=== PATIENT | female | born 1955 | race Caucasian/White ===

== ENCOUNTER 2018-01-29 10:00 | Outpatient (RCR) | payer OTHER, BC, SELFPAY ==
--- NOTE | 2018-01-14 09:55 | HP.PTEVAL_ITS ---
Patient's Visit Information ALICJA EISENBERG is a 62 year old F referred to Physical Therapy by MD BERE Krishnan with a diagnosis of gait abnormality, L sided weakness. Date of Evaluation: 01/14/18 Physical Therapist: Lincoln Dorado PT, - Visit Plan Frequency: 2-3x /Week Duration: 6 Weeks Plan: B UE and LE strengthening, balance and proprio ex's, core strengthening, gait training, nustep, and HEP - Subjective Subjective: Pt reports she was seeing her Dr because she was having seizures. Pt reports she had an MRI in July of 2017 which revealed she has had some TIA 's in the past. Pt reports she has had L sided weakness in the past, but notes it is getting worse. Pt reports she has fallen about 3 times in the past year, with her last one occuring 2 weeks ago. Pt reports she has been ambulating with a std cane for an AD. Pt reports she also has noticed decreased energy as a result. 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 No pain at this time, but Pt notes she has a Hx of LBP which she has had injections into for the past 2 years. Pt reports her major goal is to increase her balance and L sided strength. - Objective Neuro: B UE and LE sensation is WNL to light touch other than R LE L3. R pat tendon reflex= 1/3, L= 3/3. MMT: B UE and LE's are gossly 4-/5 to 4/5 throughout. Gait: Pt is able to ambulate greater than 1000 feet with std cane without being limited by fatigue. No episodes of LOB. Balance: Pt is able to DLS with EO/EC for 30 seconds, but is very unsteady constantly reaching out to grab on to objects. 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 Rehabilitation Potential: Good - Anticipated Interventions Patient/Client Instruction: Educate patient on: Condition, Plan of Care For the Purpose of:: To improve self management Therapeutic Exercise to Include: Strength training, Endurance training, Balance training, Gait and locomotor training, Dynamic Lumbar Stabilization For the Purpose of:: To improve muscle performance and motor function, To improve ability to perform ADL's, To increase tolerance to activity/condition/ position, To improve ability of physical actions for home/community/work/leisure , To improve gait and locomotor functions Thank you for the opportunity to evaluate your patient. For Medicare and Medicare HMO plans, please review the plan of care and approve it. It will need to be FAXED BACK to us at [phone] for Medicare purposes. Please let me know if there are questions or concerns regarding this plan of care. Physician Signature: Date:
--- NOTE | 2018-03-17 15:00 | HP.PTDCNRP_ITS ---
HP - Discharge Summary (1) - Patient Information ALICJA EISENBERG was seen in my office for initial evaluation on 01/14/18. The following Plan of Care was established for this patient: Initial Frequency: 2-3x /Week Initial Duration: 6 Weeks - Anticipated Interventions Patient/Client Instruction: Educate patient on: Condition, Plan of Care For the Purpose of:: To improve self management Therapeutic Exercise to Include: Strength training, Endurance training, Balance training, Gait and locomotor training, Dynamic Lumbar Stabilization For the Purpose of:: To improve muscle performance and motor function, To improve ability to perform ADL's, To increase tolerance to activity/condition/ position, To improve ability of physical actions for home/community/work/leisure , To improve gait and locomotor functions This patient was last seen in our office . Pertinent comments regarding their Physical therapy will appear below: Pt was treated for 6 PT visits through the date of 01/31/18. Pt then phoned the clinic the following date to report she was too sore from exercising and wanted to cancel all remaining appointments. At this point I will be discontinuing this patient from physical therapy. I would be happy to see this patient again in the future if found appropriate by the physician. Thank you! Lincoln Dorado, PT,
== END 2018-01-29 19:00 | disposition home or self-care (01) ==
LOC: PT 10:00
PROVIDERS: Family Provider Family Medicine; PCP Family Medicine; Visit Provider Psychiatry & Neurology Neurology
DX: R26.9 Unspecified abnormalities of gait and mobility (principal); R53.1 Weakness
CPT/HCPCS: 97110; 97162

== ENCOUNTER → 2018-04-21 14:18 | Outpatient (CLI) | payer OTHER, BC, SELFPAY ==
[2018-04-21 16:01] LABS: Absolute Lymphocyte Count 1.78 X10^3/ul (0.83-4.51); Absolute Neutrophil Count 2.7 X10^3/uL (2.0-7.7); Basophil# 0.09 X10^3/uL; Basophil% 1.7 % (0-1); Eosinophil# 0.16 X10^3/uL; Hematocrit 39.8 % (37-47); Hemoglobin 12.8 g/dl (12.0-15.0); Lymphocyte # 1.78 X10^3/ul (4.0); Lymphocyte % 33.7 % (19-41); Mean Corp Hgb Conc 32.2 g/gl (32-36); Mean Corpuscular Hgb 29.2 pg (27.0-32.0); Mean Corpuscular Volume 90.7 fL (81-99); Mean Platelet Vol. 9.4 fl (6.2-12.0); Monocyte% 9.5 % (0-10); Neutrophil # 2.74 X10^3/uL (2.7-7.7); Neutrophil % 51.9 % (47-70); Platelet Count 356 K/mm3 (150-450); RBC Distribution Width CV 13.6 % (11.6-14.6); RBC Distribution Width SD 44.8 fl (35.1-43.9); Red Blood Count 4.39 M/mm3 (4.2-5.4); White Blood Count 5.3 K/mm3 (4.4-11.0)
[2018-04-21 16:04] LABS: POSITIVE COUNT NO; POSITIVE DIFFERENTIAL NO; POSITIVE MORPHOLOGY NO
[2018-04-21 16:10] LABS: Anion Gap 7 (5-15); BUN 18 mg/dL (7-18); BUN/Creat Ratio 14.6 RATIO (10-20); Calcium,Total 8.9 mg/dL (8.5-10.1); Chloride 106 mmol/L (98-107); Creatinine, Serum 1.23 mg/dL (0.55-1.02); EST Glomerular Filtration Rate 47 mL/min (>60); Est Glom Filt Rate - Afr Amer 57 mL/min (>60); Glucose 101 mg/dL (74-106); Sodium Level 143 mmol/L (136-145)
== END ==
PROVIDERS: Visit Provider Family Medicine
DX: Z01.818 Encounter for other preprocedural examination (principal); G56.01 Carpal tunnel syndrome, right upper limb
CPT/HCPCS: 36415; 80048; 85025

== ENCOUNTER 2018-05-20 01:48 | Inpatient (IN) | payer OTHER, BC, SELFPAY ==
[2018-05-20] VITALS (13 sets, daily range): BP systolic 122–184; BP diastolic 58–98; PULSE 69–87; RESP 13–27; TEMP 36.4–36.9; O2SAT 90–100; BMI 41.0; BMI 39.8
--- NOTE | 2018-05-20 02:03 | CT_ITS ---
STUDY: CT ABDOMEN AND PELVIS WITHOUT CONTRAST REASON FOR EXAM: Female, 62 years old. Abdominal pain with recent history of cholecystitis RADIATION DOSAGE (If Supplied By Facility): CTDIvol = ( 20.62 ) mGy, DLP = ( 1076.89 ) mGycm TECHNIQUE: Transaxial images were obtained from the dome of the diaphragm to the symphysis pubis without oral contrast, and without intravenous contrast. Sagittal and coronal images were reconstructed. Individualized dose optimization techniques were used for this CT. COMPARISON: None. FINDINGS: Minimal bibasilar dependent atelectasis. The visualized portions of the heart are within normal limits. There is a hypoattenuated collection which courses through the medial aspect of the right hepatic lobe and which appears contiguous with the fundus of the gallbladder. Gallbladder demonstrates marked wall thickening and pericholecystic fat stranding. No biliary duct dilatation. Normal spleen. Normal pancreas. Normal bilateral adrenal glands. Normal right kidney. Normal left kidney. Normal bilateral ureters. Normal visualized stomach. Normal small intestine. Normal colon. The appendix is visualized and appears normal. Normal abdominal aorta. Normal inferior vena cava. Normal retroperitoneum. Normal urinary bladder. Uterus and bilateral adnexa are unremarkable. Bilateral fallopian clips are in place. Normal abdominal wall. Normal osseous structures. CT/Abdomen/Pelvis without Cont IMPRESSION: Findings concerning for acute cholecystitis with an associated hypoattenuated collection coursing through the medial aspect of the right hepatic lobe which appears contiguous with the fundus of the gallbladder, potentially representing an intra-hepatic abscess. Electronically Signed: González Worley MD at 3:12 EDT Tel , Service support ,
[2018-05-20 02:33] LABS: Absolute Lymphocyte Count 1.66 X10^3/ul (0.83-4.51); Absolute Neutrophil Count 3.1 X10^3/uL (2.0-7.7); Basophil# 0.06 X10^3/uL; Eosinophil# 0.18 X10^3/uL; Hematocrit 33.9 % (37-47); Lymphocyte # 1.66 X10^3/ul (4.0); Lymphocyte % 27.7 % (19-41); Mean Corp Hgb Conc 32.4 g/gl (32-36); Mean Corpuscular Hgb 28.1 pg (27.0-32.0); Mean Corpuscular Volume 86.7 fL (81-99); Mean Platelet Vol. 8.6 fl (6.2-12.0); Monocyte# 0.88 X10^3/uL; Monocyte% 14.7 % (0-10); Neutrophil % 51.8 % (47-70); POSITIVE COUNT NO; POSITIVE DIFFERENTIAL NO; POSITIVE MORPHOLOGY NO; Platelet Count 393 K/mm3 (150-450); RBC Distribution Width CV 14.3 % (11.6-14.6); RBC Distribution Width SD 45.3 fl (35.1-43.9); Red Blood Count 3.91 M/mm3 (4.2-5.4)
[2018-05-20 02:50] LABS: Lactic Acid 1.2 mmol/L (0.4-2.0)
--- NOTE | 2018-05-20 02:50 | ED.RN ---
DR CORTÉS NOTIFIED OF K+ RESULTS
[2018-05-20 02:52] LABS: AST(SGOT) 31 U/L (15-37); Alanine Aminotransfer ALT/SGPT 24 U/L (13-56); Albumin, Serum 2.9 g/dL (3.2-5.0); Alkaline Phosphatase 143 U/L (45-117); Anion Gap 8 (5-15); BUN 5 mg/dL (7-18); BUN/Creat Ratio 6.9 RATIO (10-20); Bilirubin, Direct 0.14 mg/dL (0.00-0.30); Calcium,Total 8.8 mg/dL (8.5-10.1); Chloride 99 mmol/L (98-107); Creatinine, Serum 0.72 mg/dL (0.55-1.02); EST Glomerular Filtration Rate 87 mL/min (>60); Est Glom Filt Rate - Afr Amer 105 mL/min (>60); Globulin 3.8 g/dL (2.2-4.2); Glucose 84 mg/dL (74-106); Potassium 2.5 mmol/L (3.5-5.1); Protein, Total 6.7 g/dL (6.4-8.2); Sodium Level 139 mmol/L (136-145)
--- NOTE | 2018-05-20 03:30 | ED.VISSUMM ---
- ER Visit Summary Date of Service: 05/20/18 Chief Complaint: [] Right-sided mid back pain History of Present Illness: The patient is a 62 F [] with right-sided mid back pain since today at 930. She was recently admitted [facility] diagnosed with acute cholecystitis placed on Zosyn as an inpatient. Spent several days in the hospital. Her white blood cell count trended down. She had a CT study that diagnosed this. She was told there is no gallstones. She was discharged on Augmentin orally. Her pain got significantly better. The plan was to do an outpatient lap surgery to remove her gallbladder but she wants to have this done as an outpatient here at [place]. No fevers or chills. No nausea or vomiting Physical Examination: [] Vital signs reviewed General: Well-nourished well-developed Head: Normocephalic atraumatic Eyes: Pupils equal round and reactive to light extraocular movements intact ENT: TMs clear no hemotympanum no trauma Neck: Nontender full range of motion Cardiovascular: Regular rate rhythm no murmurs normal S1-S2 Respiratory: No distress clear to auscultation bilaterally chest nontender Abdomen: Soft nontender nondistended normal bowel sounds no masses Back: Nontender no CVA tenderness Extremities: Nontender active range of motion ?4 extremities no trauma Skin: Normal color no trauma Neuro alert oriented cranial nerves II through XII intact normal strength sensation reflexes Test Results: [] Emergency Department Course and Treatment: [] Patient stated this is similar back pain that she had when she had her cholecystitis. CBC is normal except hemoglobin 1.0. Chemistries normal except potassium 2.5. Liver function tests normal except alk phos 143. Lipase is negative. CT abdomen pelvis shows hypoattenuated collection through the medial right liver lobe that appears contiguous with the gallbladder fundus. There is concern for acute cholecystitis and liver abscess. Patient will be switched to Cipro and Flagyl and given potassium chloride supplementation for her hypokalemia. She will be admitted for further evaluation and treatment of the above Treatment Plan: [] Disposition: [] Impression: [] Acute cholecystitis recurrent Liver abscess Hypokalemia This note was generated with [employer] dictation software. It may contain incorrect words, spelling, and punctuation that were not noted in review of the chart prior to signing ED Disposition - Plan for ED Patient: Chief Complaint: Back Referrals: Stevie Rooney MD [Primary Care Provider] -
[2018-05-20] MEDS: Ciprofloxacin 400 MG/200 ML BAG 200 MG IV ×2 (03:54→21:09)
--- NOTE | 2018-05-20 04:20 | HP.PCM_ITS ---
Problem List (1) Cholecystitis Status: Acute (2) Liver abscess Status: Acute (3) Arthritis Status: Chronic (4) seasonal allergies Status: Chronic (5) Mitochondrial disease Status: Chronic History of Present Illness Date of Admission: 05/20/18 Chief Complaint: abdominal pain The patient is a 62 year old female patient who was discharged last week after a four day stay at [facility] for cholecystitis presents to our ER with right sided mid back pain that began at 9:30 pm this evening. She has been on Augmentin since her discharge yet her CT scan reveals worsening cholecystitis with a 4cm abscess forming with the right lobe of the liver. She prefers to have surgery done in [place]. She will be admitted for treatment of acute cholecystitis and her hypokalemia will need to be replaced prior to a surgery. ] Past Medical History Past Medical History (Chronic Problems): Chronic Problems Arthritis (Chronic) seasonal allergies (Chronic) Seizure (Chronic) CC (collagenous colitis) (Chronic) Mitochondrial disease (Chronic) Allergies Sulfa (Sulfonamide Antibiotics) Adverse Reaction (Verified 01/15/17 21:39) Other Z-GUMARO Adverse Reaction (Uncoded 01/15/17 21:39) Other Home Medications: Ambulatory Orders Medication Instructions Recorded ALPRAZolam [Xanax] 2 mg PO QHS 01/15/17 Albuterol IH (ProAir) [Proair Hfa] 1 - 2 puff INHALATION Q6H PRN PRN 01/15/17 Cholecalciferol (Vitamin D3) 1,000 unit PO QHS 01/15/17 [Vitamin D3] Cyanocobalamin (Vitamin B-12) 1,000 mcg PO DAILY 01/15/17 [Vitamin B-12] Duloxetine Hcl [Cymbalta] 30 mg PO BID 01/15/17 Fluticasone 0.05% [Flonase Nasal 1 spray NASAL DAILY PRN 01/15/17 [place]] Gabapentin [Neurontin] 300 mg PO BIDCM 01/15/17 Lamotrigine [Lamictal] 300 mg PO BID 01/15/17 Lansoprazole 30 mg PO DAILY 01/15/17 Levocarnitine Tartrate 330 mg PO TID 01/15/17 [l-Carnitine] Ubidecarenone [Co Q-10] 200 mg PO TID 01/15/17 busPIRone [Buspar] 15 mg PO TID 01/15/17 Acetaminophen [Tylenol Tablet] 650 mg PO Q6H PRN PRN #0 tablet 01/16/17 Aspirin [Aspir-Low] 81 mg PO DAILY 05/20/18 Pramipexole Di-HCl [Mirapex ER] 3 mg PO QHS 05/20/18 Propranolol HCl [Inderal] 10 mg PO TID 05/20/18 Surgical History: - - tubal Smoking Status: Never smoker - *Family History Maternal History Items: - - lung disease and kidney disease Paternal History Items: - - father with mi 15 years ago, had bypass surgery Review of Systems Constitutional: Denies: Chills, Fever, Weight Change HEENT: Denies: Head Aches, Sinus Congestion, Sinus Drainage Cardiovascular: Denies: Chest Pain, Palpitations Respiratory: Denies: Cough, Shortness of breath at rest, Sputum production Gastrointestinal: Reports: Abdominal Pain, Diarrhea, Nausea. Denies: Vomiting Genitourinary: Denies: Dysuria Musculoskeletal: Reports: - - right back pain. Denies: Joint Pain, Joint Tenderness Skin: Denies: Rash, Wounds Neurological: Denies: Numbness, Tingling, Focal weakness Psychiatric: Denies: Anxiety, Depression, Homicidal Ideations, Suicidal Ideations Hematologic/ Lymphatic: Denies: Easy Bruising, Easy Bleeding VTE Information - Inpt Only VTE Present on Admission: No VTE Mechan Device Prophylaxis: None VTE Pharm Prophylaxis ordered?: Yes Patient Problems: Active and Suspected Problems Cholecystitis (Acute) Liver abscess (Acute) - Physical Exam General: Alert, Oriented x3, Cooperative HEENT: Atraumatic, Normocephalic Neck: Supple Lungs: Clear to auscultation, Normal air movement Cardiovascular: Regular rate, No murmurs Abdomen: Bowel Sounds Present, Tender - ruq Extremities: No edema, Capillary Refill Less than 3 Seconds Skin: No breakdown Musculoskeletal: No Tenderness to Palpation of Joints or Extremities Neurological: Neuro grossly intact Psych/Mental Status: Normal Affect, Appropriate Vital Signs Temp Pulse Resp BP Pulse Ox 97.6 F L 76 18 149/80 H 97 05/20/18 01:48 05/20/18 03:46 05/20/18 03:46 05/20/18 03:46 05/20/18 03:46 Oxygen Delivery Method Room Air Weight: 216 lb 14.958 oz Body Mass Index (BMI) 41.0 Laboratory Tests Past 24 Hrs 05/20/18 05/20/18 05/20/18 02:18 02:18 02:18 WBC 6.0 RBC 3.91 L Hgb 11.0 L Hct 33.9 L MCV 86.7 MCH 28.1 MCHC 32.4 RDW 14.3 RDW Differential 45.3 H Plt Count 393 MPV 8.6 Immature Gran % (Auto) 1.800 H Neut % (Auto) 51.8 Lymph % (Auto) 27.7 [place] % (Auto) 14.7 H Eos % (Auto) 3.0 Baso % (Auto) 1.0 Absolute Neuts (auto) 3.1 Absolute Lymphs (auto) 1.66 Total Counted Not Reportable Sodium 139 Potassium 2.5 L* Chloride 99 Carbon Dioxide 32.0 Anion Gap 8 BUN 5 L Creatinine 0.72 Estim Creat Clear Calc 62.70 Est GFR (MDRD) Af Amer 105 Est GFR (MDRD) Non-Af 87 BUN/Creatinine Ratio 6.9 L Glucose 84 Lactic Acid 1.2 Calcium 8.8 Total Bilirubin 0.40 Direct Bilirubin 0.14 AST 31 ALT 24 Alkaline Phosphatase 143 H Total Protein 6.7 Albumin 2.9 L Globulin 3.8 Assessment/Plan All Active Problems Cholecystitis (Acute) Liver abscess (Acute) Chest pain (Acute) Plan admit to general medical floor - NPO - Consult surgery Dr Gayle - IV ciprofloxacin and flagyl - D51/2NS with 20meq Kcl at 100 cc /hour - cbc, cmp in am - LMWH for DVT prophylaxis - morphine ad zofran prn Code Visit Inpatient E&M: 24777 Init Hosp L3
[2018-05-20] MEDS: Ondansetron 4 MG/2 ML Vial IV ×4 (04:31→21:23)
--- NOTE | 2018-05-20 08:17 | NURSING ---
Pt refuses to have the seizure pads in place, pillows placed. Pt is aware of [facility], but she states she can get in and out of bed easier if she doesn;t use them. Spouse in room at bedside.
[2018-05-20 08:26] LABS: Basophil# 0.12 X10^3/uL; Basophil% 2.2 % (0-1); Eosinophil# 0.21 X10^3/uL; Eosinophils% 3.8 % (0-5); Hematocrit 34.3 % (37-47); Hemoglobin 11.2 g/dl (12.0-15.0); Lymphocyte % 23.7 % (19-41); Mean Corp Hgb Conc 32.7 g/gl (32-36); Mean Corpuscular Hgb 28.6 pg (27.0-32.0); Mean Corpuscular Volume 87.5 fL (81-99); Mean Platelet Vol. 8.7 fl (6.2-12.0); Monocyte# 0.73 X10^3/uL; Monocyte% 13.3 % (0-10); Neutrophil # 2.97 X10^3/uL (2.7-7.7); Neutrophil % 54.1 % (47-70); Platelet Count 453 K/mm3 (150-450); RBC Distribution Width CV 14.2 % (11.6-14.6); RBC Distribution Width SD 44.5 fl (35.1-43.9); Red Blood Count 3.92 M/mm3 (4.2-5.4); White Blood Count 5.5 K/mm3 (4.4-11.0)
[2018-05-20 08:27] LABS: POSITIVE COUNT YES; POSITIVE DIFFERENTIAL NO; POSITIVE MORPHOLOGY YES
[2018-05-20 08:36] LABS: Lipase 109 U/L (73-393)
[2018-05-20 08:40] LABS: ALB/GLOB Ratio 0.8 RATIO (0.9-2.4); AST(SGOT) 29 U/L (15-37); Alanine Aminotransfer ALT/SGPT 24 U/L (13-56); Albumin, Serum 2.9 g/dL (3.2-5.0); Alkaline Phosphatase 142 U/L (45-117); Anion Gap 7 (5-15); BUN 4 mg/dL (7-18); BUN/Creat Ratio 5.9 RATIO (10-20); Calcium,Total 8.4 mg/dL (8.5-10.1); Chloride 103 mmol/L (98-107); Creatinine, Serum 0.67 mg/dL (0.55-1.02); EST Glomerular Filtration Rate 95 mL/min (>60); Est Glom Filt Rate - Afr Amer 115 mL/min (>60); Estimated Creatinine Clearance 67.38 ml/min; Globulin 3.8 g/dL (2.2-4.2); Glucose 85 mg/dL (74-106); Potassium 2.8 mmol/L (3.5-5.1); Protein, Total 6.7 g/dL (6.4-8.2); Sodium Level 140 mmol/L (136-145)
--- NOTE | 2018-05-20 08:50 | PCM.CONS.GEN ---
Problem List (1) Cholecystitis Status: Acute Reason for Consult Date of Consultation: 05/20/18 Reason for Consultation: Cholecystitis and liver abscess History of Present Illness: The patient is a 62 year old F who began to have epigastric pain 9 days ago. She says the pain started in her epigastric region and then moved to her shoulder blades and right upper quadrant. She presented to [facility] last Saturday and was admitted and kept on antibiotics for 4 days and discharged on antibiotics. She said that last night her pain started again and radiated to the back and she presented to our emergency room. She did have nausea today but no vomiting. She is denying fevers or chills. She said they did not remove her gallbladder at [facility] due to the amount of inflammation. Past Medical History Past Medical History (Chronic Problems): Chronic Problems Arthritis (Chronic) seasonal allergies (Chronic) Seizure (Chronic) CC (collagenous colitis) (Chronic) Mitochondrial disease (Chronic) Allergies Sulfa (Sulfonamide Antibiotics) Adverse Reaction (Verified 01/15/17 21:39) Other Z-GUMARO Adverse Reaction (Uncoded 01/15/17 21:39) Other Home Medications: Ambulatory Orders Medication Instructions Recorded ALPRAZolam [Xanax] 2 mg PO QHS 01/15/17 Albuterol IH (ProAir) [Proair Hfa] 1 - 2 puff INHALATION Q6H PRN PRN 01/15/17 Cholecalciferol (Vitamin D3) 1,000 unit PO DINNER 01/15/17 [Vitamin D3] Cyanocobalamin (Vitamin B-12) 1,000 mcg PO DAILY 01/15/17 [Vitamin B-12] Duloxetine Hcl [Cymbalta] 30 mg PO BID 01/15/17 Fluticasone 0.05% [Flonase Nasal 1 spray NASAL DAILY PRN 01/15/17 [place]] Gabapentin [Neurontin] 300 mg PO BIDCM 01/15/17 Lamotrigine [Lamictal] 300 mg PO BID 01/15/17 Lansoprazole 30 mg PO DAILY 01/15/17 Levocarnitine Tartrate 330 mg PO TID 01/15/17 [l-Carnitine] Ubidecarenone [Co Q-10] 200 mg PO TID 01/15/17 busPIRone [Buspar] 15 mg PO TID 01/15/17 Acetaminophen [Tylenol Tablet] 650 mg PO Q6H PRN PRN #0 tablet 01/16/17 Aspirin [Aspir-Low] 81 mg PO DAILY 05/20/18 Pramipexole Di-HCl [Mirapex ER] 3 mg PO QHS 05/20/18 Propranolol HCl [Inderal] 10 mg PO TID 05/20/18 Surgical History: - - tubal Smoking Status: Never smoker - *Family History Maternal History Items: - - lung disease and kidney disease Paternal History Items: - - father with mi 15 years ago, had bypass surgery Review of Systems Constitutional: Denies: Anorexia, Fever HEENT: Denies: Difficulty Swallowing Cardiovascular: Denies: Chest Pain Respiratory: Denies: Cough, Shortness of Breath Gastrointestinal: Reports: Abdominal Pain, Nausea. Denies: Diarrhea, Vomiting Genitourinary: Denies: Dysuria Musculoskeletal: Denies: Joint Tenderness Skin: Denies: Jaundice Neurological: Denies: Balance problems Psychiatric: Reports: Anxiety Hematologic/ Lymphatic: Denies: Anemia Patient Problems: Active and Suspected Problems Cholecystitis (Acute) Liver abscess (Acute) - Physical Exam General: Alert, Oriented x3, Cooperative, No apparent distress HEENT: Atraumatic, PERRLA, EOMI, Normocephalic Oral: Moist Mucosa Neck: Supple, No JVD Lungs: Normal air movement Cardiovascular: Regular rate, Regular Rhythm Abdomen: Soft, Non-Distended, Tender - Mild tenderness to palpation of the right upper quadrant. No guarding or rebound. Musculoskeletal: No Tenderness to Palpation of Joints or Extremities Neurological: Cranial nerves II-XII grossly intact Psych/Mental Status: Normal Affect Vital Signs Temp Pulse Resp BP Pulse Ox 97.8 F 69 16 150/80 H 99 05/20/18 05:23 05/20/18 05:23 05/20/18 05:23 05/20/18 05:23 05/20/18 05:23 Oxygen Delivery Method Room Air Weight: 210 lb 12.191 oz Body Mass Index (BMI) 39.8 Laboratory Tests Past 24 Hrs 05/20/18 05/20/18 05/20/18 07:45 07:45 07:55 WBC 5.5 RBC 3.92 L Hgb 11.2 L Hct 34.3 L MCV 87.5 MCH 28.6 MCHC 32.7 RDW 14.2 RDW Differential 44.5 H Plt Count 453 H MPV 8.7 Immature Gran % (Auto) 2.900 H Neut % (Auto) 54.1 Lymph % (Auto) 23.7 [place] % (Auto) 13.3 H Eos % (Auto) 3.8 Baso % (Auto) 2.2 H Absolute Neuts (auto) 3.0 Absolute Lymphs (auto) 1.30 Total Counted Not Reportable Diff Path Review May foll Sodium 140 Potassium 2.8 L Chloride 103 Carbon Dioxide 30.0 Anion Gap 7 BUN 4 L Creatinine 0.67 Estim Creat Clear Calc 67.38 Est GFR (MDRD) Af Amer 115 Est GFR (MDRD) Non-Af 95 BUN/Creatinine Ratio 5.9 L Glucose 85 Calcium 8.4 L Total Bilirubin 0.40 AST 29 ALT 24 Alkaline Phosphatase 142 H Total Protein 6.7 Albumin 2.9 L Globulin 3.8 Albumin/Globulin Ratio 0.8 L Lipase 109 Clinical Impression(s) from Imaging Studies Abdomen/Pelvis CT 05/20/18 02:03 IMPRESSION: Findings concerning for acute cholecystitis with an associated hypoattenuated collection coursing through the medial aspect of the right hepatic lobe which appears contiguous with the fundus of the gallbladder, potentially representing an intra-hepatic abscess. Electronically Signed: González Worley MD at 3:12 EDT Tel , Service support , Assessment/Plan All Active Problems Cholecystitis (Acute) Liver abscess (Acute) Chest pain (Acute) 62-year-old female with acute cholecystitis and possible liver abscess 1. The patient is now 9 days out from her initial presentation of the illness. There is a lot of inflammation on the patient's CAT scan. At this time I do not recommend surgery due to the amount of inflammation. I recommend percutaneous drainage of the gallbladder and possibly this fluid collection. We would need a CT scan with IV contrast to ensure that it is an abscess first. 2. The patient may then follow-up with myself or Dr. Farr for surgical treatment planned in 6-8 weeks once inflammation has resolved. 3. I will discuss the case with radiology and have them perform a CT scan with IV contrast to ensure that this is an abscess and then perform percutaneous drainage of both the abscess and the gallbladder. She may then be started on a diet and continued on antibiotics and likely discharged home tomorrow if there is no systemic inflammatory response. She would follow-up with myself or Dr. Farr for surgery. 4. I discussed this with the patient in detail. I discussed the risks of surgery at this time and the high likelihood of having to convert to an open surgery or perform partial cholecystectomy due to the amount of inflammation and the abscess nearby. The patient understands the reason for the percutaneous drainage and does consent for drain placement. Cornel Gayle MD Pager: [facility] [address] [place] [address], [address] [place] [address] Office:
--- NOTE | 2018-05-20 08:54 | CON.PCM_ITS ---
Problem List (1) Cholecystitis Status: Acute Reason for Consult Date of Consultation: 05/20/18 Reason for Consultation: Cholecystitis and liver abscess History of Present Illness: The patient is a 62 year old F who began to have epigastric pain 9 days ago. She says the pain started in her epigastric region and then moved to her shoulder blades and right upper quadrant. She presented to [facility] last Saturday and was admitted and kept on antibiotics for 4 days and discharged on antibiotics. She said that last night her pain started again and radiated to the back and she presented to our emergency room. She did have nausea today but no vomiting. She is denying fevers or chills. She said they did not remove her gallbladder at [facility] due to the amount of inflammation. Past Medical History Past Medical History (Chronic Problems): Chronic Problems Arthritis (Chronic) seasonal allergies (Chronic) Seizure (Chronic) CC (collagenous colitis) (Chronic) Mitochondrial disease (Chronic) Allergies Sulfa (Sulfonamide Antibiotics) Adverse Reaction (Verified 01/15/17 21:39) Other Z-GUMARO Adverse Reaction (Uncoded 01/15/17 21:39) Other Home Medications: Ambulatory Orders Medication Instructions Recorded ALPRAZolam [Xanax] 2 mg PO QHS 01/15/17 Albuterol IH (ProAir) [Proair Hfa] 1 - 2 puff INHALATION Q6H PRN PRN 01/15/17 Cholecalciferol (Vitamin D3) 1,000 unit PO DINNER 01/15/17 [Vitamin D3] Cyanocobalamin (Vitamin B-12) 1,000 mcg PO DAILY 01/15/17 [Vitamin B-12] Duloxetine Hcl [Cymbalta] 30 mg PO BID 01/15/17 Fluticasone 0.05% [Flonase Nasal 1 spray NASAL DAILY PRN 01/15/17 [place]] Gabapentin [Neurontin] 300 mg PO BIDCM 01/15/17 Lamotrigine [Lamictal] 300 mg PO BID 01/15/17 Lansoprazole 30 mg PO DAILY 01/15/17 Levocarnitine Tartrate 330 mg PO TID 01/15/17 [l-Carnitine] Ubidecarenone [Co Q-10] 200 mg PO TID 01/15/17 busPIRone [Buspar] 15 mg PO TID 01/15/17 Acetaminophen [Tylenol Tablet] 650 mg PO Q6H PRN PRN #0 tablet 01/16/17 Aspirin [Aspir-Low] 81 mg PO DAILY 05/20/18 Pramipexole Di-HCl [Mirapex ER] 3 mg PO QHS 05/20/18 Propranolol HCl [Inderal] 10 mg PO TID 05/20/18 Surgical History: - - tubal Smoking Status: Never smoker - *Family History Maternal History Items: - - lung disease and kidney disease Paternal History Items: - - father with mi 15 years ago, had bypass surgery Review of Systems Constitutional: Denies: Anorexia, Fever HEENT: Denies: Difficulty Swallowing Cardiovascular: Denies: Chest Pain Respiratory: Denies: Cough, Shortness of Breath Gastrointestinal: Reports: Abdominal Pain, Nausea. Denies: Diarrhea, Vomiting Genitourinary: Denies: Dysuria Musculoskeletal: Denies: Joint Tenderness Skin: Denies: Jaundice Neurological: Denies: Balance problems Psychiatric: Reports: Anxiety Hematologic/ Lymphatic: Denies: Anemia Patient Problems: Active and Suspected Problems Cholecystitis (Acute) Liver abscess (Acute) - Physical Exam General: Alert, Oriented x3, Cooperative, No apparent distress HEENT: Atraumatic, PERRLA, EOMI, Normocephalic Oral: Moist Mucosa Neck: Supple, No JVD Lungs: Normal air movement Cardiovascular: Regular rate, Regular Rhythm Abdomen: Soft, Non-Distended, Tender - Mild tenderness to palpation of the right upper quadrant. No guarding or rebound. Musculoskeletal: No Tenderness to Palpation of Joints or Extremities Neurological: Cranial nerves II-XII grossly intact Psych/Mental Status: Normal Affect Vital Signs Temp Pulse Resp BP Pulse Ox 97.8 F 69 16 150/80 H 99 05/20/18 05:23 05/20/18 05:23 05/20/18 05:23 05/20/18 05:23 05/20/18 05:23 Oxygen Delivery Method Room Air Weight: 210 lb 12.191 oz Body Mass Index (BMI) 39.8 Laboratory Tests Past 24 Hrs 05/20/18 05/20/18 05/20/18 07:45 07:45 07:55 WBC 5.5 RBC 3.92 L Hgb 11.2 L Hct 34.3 L MCV 87.5 MCH 28.6 MCHC 32.7 RDW 14.2 RDW Differential 44.5 H Plt Count 453 H MPV 8.7 Immature Gran % (Auto) 2.900 H Neut % (Auto) 54.1 Lymph % (Auto) 23.7 [place] % (Auto) 13.3 H Eos % (Auto) 3.8 Baso % (Auto) 2.2 H Absolute Neuts (auto) 3.0 Absolute Lymphs (auto) 1.30 Total Counted Not Reportable Diff Path Review May foll Sodium 140 Potassium 2.8 L Chloride 103 Carbon Dioxide 30.0 Anion Gap 7 BUN 4 L Creatinine 0.67 Estim Creat Clear Calc 67.38 Est GFR (MDRD) Af Amer 115 Est GFR (MDRD) Non-Af 95 BUN/Creatinine Ratio 5.9 L Glucose 85 Calcium 8.4 L Total Bilirubin 0.40 AST 29 ALT 24 Alkaline Phosphatase 142 H Total Protein 6.7 Albumin 2.9 L Globulin 3.8 Albumin/Globulin Ratio 0.8 L Lipase 109 Clinical Impression(s) from Imaging Studies Abdomen/Pelvis CT 05/20/18 02:03 IMPRESSION: Findings concerning for acute cholecystitis with an associated hypoattenuated collection coursing through the medial aspect of the right hepatic lobe which appears contiguous with the fundus of the gallbladder, potentially representing an intra-hepatic abscess. Electronically Signed: González Worley MD at 3:12 EDT Tel , Service support , Assessment/Plan All Active Problems Cholecystitis (Acute) Liver abscess (Acute) Chest pain (Acute) 62-year-old female with acute cholecystitis and possible liver abscess 1. The patient is now 9 days out from her initial presentation of the illness. There is a lot of inflammation on the patient's CAT scan. At this time I do not recommend surgery due to the amount of inflammation. I recommend percutaneous drainage of the gallbladder and possibly this fluid collection. We would need a CT scan with IV contrast to ensure that it is an abscess first. 2. The patient may then follow-up with myself or Dr. Farr for surgical treatment planned in 6-8 weeks once inflammation has resolved. 3. I will discuss the case with radiology and have them perform a CT scan with IV contrast to ensure that this is an abscess and then perform percutaneous drainage of both the abscess and the gallbladder. She may then be started on a diet and continued on antibiotics and likely discharged home tomorrow if there is no systemic inflammatory response. She would follow-up with myself or Dr. Farr for surgery. 4. I discussed this with the patient in detail. I discussed the risks of surgery at this time and the high likelihood of having to convert to an open surgery or perform partial cholecystectomy due to the amount of inflammation and the abscess nearby. The patient understands the reason for the percutaneous drainage and does consent for drain placement. Cornel Gayle MD Pager: [facility] [address] [place] [address], [address] [place] [address] Office:
--- NOTE | 2018-05-20 09:21 | CT_ITS ---
PROCEDURE: CT-GUIDED CHOLECYSTOSTOMY TUBE PLACEMENT INDICATION: Female, 62 years old. Acute cholecystitis CT GUIDANCE Individualized dose optimization techniques were used during this procedure CONSENT: The risks, benefits and alternatives to the procedure were explained to the patient, and the patient agreed to the procedure and signed the consent. SEDATION: Intermittent the intravenous and demonstration of Versed and fentanyl by nursing staff under continuous cardiopulmonary monitoring. Sedation less than approximately 20 minutes STERILE BARRIER TECHNIQUE: The following sterile barrier precautions were used during the procedure: hand hygiene; use of 2% chlorhexidine aseptic; use of a cap, mask, sterile gown, sterile gloves, sterile full body drape, and a large sterile sheet. PROCEDURE/TECHNIQUE: The risks, benefits, and alternatives to the procedure were explained to patient, and the patient agreed to the procedure and signed a consent form for the procedure. A timeout was performed to confirm the patient's identity, the type of procedure, to be performed and the site of entry. Patient was positioned decubitus position on the CT scan table. Under CT guidance using sterile technique and after infiltration of the skin and subcutaneous soft tissues with 40 mL of lidocaine 1% 20-gauge needle was introduced in the gallbladder then 0.018 guidewire was advanced and the needle the needle was removed and a 4 Australian sheath was advanced over the guidewire then the existing guidewire is removed and a new 0.035 J-tip guidewire was advanced in the 4 Australian dilator then the 4 Australian guide is removed and the tract is serially dilated up to 8 Australian. An 8 Australian catheter is advanced over the guidewire and is coiled within the gallbladder. The drainage catheter is secured to the skin using an adhesive device and is attached to a bag for continuous drainage. There was no immediate complication. FINDINGS: Gallbladder was successfully drained with an [address]/Abscess/Fistula/Sinus Tract IMPRESSION: Successful cholecystostomy tube placement under CT guidance. Electronically Signed: Jasmin Cowart MD at 12:35 EDT Tel , Service support ,
[2018-05-20 10:52] LABS: International Normalized Ratio 1.1; Prothrombin Time (Protime)PT. 13.7 SECONDS (11.7-14.9)
[2018-05-20 10:53] LABS: Partial Thromboplast Time 34.9 Seconds (24.1-36.2)
--- NOTE | 2018-05-20 10:57 | NURSING ---
CT notified that pt did not want to come because she wanted to get something for her nerves, and has hx of seizures, they said she would get something down there.pt informed.
[2018-05-20] MEDS: 0.9% NaCl Peripheral Flush Adult/Peds IV ×3 (12:22→18:10)
[2018-05-20] MEDS: Morphine 2 MG/ML Syringe IV ×4 (12:22→21:19)
[2018-05-20 12:43] LABS: Magnesium 2.1 mg/dL (1.6-2.6)
--- NOTE | 2018-05-20 13:40 | CASEMGMT ---
RN KRYSTINA Face to Face with patient for initial transition planning/care coordination assessment. RN CM introduced self and role at [facility]. Patient sitting in chair, alert and oriented. Patient willing to participate in assessment and is able to answer all questions appropriately. Care providers, pharmacy, and demographics verified. See link attached. Patient wishes to discharge home, denies need for home health at this time. Patient states she has no further needs or concerns at this time. CM to follow for discharge planning needs that may arise. Disposition Plan: Patient to discharge home with family support and follow-up plans in place.
[2018-05-20] MEDS: lamoTRIgine 150 MG Tablet 300 MG PO ×2 (15:06→21:30)
--- NOTE | 2018-05-20 16:50 | PCM.PN.HOSP ---
Patient Problems: Active and Suspected Problems Cholecystitis (Acute) Liver abscess (Acute) Subjective: Patient was seen and examined. Complains of anxiety. Kept n.p.o. by general surgeon. Went down for CT-guided placement of cholecystostomy tube. Patient denies fever or chills. No seizures seen since admission. Complains of multiple bowel movements today, watery, nonbloody. Vitals/I&O's: Vital Signs Temp Pulse Resp BP Pulse Ox 98.4 F 83 16 154/83 H 96 05/20/18 12:15 05/20/18 15:04 05/20/18 12:15 05/20/18 15:04 05/20/18 12:15 Oxygen Flow Rate (L/min) [6] 2 Oxygen Flow Rate (L/min) 2 Oxygen Delivery Method [6] Nasal Cannula Oxygen Delivery Method [5] Room Air Oxygen Delivery Method [4] Room Air Oxygen Delivery Method [3] Room Air Oxygen Delivery Method [2] Room Air Oxygen Delivery Method [1 ( Room Air Initial Baseline)] Oxygen Delivery Method Room Air Weight: 95.6 kg Body Mass Index (BMI) 39.8 Intake and Output for Last 24 Hours 05/18/18 05/19/18 05/20/18 23:59 23:59 23:59 Intake Total 800 / 800 Output Total 70 / 70 Balance 730 / 730 General: Alert, Oriented x3, Cooperative, No apparent distress HEENT: Atraumatic, PERRLA, EOMI, Normocephalic Oral: Moist Mucosa Neck: Supple, No JVD, Negative Carotid Bruits Lungs: Clear to auscultation, Normal air movement Cardiovascular: Regular rate, Regular Rhythm, Normal S1, Normal S2, No murmurs Abdomen: Bowel Sounds Present, Soft, Non Tender, Tender - over the right upper quadrant, YVETTE drain in situ Extremities: No edema, Capillary Refill Less than 3 Seconds Skin: No rashes Musculoskeletal: No Tenderness to Palpation of Joints or Extremities Lymphatic: No Cervical, Supraclavicular, or Inguinal Adenopathy Neurological: Cranial nerves II-XII grossly intact, Neuro grossly intact Psych/Mental Status: Normal Affect, Appropriate Microbiology Past 72 Hours 05/20/18 12:47 Fluid - Gallbladder Gram Stain - Final Laboratory Results 05/20/18 07:45: WBC 5.5, RBC 3.92 L, Hgb 11.2 L, Hct 34.3 L, MCV 87.5, MCH 28.6, MCHC 32.7, RDW 14.2, RDW Differential 44.5 H, Plt Count 453 H, MPV 8.7, Immature Gran % (Auto) 2.900 H, Neut % (Auto) 54.1, Lymph % (Auto) 23.7, [place] % (Auto) 13.3 H, Eos % (Auto) 3.8, Baso % (Auto) 2.2 H, Absolute Neuts (auto) 3.0, Absolute Lymphs (auto) 1.30, Total Counted Not Reportable, Diff Path Review February05/20/18 07:45: Sodium 140, Potassium 2.8 L, Chloride 103, Carbon Dioxide 30.0, Anion Gap 7, BUN 4 L, Creatinine 0.67, Estim Creat Clear Calc 67.38, Est GFR (MDRD) Af Amer 115, Est GFR (MDRD) Non-Af 95, BUN/Creatinine Ratio 5.9 L, Glucose 85, Calcium 8.4 L, Total Bilirubin 0.40, AST 29, ALT 24, Alkaline Phosphatase 142 H, Total Protein 6.7, Albumin 2.9 L, Globulin 3.8, Albumin/Globulin Ratio 0.8 L 05/20/18 07:45: Magnesium 2.1 05/20/18 07:55: Lipase 109 05/20/18 10:12: PT 13.7, INR 1.1, APTT 34.9 Current Medications Enoxaparin Sodium (Lovenox) 40 mg SC DAILY@1000 [facility] Last Admin: 05/20/18 10:39 Dose: Not Given Ciprofloxacin (Cipro) 400 mg in 200 mls @ 200 mls/hr IV Q12 [facility] Last Admin: 05/20/18 07:59 Dose: Not Given Potassium Chloride/Dextrose/Sod Cl (Kcl 20meq In D5.45ns 1000ml) 1,000 mls @ 100 mls/hr IV .Q10H [facility] Last Admin: 05/20/18 12:17 Dose: 100 mls/hr Metronidazole (Flagyl) 500 mg in 100 mls @ 100 mls/hr IV Q8 [facility] Last Admin: 05/20/18 13:49 Dose: 100 mls/hr Pantoprazole Sodium 40 mg/ (Sodium Chloride) 110 mls @ 330 mls/hr IV Q24 [facility] Last Admin: 05/20/18 15:06 Dose: 330 mls/hr Lamotrigine (Lamictal) 300 mg PO BID [facility] Last Admin: 05/20/18 15:06 Dose: 300 mg Levocarnitine (Carnitor) 330 mg PO TIDCM [facility] Lorazepam (Ativan) 1 mg IV Q6H PRN PRN PRN Reason: ANXIETY Magnesium Hydroxide (Milk Of Magnesia) 30 ml PO DAILY PRN PRN PRN Reason: Constipation Morphine Sulfate () 2 mg IV Q2H PRN PRN PRN Reason: SEVERE PAIN (6-10/10) Last Admin: 05/20/18 15:07 Dose: 2 mg Ondansetron HCl (Zofran) 4 mg IV Q6H PRN PRN PRN Reason: NAUSEA Last Admin: 05/20/18 14:00 Dose: 4 mg Pramipexole Dihydrochloride (Mirapex) 1 mg PO TID [facility] Sodium Chloride () 5 - 30 ml IV UD PRN PRN Reason: SALINE FLUSH Last Admin: 05/20/18 15:07 Dose: 10 ml Medical Necessity - Tobacco Use Smoking Status: Never smoker Assessment/Plan All Active Problems Cholecystitis (Acute) Liver abscess (Acute) Chest pain (Acute) 62-year-old female with past medical history of seizure disorder, mitochondrial disease, recently had right carpal tunnel surgery, comes in with complaints of right upper quadrant pain associated with fever. Patient was admitted to telemetry floor with acute cholecystitis with possible intrahepatic abscess. 1. Acute diarrhea, unclear etiology, will send stool samples for enteric panel, C. difficile Patient had a recent hospital stay for right carpal tunnel surgery 2. Acute cholecystitis with possible intrahepatic abscess seen on CT of the abdomen, general surgery consulted, appreciate recommendations, Ct guidedstatus post cholecystostomy tube by interventional radiology, will trend LFTs 3. Hypokalemia, severe, likely secondary to acute diarrhea, will replace, recheck in a.m. 4. Seizure Disorder, continue on Lamictal 5. Mitochondrial disease 6. Anxiety disorder, home medications on hold because of n.p.o. status, will put on as needed Ativan 7. DVT PPx- Lovenox SC Code Visit Inpatient E&M: 15391 Subs Hosp L2
--- NOTE | 2018-05-20 16:56 | PN_ITS ---
Patient Problems: Active and Suspected Problems Cholecystitis (Acute) Liver abscess (Acute) Subjective: Patient was seen and examined. Complains of anxiety. Kept n.p.o. by general surgeon. Went down for CT-guided placement of cholecystostomy tube. Patient denies fever or chills. No seizures seen since admission. Complains of multiple bowel movements today, watery, nonbloody. Vitals/I&O's: Vital Signs Temp Pulse Resp BP Pulse Ox 98.4 F 83 16 154/83 H 96 05/20/18 12:15 05/20/18 15:04 05/20/18 12:15 05/20/18 15:04 05/20/18 12:15 Oxygen Flow Rate (L/min) [6] 2 Oxygen Flow Rate (L/min) 2 Oxygen Delivery Method [6] Nasal Cannula Oxygen Delivery Method [5] Room Air Oxygen Delivery Method [4] Room Air Oxygen Delivery Method [3] Room Air Oxygen Delivery Method [2] Room Air Oxygen Delivery Method [1 ( Room Air Initial Baseline)] Oxygen Delivery Method Room Air Weight: 95.6 kg Body Mass Index (BMI) 39.8 Intake and Output for Last 24 Hours 05/18/18 05/19/18 05/20/18 23:59 23:59 23:59 Intake Total 800 / 800 Output Total 70 / 70 Balance 730 / 730 General: Alert, Oriented x3, Cooperative, No apparent distress HEENT: Atraumatic, PERRLA, EOMI, Normocephalic Oral: Moist Mucosa Neck: Supple, No JVD, Negative Carotid Bruits Lungs: Clear to auscultation, Normal air movement Cardiovascular: Regular rate, Regular Rhythm, Normal S1, Normal S2, No murmurs Abdomen: Bowel Sounds Present, Soft, Non Tender, Tender - over the right upper quadrant, YVETTE drain in situ Extremities: No edema, Capillary Refill Less than 3 Seconds Skin: No rashes Musculoskeletal: No Tenderness to Palpation of Joints or Extremities Lymphatic: No Cervical, Supraclavicular, or Inguinal Adenopathy Neurological: Cranial nerves II-XII grossly intact, Neuro grossly intact Psych/Mental Status: Normal Affect, Appropriate Microbiology Past 72 Hours 05/20/18 12:47 Fluid - Gallbladder Gram Stain - Final Laboratory Results 05/20/18 07:45: WBC 5.5, RBC 3.92 L, Hgb 11.2 L, Hct 34.3 L, MCV 87.5, MCH 28.6 , MCHC 32.7, RDW 14.2, RDW Differential 44.5 H, Plt Count 453 H, MPV 8.7, Immature Gran % (Auto) 2.900 H, Neut % (Auto) 54.1, Lymph % (Auto) 23.7, [place] % (Auto) 13.3 H, Eos % (Auto) 3.8, Baso % (Auto) 2.2 H, Absolute Neuts (auto) 3.0 , Absolute Lymphs (auto) 1.30, Total Counted Not Reportable, Diff Path Review February05/20/18 07:45: Sodium 140, Potassium 2.8 L, Chloride 103, Carbon Dioxide 30.0, Anion Gap 7, BUN 4 L, Creatinine 0.67, Estim Creat Clear Calc 67.38, Est GFR ( MDRD) Af Amer 115, Est GFR (MDRD) Non-Af 95, BUN/Creatinine Ratio 5.9 L, Glucose 85, Calcium 8.4 L, Total Bilirubin 0.40, AST 29, ALT 24, Alkaline Phosphatase 142 H, Total Protein 6.7, Albumin 2.9 L, Globulin 3.8, Albumin/ Globulin Ratio 0.8 L 05/20/18 07:45: Magnesium 2.1 05/20/18 07:55: Lipase 109 05/20/18 10:12: PT 13.7, INR 1.1, APTT 34.9 Current Medications Enoxaparin Sodium (Lovenox) 40 mg SC DAILY@1000 [facility] Last Admin: 05/20/18 10:39 Dose: Not Given Ciprofloxacin (Cipro) 400 mg in 200 mls @ 200 mls/hr IV Q12 [facility] Last Admin: 05/20/18 07:59 Dose: Not Given Potassium Chloride/Dextrose/Sod Cl (Kcl 20meq In D5.45ns 1000ml) 1,000 mls @ 100 mls/hr IV .Q10H [facility] Last Admin: 05/20/18 12:17 Dose: 100 mls/hr Metronidazole (Flagyl) 500 mg in 100 mls @ 100 mls/hr IV Q8 [facility] Last Admin: 05/20/18 13:49 Dose: 100 mls/hr Pantoprazole Sodium 40 mg/ (Sodium Chloride) 110 mls @ 330 mls/hr IV Q24 [facility] Last Admin: 05/20/18 15:06 Dose: 330 mls/hr Lamotrigine (Lamictal) 300 mg PO BID [facility] Last Admin: 05/20/18 15:06 Dose: 300 mg Levocarnitine (Carnitor) 330 mg PO TIDCM [facility] Lorazepam (Ativan) 1 mg IV Q6H PRN PRN PRN Reason: ANXIETY Magnesium Hydroxide (Milk Of Magnesia) 30 ml PO DAILY PRN PRN PRN Reason: Constipation Morphine Sulfate () 2 mg IV Q2H PRN PRN PRN Reason: SEVERE PAIN (6-10/10) Last Admin: 05/20/18 15:07 Dose: 2 mg Ondansetron HCl (Zofran) 4 mg IV Q6H PRN PRN PRN Reason: NAUSEA Last Admin: 05/20/18 14:00 Dose: 4 mg Pramipexole Dihydrochloride (Mirapex) 1 mg PO TID [facility] Sodium Chloride () 5 - 30 ml IV UD PRN PRN Reason: SALINE FLUSH Last Admin: 05/20/18 15:07 Dose: 10 ml Medical Necessity - Tobacco Use Smoking Status: Never smoker Assessment/Plan All Active Problems Cholecystitis (Acute) Liver abscess (Acute) Chest pain (Acute) 62-year-old female with past medical history of seizure disorder, mitochondrial disease, recently had right carpal tunnel surgery, comes in with complaints of right upper quadrant pain associated with fever. Patient was admitted to telemetry floor with acute cholecystitis with possible intrahepatic abscess. 1. Acute diarrhea, unclear etiology, will send stool samples for enteric panel , C. difficile Patient had a recent hospital stay for right carpal tunnel surgery 2. Acute cholecystitis with possible intrahepatic abscess seen on CT of the abdomen, general surgery consulted, appreciate recommendations, Ct guidedstatus post cholecystostomy tube by interventional radiology, will trend LFTs 3. Hypokalemia, severe, likely secondary to acute diarrhea, will replace, recheck in a.m. 4. Seizure Disorder, continue on Lamictal 5. Mitochondrial disease 6. Anxiety disorder, home medications on hold because of n.p.o. status, will put on as needed Ativan 7. DVT PPx- Lovenox SC Code Visit Inpatient E&M: 84206 Subs Hosp L2
[2018-05-20 18:44] LABS: Anion Gap 11 (5-15); BUN 3 mg/dL (7-18); Calcium,Total 8.2 mg/dL (8.5-10.1); Chloride 105 mmol/L (98-107); EST Glomerular Filtration Rate 108 mL/min (>60); Est Glom Filt Rate - Afr Amer 131 mL/min (>60); Estimated Creatinine Clearance 75.24 ml/min; Glucose 85 mg/dL (74-106); Sodium Level 139 mmol/L (136-145)
[2018-05-20] MEDS: LORazepam 2 MG/ML Syringe 1 MG IV (21:12)
[2018-05-20] MEDS: Pramipexole Di-HCl 1 MG Tablet PO (21:30)
[2018-05-21] MEDS: Morphine 2 MG/ML Syringe IV ×2 (00:51→11:29)
[2018-05-21] MEDS: Ibuprofen 600 MG Tablet PO (00:52)
[2018-05-21 03:00] VITALS: BP 145/78; PULSE 85; RESP 16; TEMP 36.6; O2SAT 98
[2018-05-21] MEDS: LORazepam 2 MG/ML Syringe 1 MG IV ×2 (06:19→12:31)
[2018-05-21] MEDS: Pramipexole Di-HCl 1 MG Tablet PO ×2 (06:25→15:01)
[2018-05-21 06:36] LABS: Hematocrit 34.2 % (37-47); Hemoglobin 11.2 g/dl (12.0-15.0); Mean Corp Hgb Conc 32.7 g/gl (32-36); Mean Corpuscular Hgb 28.6 pg (27.0-32.0); Mean Corpuscular Volume 87.2 fL (81-99); Mean Platelet Vol. 8.6 fl (6.2-12.0); Platelet Count 440 K/mm3 (150-450); RBC Distribution Width CV 14.6 % (11.6-14.6); RBC Distribution Width SD 45.1 fl (35.1-43.9); Red Blood Count 3.92 M/mm3 (4.2-5.4); White Blood Count 5.7 K/mm3 (4.4-11.0)
[2018-05-21 06:40] LABS: ALB/GLOB Ratio 0.7 RATIO (0.9-2.4); AST(SGOT) 27 U/L (15-37); Alanine Aminotransfer ALT/SGPT 23 U/L (13-56); Albumin, Serum 2.6 g/dL (3.2-5.0); Alkaline Phosphatase 121 U/L (45-117); Anion Gap 12 (5-15); BUN 2 mg/dL (7-18); BUN/Creat Ratio 3.3 RATIO (10-20); Calcium,Total 8.3 mg/dL (8.5-10.1); Chloride 104 mmol/L (98-107); EST Glomerular Filtration Rate 108 mL/min (>60); Est Glom Filt Rate - Afr Amer 130 mL/min (>60); Estimated Creatinine Clearance 75.24 ml/min; Globulin 3.5 g/dL (2.2-4.2); Glucose 93 mg/dL (74-106); Potassium 2.8 mmol/L (3.5-5.1); Protein, Total 6.1 g/dL (6.4-8.2); Sodium Level 143 mmol/L (136-145)
[2018-05-21 06:49] LABS: Differential Indicated MANUAL DIFF; POSITIVE COUNT YES; POSITIVE DIFFERENTIAL NO; POSITIVE MORPHOLOGY YES
[2018-05-21 07:06] LABS: Eosinophil 4 % (0-5); Lymphocyte 22 % (19-41); Monocyte 9 % (0-10); Myelocyte 1 (0-0); Neutrophil-Segmented 64 % (47-70); Platelet Estimate ADEQUATE (ADEQ); Red Cell Morphology NORM C+C NORMAL (NORM C&C); Total Cells Counted 100 (MANUAL DIFF)
[2018-05-21 07:07] LABS: Absolute Lymphocyte Count 1.25 X10^3/ul (0.83-4.51); Absolute Neutrophil Count 3.7 X10^3/uL (2.0-7.7); Lymphocyte # 1.25 X10^3/ul (4.0); Neutrophil # 3.65 X10^3/uL (2.7-7.7)
[2018-05-21 07:08] LABS: Atypical Lymphocyte RARE %
--- NOTE | 2018-05-21 07:42 | PCM.PN.SRG ---
Patient Problems: Active and Suspected Problems Cholecystitis (Acute) Liver abscess (Acute) Subjective: Patient is doing well this morning. She still has some right upper quadrant pain. No nausea or vomiting. - Physical Exam General: Alert, Oriented x3, Cooperative, No apparent distress Neck: No JVD Abdomen: - - Abdomen is soft and mildly tender in the right upper quadrant. Perc drain is bilious. Vital Signs Temp Pulse Resp BP Pulse Ox 97.9 F 85 16 145/78 H 98 05/21/18 03:00 05/21/18 03:00 05/21/18 03:00 05/21/18 03:00 05/21/18 03:00 Oxygen Flow Rate (L/min) [6] 2 Oxygen Flow Rate (L/min) 2 Oxygen Delivery Method [6] Nasal Cannula Oxygen Delivery Method [5] Room Air Oxygen Delivery Method [4] Room Air Oxygen Delivery Method [3] Room Air Oxygen Delivery Method [2] Room Air Oxygen Delivery Method [1 ( Room Air Initial Baseline)] Oxygen Delivery Method Room Air Weight: 210 lb 12.191 oz Body Mass Index (BMI) 39.8 Intake and Output for Last 24 Hours 05/19/18 05/20/18 05/21/18 23:59 23:59 23:59 Intake Total 1342 / 1342 1426 / 1426 Output Total 590 / 590 800 / 800 Balance 752 / 752 626 / 626 Microbiology Past 72 Hours 05/20/18 12:47 Gram Stain - Final Fluid - Gallbladder Laboratory Tests Past 24 Hrs 05/20/18 05/20/18 05/20/18 07:45 07:45 07:45 WBC 5.5 RBC 3.92 L Hgb 11.2 L Hct 34.3 L MCV 87.5 MCH 28.6 MCHC 32.7 RDW 14.2 RDW Differential 44.5 H Plt Count 453 H MPV 8.7 Immature Gran % (Auto) 2.900 H Neut % (Auto) 54.1 Lymph % (Auto) 23.7 Travis % (Auto) 13.3 H Eos % (Auto) 3.8 Baso % (Auto) 2.2 H Absolute Neuts (auto) 3.0 Absolute Lymphs (auto) 1.30 Total Counted Not Reportable Neutrophils % (Manual) Lymphocytes % (Manual) Monocytes % (Manual) Eosinophils % (Manual) Myelocytes % Diff Path Review May foll Atypical Lymphocytes Platelet Estimate RBC Morphology PT INR APTT Sodium 140 Potassium 2.8 L Chloride 103 Carbon Dioxide 30.0 Anion Gap 7 BUN 4 L Creatinine 0.67 Estim Creat Clear Calc 67.38 Est GFR (MDRD) Af Amer 115 Est GFR (MDRD) Non-Af 95 BUN/Creatinine Ratio 5.9 L Glucose 85 Calcium 8.4 L Magnesium 2.1 Total Bilirubin 0.40 AST 29 ALT 24 Alkaline Phosphatase 142 H Total Protein 6.7 Albumin 2.9 L Globulin 3.8 Albumin/Globulin Ratio 0.8 L Lipase 05/20/18 05/20/18 05/20/18 07:55 10:12 17:25 WBC RBC Hgb Hct MCV MCH MCHC RDW RDW Differential Plt Count MPV Immature Gran % (Auto) Neut % (Auto) Lymph % (Auto) Travis % (Auto) Eos % (Auto) Baso % (Auto) Absolute Neuts (auto) Absolute Lymphs (auto) Total Counted Neutrophils % (Manual) Lymphocytes % (Manual) Monocytes % (Manual) Eosinophils % (Manual) Myelocytes % Diff Path Review Atypical Lymphocytes Platelet Estimate RBC Morphology PT 13.7 INR 1.1 APTT 34.9 Sodium 139 Potassium 3.0 L Chloride 105 Carbon Dioxide 23.0 Anion Gap 11 BUN 3 L Creatinine 0.60 Estim Creat Clear Calc 75.24 Est GFR (MDRD) Af Amer 131 Est GFR (MDRD) Non-Af 108 BUN/Creatinine Ratio 5.0 L Glucose 85 Calcium 8.2 L Magnesium Total Bilirubin AST ALT Alkaline Phosphatase Total Protein Albumin Globulin Albumin/Globulin Ratio Lipase 109 05/21/18 05/21/18 05:58 05:58 WBC 5.7 RBC 3.92 L Hgb 11.2 L Hct 34.2 L MCV 87.2 MCH 28.6 MCHC 32.7 RDW 14.6 RDW Differential 45.1 H Plt Count 440 MPV 8.6 Immature Gran % (Auto) Neut % (Auto) Not Reportable Lymph % (Auto) Travis % (Auto) Eos % (Auto) Baso % (Auto) Absolute Neuts (auto) 3.7 Absolute Lymphs (auto) 1.25 Total Counted 100 Neutrophils % (Manual) 64 Lymphocytes % (Manual) 22 Monocytes % (Manual) 9 Eosinophils % (Manual) 4 Myelocytes % 1 H Diff Path Review May foll Atypical Lymphocytes RARE Platelet Estimate ADEQUATE RBC Morphology NORM C+C PT INR APTT Sodium 143 Potassium 2.8 L Chloride 104 Carbon Dioxide 27.0 Anion Gap 12 BUN 2 L Creatinine 0.60 Estim Creat Clear Calc 75.24 Est GFR (MDRD) Af Amer 130 Est GFR (MDRD) Non-Af 108 BUN/Creatinine Ratio 3.3 L Glucose 93 Calcium 8.3 L Magnesium Total Bilirubin 0.30 AST 27 ALT 23 Alkaline Phosphatase 121 H Total Protein 6.1 L Albumin 2.6 L Globulin 3.5 Albumin/Globulin Ratio 0.7 L Lipase Medical Necessity - Tobacco Use Smoking Status: Never smoker Assessment/Plan All Active Problems Cholecystitis (Acute) Liver abscess (Acute) Chest pain (Acute) 62-year-old female with acute cholecystitis 1. Patient had percutaneous cholecystostomy tube placed yesterday. Drainage is bilious. Culture is pending. 2. I will order the patient a clear liquid diet and she may advance as tolerated. 3. The patient will need a repeat CT scan either today or tomorrow to see if the liver collection is an abscess. This may be able to be done as an outpatient. This will need to be done with IV contrast. I am also getting the CD from Viraj Thomas so that we can compare her last CAT scan. If this is an abscess it would likely need an additional drain. If it is gone then is likely contiguous with the gallbladder. 4. Patient will be okay for discharge on oral antibiotics likely this evening and will follow-up with me in 2 weeks to schedule outpatient cholecystectomy. Cornel Gayle MD Pager: [facility] [address] [place] [address], [address] [place] [phone] Office:
[2018-05-21 08:45] LABS: Magnesium 1.8 mg/dL (1.6-2.6)
--- NOTE | 2018-05-21 09:18 | PCA ---
Sent a request to [facility] for catscan cd for patient per doctor sue.
[2018-05-21 09:45] VITALS: BP 161/80; PULSE 99; RESP 17; TEMP 36.8; O2SAT 93
--- NOTE | 2018-05-21 09:49 | NURSING ---
refuses seizure precautions.
[2018-05-21] MEDS: Ciprofloxacin 400 MG/200 ML BAG 200 MG IV (11:05)
[2018-05-21] MEDS: Enoxaparin 40 MG/0.4 ML Syringe SC (11:05)
[2018-05-21] MEDS: lamoTRIgine 150 MG Tablet 300 MG PO (11:06)
[2018-05-21] MEDS: 0.9% NaCl Peripheral Flush Adult/Peds IV ×5 (11:29→19:58)
[2018-05-21] MEDS: LEVOCARNITINE 330 MG TABLET PO ×2 (11:31→17:18)
--- NOTE | 2018-05-21 11:48 | CT_ITS ---
STUDY: CT ABDOMEN AND PELVIS WITH CONTRAST REASON FOR EXAM: Female, 62 years old. Liver lesion abscess versus cyst. Status post tube placement one day ago. RADIATION DOSAGE (If Supplied By Facility): CTDIvol = ( 14.35 ) mGy, DLP = ( 964.85 ) mGycm TECHNIQUE: Transaxial images were obtained from the dome of the diaphragm to the symphysis pubis with oral contrast. 100CC ml of Isovue 300 contrast was administered. Sagittal and coronal images were reconstructed. Individualized dose optimization techniques were used for this CT. COMPARISON: CT-guided drainage tube placement 05/20/2018. CT abdomen and pelvis 05/20/2018. FINDINGS: Body wall soft tissues: Percutaneous pigtail catheter on the right, with pigtail terminating in side of the contracted but inflamed gallbladder. Osseous structures: Scoliosis. Inferior chest: Clear lung bases, normal distal esophagus, no cardiomegaly. Coronary calcifications are present. Hepatobiliary: There is a percutaneous transhepatic pigtail catheter transiting the right inferior liver into the gallbladder fossa within the thick-walled inflamed gallbladder. The gallbladder is contracted, partially decompressed compared to imaging performed yesterday. There is inflammatory stranding in the adjacent fat. There is no significant biliary ductal dilatation. The common duct is unremarkable. Pancreas: Mild atrophy. Spleen: Normal. Adrenal glands: Normal. Urogenital: No acute process. Pelvic floor and sidewalls and retroperitoneum: No mass or adenopathy. Vasculature: Mild atherosclerosis. Normal portal venous and mesenteric venous arborization, iliac veins and IVC. Stomach: No acute process. Small bowel and mesentery: No acute process. Large bowel: Normal appendix. Unremarkable large bowel and rectum. Free fluid or free air: None. CT/Abdomen/Pelvis WITH Contrast IMPRESSION: The pigtail catheter appears to be well positioned within the partially contracted inflamed gallbladder. Electronically Signed: Hood Means, at 15:01 EDT Tel , Service support ,
--- NOTE | 2018-05-21 14:26 | PCM.PN.HOSP ---
Patient Problems: Active and Suspected Problems Cholecystitis (Acute) Liver abscess (Acute) Subjective: Patient was seen and examined. She feels better. Has not had any more diarrhea is after the last visit. denies fever or chills or SOB. Vitals are stable. Objective: Physical exam: General: Alert, Oriented x3, Cooperative, No apparent distress HEENT: Atraumatic, PERRLA, EOMI, Normocephalic Oral: Moist Mucosa Neck: Supple, No JVD, Negative Carotid Bruits Lungs: Clear to auscultation, Normal air movement Cardiovascular: Regular rate, Regular Rhythm, Normal S1, Normal S2, No murmurs Abdomen: Bowel Sounds Present, Soft, Non Tender, Tender - over the right upper quadrant, YVETTE drain in situ draining serosanguinous fluid Extremities: No edema, Capillary Refill Less than 3 Seconds Skin: No rashes Musculoskeletal: No Tenderness to Palpation of Joints or Extremities Lymphatic: No Cervical, Supraclavicular, or Inguinal Adenopathy Neurological: Cranial nerves II-XII grossly intact, Neuro grossly intact Psych/Mental Status: Normal Affect, Appropriate Vitals/I&O's: Vital Signs Temp Pulse Resp BP Pulse Ox 98.3 F 99 17 161/80 H 93 05/21/18 09:45 05/21/18 09:45 05/21/18 09:45 05/21/18 09:45 05/21/18 09:45 Oxygen Flow Rate (L/min) [6] 2 Oxygen Flow Rate (L/min) 2 Oxygen Delivery Method [6] Nasal Cannula Oxygen Delivery Method [5] Room Air Oxygen Delivery Method [4] Room Air Oxygen Delivery Method [3] Room Air Oxygen Delivery Method [2] Room Air Oxygen Delivery Method [1 ( Room Air Initial Baseline)] Oxygen Delivery Method Room Air Weight: 95.6 kg Body Mass Index (BMI) 39.8 Intake and Output for Last 24 Hours 05/19/18 05/20/18 05/21/18 23:59 23:59 23:59 Intake Total 1342 / 1342 2195 / 2195 Output Total 590 / 590 1400 / 1400 Balance 752 / 752 795 / 795 Microbiology Past 72 Hours 05/21/18 10:00 Stool Enteric Bacteriology - Final 05/20/18 12:47 Fluid - Gallbladder Gram Stain - Final 05/20/18 12:47 Fluid - Gallbladder Body Fluid Culture - Preliminary No growth-Final to follow Laboratory Results 05/20/18 17:25: Sodium 139, Potassium 3.0 L, Chloride 105, Carbon Dioxide 23.0, Anion Gap 11, BUN 3 L, Creatinine 0.60, Estim Creat Clear Calc 75.24, Est GFR (MDRD) Af Amer 131, Est GFR (MDRD) Non-Af 108, BUN/Creatinine Ratio 5.0 L, Glucose 85, Calcium 8.2 L 05/21/18 05:58: WBC 5.7, RBC 3.92 L, Hgb 11.2 L, Hct 34.2 L, MCV 87.2, MCH 28.6, MCHC 32.7, RDW 14.6, RDW Differential 45.1 H, Plt Count 440, MPV 8.6, Neut % (Auto) Not Reportable, Absolute Neuts (auto) 3.7, Absolute Lymphs (auto) 1.25, Total Counted 100, Neutrophils % (Manual) 64, Lymphocytes % (Manual) 22, Monocytes % (Manual) 9, Eosinophils % (Manual) 4, Myelocytes % 1 H, Diff Path Review May foll, Atypical Lymphocytes RARE, Platelet Estimate ADEQUATE, RBC Morphology NORM C+C 05/21/18 05:58: Sodium 143, Potassium 2.8 L, Chloride 104, Carbon Dioxide 27.0, Anion Gap 12, BUN 2 L, Creatinine 0.60, Estim Creat Clear Calc 75.24, Est GFR (MDRD) Af Amer 130, Est GFR (MDRD) Non-Af 108, BUN/Creatinine Ratio 3.3 L, Glucose 93, Calcium 8.3 L, Total Bilirubin 0.30, AST 27, ALT 23, Alkaline Phosphatase 121 H, Total Protein 6.1 L, Albumin 2.6 L, Globulin 3.5, Albumin/Globulin Ratio 0.7 L 05/21/18 05:58: Magnesium 1.8 Current Medications Enoxaparin Sodium (Lovenox) 40 mg SC DAILY@1000 [facility]I Last Admin: 05/21/18 11:05 Dose: 40 mg Ciprofloxacin (Cipro) 400 mg in 200 mls @ 200 mls/hr IV Q12 [facility] Last Admin: 05/21/18 11:05 Dose: 200 mls/hr Potassium Chloride/Dextrose/Sod Cl (Kcl 20meq In D5.45ns 1000ml) 1,000 mls @ 100 mls/hr IV .Q10H [facility] Last Admin: 05/21/18 06:20 Dose: 100 mls/hr Metronidazole (Flagyl) 500 mg in 100 mls @ 100 mls/hr IV Q8 [facility] Last Admin: 05/21/18 06:20 Dose: 100 mls/hr Pantoprazole Sodium 40 mg/ (Sodium Chloride) 110 mls @ 330 mls/hr IV Q24 [facility] Last Admin: 05/20/18 15:06 Dose: 330 mls/hr Ibuprofen (Motrin) 600 mg PO Q6H PRN PRN PRN Reason: MILD PAIN (1-3/10) Last Admin: 05/21/18 00:52 Dose: 600 mg Lamotrigine (Lamictal) 300 mg PO BID [facility] Last Admin: 05/21/18 11:06 Dose: 300 mg Levocarnitine (Carnitor) 330 mg PO TIDCM [facility] Last Admin: 05/21/18 11:31 Dose: 330 mg Lorazepam (Ativan) 1 mg IV Q6H PRN PRN PRN Reason: ANXIETY Last Admin: 05/21/18 12:31 Dose: 1 mg Magnesium Hydroxide (Milk Of Magnesia) 30 ml PO DAILY PRN PRN PRN Reason: Constipation Morphine Sulfate () 2 mg IV Q2H PRN PRN PRN Reason: SEVERE PAIN (6-10/10) Last Admin: 05/21/18 11:29 Dose: 2 mg Ondansetron HCl (Zofran) 4 mg IV Q6H PRN PRN PRN Reason: NAUSEA Last Admin: 05/20/18 21:23 Dose: 4 mg Pramipexole Dihydrochloride (Mirapex) 1 mg PO TID [facility] Last Admin: 05/21/18 06:25 Dose: 1 mg Sodium Chloride () 5 - 30 ml IV UD PRN PRN Reason: SALINE FLUSH Last Admin: 05/21/18 12:31 Dose: 20 ml Medical Necessity - Tobacco Use Smoking Status: Never smoker Assessment/Plan All Active Problems Cholecystitis (Acute) Liver abscess (Acute) Chest pain (Acute) 62-year-old female with past medical history of seizure disorder, mitochondrial disease, recently had right carpal tunnel surgery, comes in with complaints of right upper quadrant pain associated with fever. Patient was admitted to telemetry floor with acute cholecystitis with possible intrahepatic abscess. 1. Acute diarrhea, unclear etiology, resolved. Stool for enteric panel is negative. 2. Acute cholecystitis with possible intrahepatic abscess seen on CT of the abdomen, general surgery consulted, appreciate recommendations, status post CT guided cholecystostomy tube, improving, on IV Cipro and Flagyl 3. Hypokalemia, severe, likely secondary to acute diarrhea, potassium is 2.8, will replace, recheck in a.m. 4. Seizure Disorder, continue on Lamictal 5. Mitochondrial disease 6. Anxiety disorder, home medications on hold because of n.p.o. status, will put on as needed Ativan 7. DVT PPx- Lovenox SC Code Visit Inpatient E&M: 11848 Subs Hosp L2
--- NOTE | 2018-05-21 14:30 | PN_ITS ---
Patient Problems: Active and Suspected Problems Cholecystitis (Acute) Liver abscess (Acute) Subjective: Patient was seen and examined. She feels better. Has not had any more diarrhea is after the last visit. denies fever or chills or SOB. Vitals are stable. Objective: Physical exam: General: Alert, Oriented x3, Cooperative, No apparent distress HEENT: Atraumatic, PERRLA, EOMI, Normocephalic Oral: Moist Mucosa Neck: Supple, No JVD, Negative Carotid Bruits Lungs: Clear to auscultation, Normal air movement Cardiovascular: Regular rate, Regular Rhythm, Normal S1, Normal S2, No murmurs Abdomen: Bowel Sounds Present, Soft, Non Tender, Tender - over the right upper quadrant, YVETTE drain in situ draining serosanguinous fluid Extremities: No edema, Capillary Refill Less than 3 Seconds Skin: No rashes Musculoskeletal: No Tenderness to Palpation of Joints or Extremities Lymphatic: No Cervical, Supraclavicular, or Inguinal Adenopathy Neurological: Cranial nerves II-XII grossly intact, Neuro grossly intact Psych/Mental Status: Normal Affect, Appropriate Vitals/I&O's: Vital Signs Temp Pulse Resp BP Pulse Ox 98.3 F 99 17 161/80 H 93 05/21/18 09:45 05/21/18 09:45 05/21/18 09:45 05/21/18 09:45 05/21/18 09:45 Oxygen Flow Rate (L/min) [6] 2 Oxygen Flow Rate (L/min) 2 Oxygen Delivery Method [6] Nasal Cannula Oxygen Delivery Method [5] Room Air Oxygen Delivery Method [4] Room Air Oxygen Delivery Method [3] Room Air Oxygen Delivery Method [2] Room Air Oxygen Delivery Method [1 ( Room Air Initial Baseline)] Oxygen Delivery Method Room Air Weight: 95.6 kg Body Mass Index (BMI) 39.8 Intake and Output for Last 24 Hours 05/19/18 05/20/18 05/21/18 23:59 23:59 23:59 Intake Total 1342 / 1342 2195 / 2195 Output Total 590 / 590 1400 / 1400 Balance 752 / 752 795 / 795 Microbiology Past 72 Hours 05/21/18 10:00 Stool Enteric Bacteriology - Final 05/20/18 12:47 Fluid - Gallbladder Gram Stain - Final 05/20/18 12:47 Fluid - Gallbladder Body Fluid Culture - Preliminary No growth-Final to follow Laboratory Results 05/20/18 17:25: Sodium 139, Potassium 3.0 L, Chloride 105, Carbon Dioxide 23.0, Anion Gap 11, BUN 3 L, Creatinine 0.60, Estim Creat Clear Calc 75.24, Est GFR ( MDRD) Af Amer 131, Est GFR (MDRD) Non-Af 108, BUN/Creatinine Ratio 5.0 L, Glucose 85, Calcium 8.2 L 05/21/18 05:58: WBC 5.7, RBC 3.92 L, Hgb 11.2 L, Hct 34.2 L, MCV 87.2, MCH 28.6 , MCHC 32.7, RDW 14.6, RDW Differential 45.1 H, Plt Count 440, MPV 8.6, Neut % ( Auto) Not Reportable, Absolute Neuts (auto) 3.7, Absolute Lymphs (auto) 1.25, Total Counted 100, Neutrophils % (Manual) 64, Lymphocytes % (Manual) 22, Monocytes % (Manual) 9, Eosinophils % (Manual) 4, Myelocytes % 1 H, Diff Path Review May foll, Atypical Lymphocytes RARE, Platelet Estimate ADEQUATE, RBC Morphology NORM C+C 05/21/18 05:58: Sodium 143, Potassium 2.8 L, Chloride 104, Carbon Dioxide 27.0, Anion Gap 12, BUN 2 L, Creatinine 0.60, Estim Creat Clear Calc 75.24, Est GFR ( MDRD) Af Amer 130, Est GFR (MDRD) Non-Af 108, BUN/Creatinine Ratio 3.3 L, Glucose 93, Calcium 8.3 L, Total Bilirubin 0.30, AST 27, ALT 23, Alkaline Phosphatase 121 H, Total Protein 6.1 L, Albumin 2.6 L, Globulin 3.5, Albumin/ Globulin Ratio 0.7 L 05/21/18 05:58: Magnesium 1.8 Current Medications Enoxaparin Sodium (Lovenox) 40 mg SC DAILY@1000 [facility] Last Admin: 05/21/18 11:05 Dose: 40 mg Ciprofloxacin (Cipro) 400 mg in 200 mls @ 200 mls/hr IV Q12 [facility] Last Admin: 05/21/18 11:05 Dose: 200 mls/hr Potassium Chloride/Dextrose/Sod Cl (Kcl 20meq In D5.45ns 1000ml) 1,000 mls @ 100 mls/hr IV .Q10H [facility] Last Admin: 05/21/18 06:20 Dose: 100 mls/hr Metronidazole (Flagyl) 500 mg in 100 mls @ 100 mls/hr IV Q8 [facility] Last Admin: 05/21/18 06:20 Dose: 100 mls/hr Pantoprazole Sodium 40 mg/ (Sodium Chloride) 110 mls @ 330 mls/hr IV Q24 [facility] Last Admin: 05/20/18 15:06 Dose: 330 mls/hr Ibuprofen (Motrin) 600 mg PO Q6H PRN PRN PRN Reason: MILD PAIN (1-3/10) Last Admin: 05/21/18 00:52 Dose: 600 mg Lamotrigine (Lamictal) 300 mg PO BID [facility] Last Admin: 05/21/18 11:06 Dose: 300 mg Levocarnitine (Carnitor) 330 mg PO TIDCM [facility] Last Admin: 05/21/18 11:31 Dose: 330 mg Lorazepam (Ativan) 1 mg IV Q6H PRN PRN PRN Reason: ANXIETY Last Admin: 05/21/18 12:31 Dose: 1 mg Magnesium Hydroxide (Milk Of Magnesia) 30 ml PO DAILY PRN PRN PRN Reason: Constipation Morphine Sulfate () 2 mg IV Q2H PRN PRN PRN Reason: SEVERE PAIN (6-10/10) Last Admin: 05/21/18 11:29 Dose: 2 mg Ondansetron HCl (Zofran) 4 mg IV Q6H PRN PRN PRN Reason: NAUSEA Last Admin: 05/20/18 21:23 Dose: 4 mg Pramipexole Dihydrochloride (Mirapex) 1 mg PO TID [facility] Last Admin: 05/21/18 06:25 Dose: 1 mg Sodium Chloride () 5 - 30 ml IV UD PRN PRN Reason: SALINE FLUSH Last Admin: 05/21/18 12:31 Dose: 20 ml Medical Necessity - Tobacco Use Smoking Status: Never smoker Assessment/Plan All Active Problems Cholecystitis (Acute) Liver abscess (Acute) Chest pain (Acute) 62-year-old female with past medical history of seizure disorder, mitochondrial disease, recently had right carpal tunnel surgery, comes in with complaints of right upper quadrant pain associated with fever. Patient was admitted to telemetry floor with acute cholecystitis with possible intrahepatic abscess. 1. Acute diarrhea, unclear etiology, resolved. Stool for enteric panel is negative. 2. Acute cholecystitis with possible intrahepatic abscess seen on CT of the abdomen, general surgery consulted, appreciate recommendations, status post CT guided cholecystostomy tube, improving, on IV Cipro and Flagyl 3. Hypokalemia, severe, likely secondary to acute diarrhea, potassium is 2.8, will replace, recheck in a.m. 4. Seizure Disorder, continue on Lamictal 5. Mitochondrial disease 6. Anxiety disorder, home medications on hold because of n.p.o. status, will put on as needed Ativan 7. DVT PPx- Lovenox SC Code Visit Inpatient E&M: 65664 Subs Hosp L2
[2018-05-21 14:50] VITALS: BP 144/78; PULSE 92; RESP 18; TEMP 36.8; O2SAT 95
[2018-05-21 15:16] LABS: Pathologist Review Reviewed
--- NOTE | 2018-05-21 15:26 | PN_ITS ---
Progress Note I ordered a CT scan with contrast for the patient today. The radiologist did not believe that the patient has a liver abscess. This is likely gallbladder versus liver cyst. The patient seems to be doing well. She is only try clear liquids. Clinical Impression(s) from Imaging Studies Abdomen/Pelvis CT 05/21/18 11:48 IMPRESSION: The pigtail catheter appears to be well positioned within the partially contracted inflamed gallbladder. Electronically Signed: Hood Means, at 15:01 EDT Tel , Service support , Plan: 1. The patient is draining bile from her cholecystostomy tube. I have advanced her diet to regular diet. From my standpoint, once she is tolerating a regular diet she may be discharged home on oral antibiotics and follow-up with myself or Dr. Farr in 2 weeks to plan cholecystectomy. Cornel Gayle MD Pager: [facility] [address] [place] [address] [address] [place] [address] Office:
[2018-05-21 15:31] LABS: Pathologist Review Reviewed
--- NOTE | 2018-05-21 15:38 | PN.ORTHO_ITS ---
Patient Problems: Active and Suspected Problems Cholecystitis (Acute) Liver abscess (Acute) Subjective: Patient underwent right carpal tunnel release by Dr. Sanchez De on May 07, 2018. Patient was admitted to the hospital and couldn't make appointment at [facility]. Patient states she continues to have pain and numbness/tingling in the right hand. Pain can reach as high as a 7-8/10. Patient currently has IV in that hand. Objective: Incision healing well without erythema, warmth, wound dehiscence, active drainage or signs of infection. Sensation intact to fingers. Does still complain of N/T in the right hand after surgery. ROM: full extension fingers, 75% composite fist. IV placed on dorsum of hand and limited ROM due to pain. - Physical Exam General: Alert, Oriented x3, Cooperative, No apparent distress Vital Signs Temp Pulse Resp BP Pulse Ox 98.2 F 92 18 144/78 H 95 05/21/18 14:50 05/21/18 14:50 05/21/18 14:50 05/21/18 14:50 05/21/18 14:50 Oxygen Flow Rate (L/min) [6] 2 Oxygen Flow Rate (L/min) 2 Oxygen Delivery Method [6] Nasal Cannula Oxygen Delivery Method [5] Room Air Oxygen Delivery Method [4] Room Air Oxygen Delivery Method [3] Room Air Oxygen Delivery Method [2] Room Air Oxygen Delivery Method [1 ( Room Air Initial Baseline)] Oxygen Delivery Method Room Air Weight: 95.6 kg Body Mass Index (BMI) 39.8 Intake and Output for Last 24 Hours 05/19/18 05/20/18 05/21/18 23:59 23:59 23:59 Intake Total 1342 / 1342 2195 / 2195 Output Total 590 / 590 1470 / 1470 Balance 752 / 752 725 / 725 Microbiology Past 72 Hours 05/21/18 10:00 Enteric Bacteriology - Final Stool 05/20/18 12:47 Gram Stain - Final Fluid - Gallbladder Body Fluid Culture - Preliminary No growth-Final to follow Laboratory Tests Past 24 Hrs 05/20/18 05/20/18 05/21/18 07:45 17:25 05:58 WBC 5.7 RBC 3.92 L Hgb 11.2 L Hct 34.2 L MCV 87.2 MCH 28.6 MCHC 32.7 RDW 14.6 RDW Differential 45.1 H Plt Count 440 MPV 8.6 Neut % (Auto) Not Reportable Absolute Neuts (auto) 3.7 Absolute Lymphs (auto) 1.25 Total Counted 100 Neutrophils % (Manual) 64 Lymphocytes % (Manual) 22 Monocytes % (Manual) 9 Eosinophils % (Manual) 4 Myelocytes % 1 H Diff Path Review Reviewed May foll Atypical Lymphocytes RARE Platelet Estimate ADEQUATE RBC Morphology NORM C+C Sodium 139 Potassium 3.0 L Chloride 105 Carbon Dioxide 23.0 Anion Gap 11 BUN 3 L Creatinine 0.60 Estim Creat Clear Calc 75.24 Est GFR (MDRD) Af Amer 131 Est GFR (MDRD) Non-Af 108 BUN/Creatinine Ratio 5.0 L Glucose 85 Calcium 8.2 L Magnesium Total Bilirubin AST ALT Alkaline Phosphatase Total Protein Albumin Globulin Albumin/Globulin Ratio 05/21/18 05/21/18 05:58 05:58 WBC RBC Hgb Hct MCV MCH MCHC RDW RDW Differential Plt Count MPV Neut % (Auto) Absolute Neuts (auto) Absolute Lymphs (auto) Total Counted Neutrophils % (Manual) Lymphocytes % (Manual) Monocytes % (Manual) Eosinophils % (Manual) Myelocytes % Diff Path Review Atypical Lymphocytes Platelet Estimate RBC Morphology Sodium 143 Potassium 2.8 L Chloride 104 Carbon Dioxide 27.0 Anion Gap 12 BUN 2 L Creatinine 0.60 Estim Creat Clear Calc 75.24 Est GFR (MDRD) Af Amer 130 Est GFR (MDRD) Non-Af 108 BUN/Creatinine Ratio 3.3 L Glucose 93 Calcium 8.3 L Magnesium 1.8 Total Bilirubin 0.30 AST 27 ALT 23 Alkaline Phosphatase 121 H Total Protein 6.1 L Albumin 2.6 L Globulin 3.5 Albumin/Globulin Ratio 0.7 L Medical Necessity - Tobacco Use Smoking Status: Never smoker Assessment/Plan All Active Problems Cholecystitis (Acute) Liver abscess (Acute) Chest pain (Acute) 1. s/p Right CTR on May 07, 2018: today the sutures were removed and patient tolerated procedure well. Sterile bandaid was placed. Patient was encouraged to work on ROM of the right hand/fingers daily. Patient can continue Tylenol and NSAID as needed. Discussed with the patient regarding continued N/T and give it time. Encouraged ROM and patient can shower and get wet but no submerging under water for 4 weeks post-op. Patient will need to schedule follow up with Dr. Sanchez De was discharged from the hospital. Will contact [facility] with any complications.
[2018-05-21 18:23] LABS: Anion Gap 9 (5-15); BUN 1 mg/dL (7-18); BUN/Creat Ratio 1.5 RATIO (10-20); Calcium,Total 8.3 mg/dL (8.5-10.1); Chloride 104 mmol/L (98-107); Creatinine, Serum 0.66 mg/dL (0.55-1.02); EST Glomerular Filtration Rate 97 mL/min (>60); Est Glom Filt Rate - Afr Amer 118 mL/min (>60); Glucose 96 mg/dL (74-106); Sodium Level 141 mmol/L (136-145)
--- NOTE | 2018-05-21 19:15 | DCINST_ITS ---
- Discharge Diagnoses Current Active Problems: Current Active and Chronic Problems Cholecystitis (Acute) Liver abscess (Acute) Reason(s) for Visit for Discharge Instructions: Acute cholecystitis You will use the following diet at home:: Regular Your food should be the consistency of: Regular Your liquids should be the consistency of: Regular/Thin Discharge Activity: Return to Normal Activity Additional Instructions: You are encouraged to complete your antibiotics. Follow the instructions given by Dr. Gayle for care for your YVETTE drain. Keep the drain always below your navel. You should remain active as much as you can. Call your doctor if you develop fever, chills, worsening abdominal pain. You can continue on tylenol and ibuprofen for pain as needed. You will need to have repeat blood work done in 3 days in your primary doctor's office. Follow-up in 1 week with your primary doctor to go over your current admissions. You have been prescribed potassium pills. You may not need to take all of them if your blood potassium level is normal. Allergies/Adverse Reactions: Allergies Sulfa (Sulfonamide Antibiotics) Adverse Reaction (Verified 01/15/17 21:39) Other Z-GUMARO Adverse Reaction (Uncoded 01/15/17 21:39) Other Medications to take at Discharge ALPRAZolam [Xanax] 2 mg PO QHS 01/15/17 Albuterol IH (ProAir) [Proair Hfa] 1 - 2 puff INHALATION Q6H PRN PRN 01/15/17 Cholecalciferol (Vitamin D3) [Vitamin D3] 1,000 unit PO DINNER 01/15/17 Cyanocobalamin (Vitamin B-12) [Vitamin B-12] 1,000 mcg PO DAILY 01/15/17 Duloxetine Hcl [Cymbalta] 30 mg PO BID 01/15/17 Fluticasone 0.05% [Flonase Nasal [place]] 1 spray NASAL DAILY PRN 01/15/17 Gabapentin [Neurontin] 300 mg PO BIDCM 01/15/17 Lamotrigine [Lamictal] 300 mg PO BID 01/15/17 Lansoprazole 30 mg PO DAILY 01/15/17 Levocarnitine Tartrate [l-Carnitine] 330 mg PO TID 01/15/17 Ubidecarenone [Co Q-10] 200 mg PO TID 01/15/17 busPIRone [Buspar] 15 mg PO TID 01/15/17 Acetaminophen [Tylenol Tablet] 650 mg PO Q6H PRN PRN #0 tablet 01/16/17 Aspirin [Aspir-Low] 81 mg PO DAILY 05/20/18 Pramipexole Di-HCl [Mirapex ER] 3 mg PO QHS 05/20/18 Propranolol HCl [Inderal (Beta Brianne)] 10 mg PO TID 05/20/18 Ciprofloxacin [Cipro] 500 mg PO BID #14 tab 05/21/18 Metronidazole [Flagyl] 500 mg PO Q8H #21 tab 05/21/18 Potassium Chloride [Klor-Con M20] 40 meq PO DAILY #14 tab 05/21/18 The following prescriptions were given: Potassium Chloride [Klor-Con M20] 40 meq PO DAILY #14 tab Orders to be completed after discharge: Magnesium Location: Laboratory Primary Care Physician: Stevie Rooney MD [Primary Care Provider] - Please follow up with your Primary Care Physician in: within 1 week Test Results: Test results from this visit will be discussed in further detail at your follow- up appointment, if applicable. Please Follow Up With: Robert Farr MD When: within 2 weeks Proposed Discharge Date: 05/21/18
--- NOTE | 2018-05-21 19:16 | DS.PCM_ITS ---
Discharge Date and Diagnosis Date of Admission: 05/20/18 Date of Discharge: 05/21/18 - Primary Discharge Diagnosis Active and Suspected Problems Cholecystitis (Acute) Suspected Liver abscess (Acute) Hypokalemia Hypomagnesemia - Secondary Discharge Diagnosis Chronic Problems Arthritis (Chronic) seasonal allergies (Chronic) Seizure (Chronic) CC (collagenous colitis) (Chronic) Mitochondrial disease (Chronic) Hospital Course and Treatment Imaging Results: 05/21/18 11:48 CT Abd [Abdomen/Pelvis WITH Contrast] [CT] Urgent General surgery Operations: None Procedures: None Summary of Care Provided: 62-year-old female with past medical history of seizure disorder, mitochondrial disease, recently had right carpal tunnel surgery, comes in with complaints of right upper quadrant pain associated with fever. Patient was admitted to telemetry floor with acute cholecystitis with possible intrahepatic abscess. She also had acute diarrhea. 1. Acute diarrhea, unclear etiology, resolved soon into hospital stay. Stool for enteric panel was negative. 2. Acute cholecystitis with possible intrahepatic abscess seen on CT of the abdomen, general surgery consulted, underwent status post CT guided cholecystostomy tube with improvement in pain. Managed on IV cipro and flagyl. Repeat CT scan of abdomen was negative for intraabdominal abscess. Discharged home with YVETTE drain, oral cipro and flagyl. Dressing changes per IR. Follow-up with general surgery. 3. Hypokalemia, hypomagnesemia, replaced. 4. Seizure Disorder,on Lamictal 5. Mitochondrial disease 6. Anxiety disorder, on home Xanax regimen. Discharge Diet: Low fat/ Low Cholesterol, 2000 mg Sodium Diet Discharge Activity: Return to Normal Activity Home Medications: Medications to take at Discharge ALPRAZolam [Xanax] 2 mg PO QHS 01/15/17 Albuterol IH (ProAir) [Proair Hfa] 1 - 2 puff INHALATION Q6H PRN PRN 01/15/17 Cholecalciferol (Vitamin D3) [Vitamin D3] 1,000 unit PO DINNER 01/15/17 Cyanocobalamin (Vitamin B-12) [Vitamin B-12] 1,000 mcg PO DAILY 01/15/17 Duloxetine Hcl [Cymbalta] 30 mg PO BID 01/15/17 Fluticasone 0.05% [Flonase Nasal [place]] 1 spray NASAL DAILY PRN 01/15/17 Gabapentin [Neurontin] 300 mg PO BIDCM 01/15/17 Lamotrigine [Lamictal] 300 mg PO BID 01/15/17 Lansoprazole 30 mg PO DAILY 01/15/17 Levocarnitine Tartrate [l-Carnitine] 330 mg PO TID 01/15/17 Ubidecarenone [Co Q-10] 200 mg PO TID 01/15/17 busPIRone [Buspar] 15 mg PO TID 01/15/17 Acetaminophen [Tylenol Tablet] 650 mg PO Q6H PRN PRN #0 tablet 01/16/17 Aspirin [Aspir-Low] 81 mg PO DAILY 05/20/18 Pramipexole Di-HCl [Mirapex ER] 3 mg PO QHS 05/20/18 Propranolol HCl [Inderal (Beta Brianne)] 10 mg PO TID 05/20/18 Ciprofloxacin [Cipro] 500 mg PO BID #14 tab 05/21/18 Metronidazole [Flagyl] 500 mg PO Q8H #21 tab 05/21/18 Potassium Chloride [Klor-Con M20] 40 meq PO DAILY #14 tab 05/21/18 Following Prescrptions Were Given to Patient: Metronidazole [Flagyl] 500 mg PO Q8H #21 tab Potassium Chloride [Klor-Con M20] 40 meq PO DAILY #14 tab Ciprofloxacin [Cipro] 500 mg PO BID #14 tab Other Amb Orders: Magnesium Location: Laboratory Primary Care Physician: Stevie Rooney MD [Primary Care Provider] - Please follow up with your Primary Care Physician in: within 1 week Please Follow Up With: Robert Farr MD When: within 2 weeks Disposition: Home Minutes spent on discharge:: 45 Patient Condition:: Stable Medical Necessity - Tobacco Use Smoking Status: Never smoker Meaningful Use Info Meaningful Use Diagnoses (Choose all that apply): None applicable Code Visit Inpatient E&M: 51105 Disch Hosp
[2018-05-21 20:31] VITALS: BP 140/76; PULSE 90; RESP 18; TEMP 36.7; O2SAT 99
== END 2018-05-21 20:25 | disposition home or self-care (01) | DRG 410 ==
LOC: ED 02:10 → MS3 04:30
PROVIDERS: Radiology Diagnostic Radiology; Surgery; Admitting Provider Family Medicine; Emergency Provider Emergency Medicine; Family Provider Family Medicine; PCP Family Medicine; Visit Provider Internal Medicine
DX: K81.0 Acute cholecystitis (principal); E87.6 Hypokalemia; E83.42 Hypomagnesemia; R19.7 Diarrhea, unspecified; F41.9 Anxiety disorder, unspecified; G40.909 Epilepsy, unspecified, not intractable, without status epilepticus; E66.9 Obesity, unspecified; Z68.39 Body mass index [BMI] 39.0-39.9, adult; M19.90 Unspecified osteoarthritis, unspecified site; J30.2 Other seasonal allergic rhinitis; Z98.890 Other specified postprocedural states; Z86.73 Personal history of transient ischemic attack (TIA), and cerebral infarction without residual deficits; Z79.51 Long term (current) use of inhaled steroids; Z79.82 Long term (current) use of aspirin; Z79.899 Other long term (current) drug therapy
CPT/HCPCS: 20501; 36415; 74176; 74177; 77012; 80048; 80053; 80076; 83605; 83690; 83735; 85025; 85610; 85730; 87070; 87075; 87205; 87506; 99156; 99157; 99282; J7030; J7040; Q9967; A4216; J0744; J2405

== ENCOUNTER → 2018-05-26 09:04 | Outpatient (CLI) | payer OTHER, BC, SELFPAY ==
[2018-05-26 10:48] LABS: Anion Gap 9 (5-15); BUN 13 mg/dL (7-18); BUN/Creat Ratio 14.7 RATIO (10-20); Chloride 106 mmol/L (98-107); Creatinine, Serum 0.88 mg/dL (0.55-1.02); EST Glomerular Filtration Rate 69 mL/min (>60); Est Glom Filt Rate - Afr Amer 84 mL/min (>60); Glucose 85 mg/dL (74-106); Magnesium 2.2 mg/dL (1.6-2.6); Potassium 4.1 mmol/L (3.5-5.1); Sodium Level 144 mmol/L (136-145)
== END ==
PROVIDERS: Family Provider Family Medicine; PCP Family Medicine; Visit Provider Internal Medicine
DX: E87.6 Hypokalemia (principal)
CPT/HCPCS: 36415; 80048; 83735

== ENCOUNTER 2018-06-04 01:01 | Observation (INO) | payer OTHER, BC, SELFPAY ==
[2018-06-04] VITALS (10 sets, daily range): BP systolic 104–142; BP diastolic 63–90; PULSE 76–97; RESP 12–22; TEMP 36.4–37.1; O2SAT 95–98; BMI 37.5; BMI 37.4
--- NOTE | 2018-06-04 01:29 | CT_ITS ---
STUDY: CT ABDOMEN AND PELVIS WITH CONTRAST REASON FOR EXAM: Female, 62 years old. Back and abdominal pain. YVETTE drain in gallbladder. RADIATION DOSAGE (If Supplied By Facility): CTDIvol = ( 18.44 ) mGy, DLP = ( 1813.51 ) mGycm TECHNIQUE: Transaxial images were obtained from the dome of the diaphragm to the symphysis pubis without oral contrast. 100ML ml of Isovue 370 contrast was administered. Sagittal and coronal images were reconstructed. Individualized dose optimization techniques were used for this CT. COMPARISON: May 21, 2018. FINDINGS: The visualized lung bases are unremarkable. The visualized portions of the heart are within normal limits. Normal liver. Right percutaneous transhepatic catheter with the pigtail in the gallbladder fundus. The gallbladder is contracted. Mild soft tissue stranding adjacent to the gallbladder fossa, decreased. Normal spleen. Normal pancreas. Normal bilateral adrenal glands. Normal right kidney. Normal left kidney. Normal visualized stomach. Normal small intestine. Normal colon. The appendix is well visualized axial image 79 and appears normal. Normal abdominal aorta. Normal inferior vena cava. Normal retroperitoneum. No intra-abdominal free air. Normal urinary bladder. Uterus grossly normal. Postoperative changes of bilateral tubal ligation. No adnexal masses seen. Normal abdominal wall. Normal osseous structures. CT/Abdomen/Pelvis WITH Contrast IMPRESSION: No acute findings in the abdomen or pelvis. No abdominal aortic dissection. Collapsed gallbladder with drainage catheter in the gallbladder fundus. Minimal inflammatory changes decreased since the prior study. Electronically Signed: Buster Read MD at 3:39 EDT , Service support ,
--- NOTE | 2018-06-04 01:30 | CT_ITS ---
STUDY: CTA CHEST REASON FOR EXAM: Female, 62 years old. Back and abdominal pain. YVETTE drain in gallbladder. RADIATION DOSAGE (If Supplied By Facility): CTDIvol = ( 18.44 ) mGy, DLP = ( 1813.51 ) mGycm TECHNIQUE: The examination was performed with the intravenous administration of 100ML ml of Isovue 370 contrast material. Post-processing of the angiographic images was performed, with multiplanar reformation and 3D reconstruction. Individualized dose optimization techniques were used for this CT. COMPARISON: Chest x-ray January 15, 2017. FINDINGS: Normal enhancement of the main pulmonary artery and right and left pulmonary arteries. Normal enhancement of the bilateral peripheral pulmonary arteries. There is no demonstrated pulmonary embolism. Normal thoracic aorta and visualized great vessels. There is no demonstrated aortic dissection. The heart is not enlarged. Coronary artery calcifications. No pericardial effusion. Normal mediastinum. Normal hilar regions. Normal visualized trachea and bronchi. The lungs are well expanded. No pneumothorax. Normal pulmonary parenchyma. Normal pleura. Normal chest wall structures. Normal osseous structures. On the bending press operator view abdominal catheter entering from the right, terminating in the region of the gallbladder fossa by history. CT/CTA Chest W/WO Contrast IMPRESSION: No acute findings in the chest. No pulmonary embolism or arterial dissection. Coronary artery calcifications. Electronically Signed: Buster Read MD at 3:30 EDT , Service support ,
--- NOTE | 2018-06-04 01:31 | ED.VISSUMM ---
- ER Visit Summary Date of Service: 06/04/18 Chief Complaint: Chest pain and back pain History of Present Illness: The patient is a 62 F presenting with chest pain and back pain. She states this started around 11 PM. She complains of chest heaviness/tightness and diffuse back pain and tightness. She complains of abdominal tightness. She had a cholecystostomy tube placed May 20. She was seen by Dr. Gayle yesterday for follow up. She is scheduled for cholecystectomy on June 26. She was doing well at the time of her office visit yesterday. She denies fever. She states she felt sweaty with shortness of breath. Denies vomiting. Denies other complaints. Physical Examination: Vitals are stable. Patient is afebrile. Alert no acute distress. HEENT exam is unremarkable. Neck is supple. Lungs are clear and equal bilaterally. Heart is regular rate and rhythm. Abdomen is soft nontender nondistended. Drain in place Back: Diffuse tenderness Extremities are unremarkable. Skin is warm and dry. No focal neurologic deficit. Remainder of exam is unremarkable. Emergency Department Course and Treatment: Patient given morphine, Zofran IV. CBC, chemistries unremarkable. Liver lipase are normal. Urinalysis unremarkable. Troponin is negative. CTA chest shows no evidence of PE or dissection, CT abdomen and pelvis shows no acute process. Patient states her abdominal pain is better than it has been. She has a history of hyperlipidemia, family history of early heart disease. Will discuss with the hospitalist for observation for her chest pain. Disposition: Observation Impression: Chest pain This note was generated with [employer] dictation software. It may contain incorrect words, spelling, and punctuation that were not noted in review of the chart prior to signing ED Disposition - Plan for ED Patient: Chief Complaint: Abd Pain Referrals: Stevie Rooney MD [Primary Care Provider] -
[2018-06-04] MEDS: Ondansetron 4 MG/2 ML Vial IV (01:57)
[2018-06-04] MEDS: Morphine 4 MG/ML Syringe IV (01:57)
[2018-06-04 01:58] LABS: Bacteria 0 SEEN /hpf (None Seen); Mucous, Urine 0 SEEN /hpf (<or=2+); Red Blood Cells-Urine 0 SEEN /hpf (0-5); White Blood Cells 0 SEEN /hpf (0-5)
[2018-06-04 02:01] LABS: Color, Urine Straw (Yellow); Glucose, Dipstick Normal (Normal); Ketone-Dipstick Negative (Negative); Leukocyte Esterase-Dipstick Negative /ul (Negative); Nitrite-Dipstick Negative (Negative); Occult Blood-Urine Negative /ul (Negative); Protein-Dipstick 15 mg/dl (Negative); Urine Bilirubin Dipstick Negative (Negative); Urine Clarity Clear (Clear); Urine Urobilinogen Normal (Normal)
[2018-06-04 02:04] LABS: Absolute Lymphocyte Count 1.87 X10^3/ul (0.83-4.51); Absolute Neutrophil Count 1.4 X10^3/uL (2.0-7.7); Basophil# 0.12 X10^3/uL; Basophil% 3.1 % (0-1); Eosinophil# 0.16 X10^3/uL; Eosinophils% 4.1 % (0-5); Hematocrit 40.1 % (37-47); Lymphocyte # 1.87 X10^3/ul (4.0); Lymphocyte % 47.6 % (19-41); Mean Corp Hgb Conc 32.4 g/gl (32-36); Mean Corpuscular Hgb 28.5 pg (27.0-32.0); Mean Corpuscular Volume 87.9 fL (81-99); Mean Platelet Vol. 8.9 fl (6.2-12.0); Monocyte# 0.39 X10^3/uL; Monocyte% 9.9 % (0-10); Neutrophil # 1.38 X10^3/uL (2.7-7.7); POSITIVE COUNT NO; POSITIVE DIFFERENTIAL NO; POSITIVE MORPHOLOGY NO; Platelet Count 378 K/mm3 (150-450); RBC Distribution Width CV 14.4 % (11.6-14.6); RBC Distribution Width SD 46.5 fl (35.1-43.9); Red Blood Count 4.56 M/mm3 (4.2-5.4); White Blood Count 3.9 K/mm3 (4.4-11.0)
[2018-06-04 02:07] LABS: Squamous Epithelial Cells - UA 0-5 SEEN /hpf (5-10)
[2018-06-04 02:20] LABS: ALB/GLOB Ratio 1.1 RATIO (0.9-2.4); AST(SGOT) 23 U/L (15-37); Alanine Aminotransfer ALT/SGPT 18 U/L (13-56); Albumin, Serum 3.9 g/dL (3.2-5.0); Alkaline Phosphatase 111 U/L (45-117); Anion Gap 8 (5-15); BUN 12 mg/dL (7-18); BUN/Creat Ratio 12.3 RATIO (10-20); Chloride 105 mmol/L (98-107); Creatinine, Serum 0.98 mg/dL (0.55-1.02); EST Glomerular Filtration Rate 62 mL/min (>60); Est Glom Filt Rate - Afr Amer 75 mL/min (>60); Estimated Creatinine Clearance 46.07 ml/min; Globulin 3.7 g/dL (2.2-4.2); Glucose 91 mg/dL (74-106); Lipase 240 U/L (73-393); Potassium 4.3 mmol/L (3.5-5.1); Protein, Total 7.6 g/dL (6.4-8.2); Sodium Level 138 mmol/L (136-145)
--- NOTE | 2018-06-04 04:19 | PCM.HP.STD ---
Problem List (1) Chest pain Status: Acute (2) Anxiety with depression Status: Chronic (3) Seizure Status: Chronic (4) Cholecystitis Status: Chronic History of Present Illness Date of Admission: 06/04/18 Chief Complaint: chest Pain The patient is a 62 year old F with a significant history of TIA, seizure disorder, anxiety depression and allergies who presented today because of chest pain x1 day. Patient reported that her pain started from her back and it radiated to her chest. The pain is located below her left breast. She describes her pain as a tightness that prevented her from breathing. Her pain started while she was walking inside her home. She appeared clammy. At emergency department CT of the abdomen was done that was unremarkable. On 01-16-2017 she had a stress test done and that was unremarkable. Past Medical History Past Medical History (Chronic Problems): Chronic Problems (Last Updated 06/03/18 @ 13:17 by Cinthya Weeks) Anxiety with depression (Chronic) Cholecystitis (Chronic) Arthritis (Chronic) seasonal allergies (Chronic) Seizure (Chronic) CC (collagenous colitis) (Chronic) Mitochondrial disease (Chronic) Medical History: Medical History (Last Updated 06/03/18 @ 13:17 by Cinthya Weeks) Cholecystitis (Chronic) K81.9 Liver abscess (Inactive) K75.0 Arthritis (Chronic) M19.90 seasonal allergies (Chronic) Seizure (Chronic) R56.9 Chest pain (Acute) R07.9 CC (collagenous colitis) (Chronic) K52.831 Mitochondrial disease (Chronic) E88.40 Allergies Sulfa (Sulfonamide Antibiotics) Adverse Reaction (Verified 06/03/18 13:23) Other Z-GUMARO Adverse Reaction (Uncoded 01/15/17 21:39) Other Home Medications: Ambulatory Orders Medication Instructions Recorded ALPRAZolam [Xanax] 2 mg PO QHS 01/15/17 Albuterol IH (ProAir) [Proair Hfa] 1 - 2 puff INHALATION Q6H PRN PRN 01/15/17 Cholecalciferol (Vitamin D3) 1,000 unit PO DINNER 01/15/17 [Vitamin D3] Cyanocobalamin (Vitamin B-12) 1,000 mcg PO DAILY 01/15/17 [Vitamin B-12] Duloxetine Hcl [Cymbalta] 30 mg PO BID 01/15/17 Fluticasone 0.05% [Flonase Nasal 1 spray NASAL DAILY PRN 01/15/17 [place]] Gabapentin [Neurontin] 300 mg PO BIDCM 01/15/17 Lamotrigine [Lamictal] 300 mg PO BID 01/15/17 Levocarnitine Tartrate 330 mg PO TID 01/15/17 [l-Carnitine] Ubidecarenone [Co Q-10] 200 mg PO TID 01/15/17 busPIRone [Buspar] 15 mg PO TID 01/15/17 Acetaminophen [Tylenol Tablet] 650 mg PO Q6H PRN PRN #0 tab 01/16/17 Aspirin [Aspir-Low] 81 mg PO DAILY 05/20/18 Pramipexole Di-HCl [Mirapex ER] 3 mg PO QHS 05/20/18 Propranolol HCl [Inderal (Beta 10 mg PO TID 05/20/18 Brianne)] Nitrofurantoin Macrocrystal 50 mg PO PRN PRN 06/04/18 [Nitrofurantoin] Surgical History: Surgical History (Last Updated 06/03/18 @ 13:18 by Cinthya Weeks) H/O tubal ligation Z98.51 History of carpal tunnel release Z98.890 Surgical History: - - tubal Smoking Status: Never smoker - *Family History Maternal Family History: Family History (Last Updated 06/03/18 @ 13:18 by Cinthya Weeks) Mother Diabetes Father Heart disease History Items: - - lung disease and kidney disease Paternal Family History: Family History (Last Updated 06/03/18 @ 13:18 by Cinthya Weeks) Mother Diabetes Father Heart disease History Items: - - father with mi 15 years ago, had bypass surgery Review of Systems Constitutional: Reports: - - clammy HEENT: Denies: Head Aches, Sinus Congestion, Sinus Drainage Cardiovascular: Reports: Chest Pain Respiratory: Reports: Shortness of Breath Gastrointestinal: Denies: Abdominal Pain, Nausea, Vomiting Genitourinary: Denies: Dysuria Musculoskeletal: Reports: Back Pain Skin: Denies: Rash, Wounds Neurological: Denies: Numbness, Tingling, Focal weakness Psychiatric: Reports: Anxiety, Depression Hematologic/ Lymphatic: Denies: Easy Bruising, Easy Bleeding VTE Information - Inpt Only VTE Present on Admission: No VTE Mechan Device Prophylaxis: None VTE Pharm Prophylaxis ordered?: Yes - Physical Exam General: Alert, Oriented x3, Cooperative HEENT: Atraumatic, PERRLA, EOMI, Normocephalic Neck: Supple, No JVD, Negative Carotid Bruits Lungs: Clear to auscultation, Normal air movement Cardiovascular: Regular rate, No murmurs, - - Mild tenderness below left breast. Mild tenderness at mid back. Abdomen: Bowel Sounds Present, - - YVETTE drain from right upper abdomen. Extremities: No edema, Capillary Refill Less than 3 Seconds Skin: No rashes, No breakdown Musculoskeletal: No Tenderness to Palpation of Joints or Extremities Neurological: Cranial nerves II-XII grossly intact Psych/Mental Status: Normal Affect, Appropriate Vital Signs Temp Pulse Resp BP Pulse Ox 98.2 F 76 12 111/63 98 06/04/18 01:02 06/04/18 03:25 06/04/18 03:25 06/04/18 03:25 06/04/18 03:25 Oxygen Delivery Method Room Air Weight: 90.2 kg Body Mass Index (BMI) 37.5 Laboratory Tests Past 24 Hrs 06/04/18 06/04/18 06/04/18 01:55 01:55 01:55 WBC 3.9 L RBC 4.56 Hgb 13.0 Hct 40.1 MCV 87.9 MCH 28.5 MCHC 32.4 RDW 14.4 RDW Differential 46.5 H Plt Count 378 MPV 8.9 Immature Gran % (Auto) 0.300 Neut % (Auto) 35.0 L Lymph % (Auto) 47.6 H [place] % (Auto) 9.9 Eos % (Auto) 4.1 Baso % (Auto) 3.1 H Absolute Neuts (auto) 1.4 L Absolute Lymphs (auto) 1.87 Total Counted Not Reportable Sodium 138 Potassium 4.3 Chloride 105 Carbon Dioxide 25.0 Anion Gap 8 BUN 12 Creatinine 0.98 Estim Creat Clear Calc 46.07 Est GFR (MDRD) Af Amer 75 Est GFR (MDRD) Non-Af 62 BUN/Creatinine Ratio 12.3 Glucose 91 Calcium 9.0 Total Bilirubin 0.60 AST 23 ALT 18 Alkaline Phosphatase 111 Troponin I < 0.015 Total Protein 7.6 Albumin 3.9 Globulin 3.7 Albumin/Globulin Ratio 1.1 Lipase 240 Urine Color Straw Urine Clarity Clear Urine pH 6.0 Ur Specific [place] 1.010 Urine Protein 15 H Urine Glucose (UA) Normal Urine Ketones Negative Urine Occult Blood Negative Urine Nitrite Negative Urine Bilirubin Negative Urine Urobilinogen Normal Ur Leukocyte Esterase Negative Urine RBC 0 SEEN Urine WBC 0 SEEN Ur Squamous Epith Cells 0-5 SEEN Urine Bacteria 0 SEEN Urine Mucus 0 SEEN Assessment/Plan All Active Problems (Last Updated 06/03/18 @ 13:17 by Cinthya Weeks) Chest pain (Acute) The patient is a 62 year old F with a significant history of TIA, seizure disorder, anxiety depression and allergies who presented today because of chest pain x1 day. Her chest pain may be due to anxiety. However because of a history of hyperlipidemia and family history of heart disease will do a cardiac workup. Chest Pain Admit to a monitored bed on PCU Aspirin 325?1. ASA 81 mg p.o. daily Serial cardiac enzymes Stat EKG as needed for chest pain Stress test in the AM Cholecystitis YVETTE drain in place. Patient reports that her gallbladder will be taken out on 06-26-2018 Seizure Continue Lamictal. Nerve pain Continue gabapentin Anxiety and depression continue BuSpar and Cymbalta DVT prophylaxis Subcutaneous heparin Code Visit OBSV E&M: 10307 Initial observation care L3
--- NOTE | 2018-06-04 05:22 | NURSING ---
Called ED spray drier operatorFaith HOFFMAN at this time to confirm Pt okay to come to PCU.
[2018-06-04 06:36] LABS: Prothrombin Time (Protime)PT. 13.6 SECONDS (11.7-14.9)
[2018-06-04 06:37] LABS: Partial Thromboplast Time 31.9 Seconds (24.1-36.2)
[2018-06-04 06:40] LABS: Absolute Lymphocyte Count 2.02 X10^3/ul (0.83-4.51); Absolute Neutrophil Count 1.1 X10^3/uL (2.0-7.7); Anion Gap 7 (5-15); BUN 11 mg/dL (7-18); BUN/Creat Ratio 11.7 RATIO (10-20); Basophil% 2.7 % (0-1); Calcium,Total 8.8 mg/dL (8.5-10.1); Chloride 108 mmol/L (98-107); Creatinine, Serum 0.94 mg/dL (0.55-1.02); EST Glomerular Filtration Rate 65 mL/min (>60); Eosinophil# 0.15 X10^3/uL; Eosinophils% 4.1 % (0-5); Est Glom Filt Rate - Afr Amer 78 mL/min (>60); Estimated Creatinine Clearance 48.03 ml/min; Glucose 90 mg/dL (74-106); Hematocrit 38.6 % (37-47); Hemoglobin 12.2 g/dl (12.0-15.0); Lymphocyte # 2.02 X10^3/ul (4.0); Lymphocyte % 54.7 % (19-41); Mean Corp Hgb Conc 31.6 g/gl (32-36); Mean Corpuscular Hgb 28.2 pg (27.0-32.0); Mean Corpuscular Volume 89.1 fL (81-99); Mean Platelet Vol. 8.6 fl (6.2-12.0); Monocyte% 8.1 % (0-10); Neutrophil # 1.12 X10^3/uL (2.7-7.7); Neutrophil % 30.4 % (47-70); POSITIVE COUNT NO; POSITIVE DIFFERENTIAL NO; POSITIVE MORPHOLOGY NO; Platelet Count 342 K/mm3 (150-450); Potassium 4.4 mmol/L (3.5-5.1); RBC Distribution Width CV 14.4 % (11.6-14.6); RBC Distribution Width SD 47.3 fl (35.1-43.9); Red Blood Count 4.33 M/mm3 (4.2-5.4); Sodium Level 143 mmol/L (136-145); Thyroid Stim Hormone (TSH) 4.47 uIU/mL (0.358-3.74); White Blood Count 3.7 K/mm3 (4.4-11.0)
[2018-06-04] MEDS: Pramipexole Di-HCl 1 MG Tablet PO (07:00)
[2018-06-04] MEDS: busPIRone 15 MG TABLET PO (07:00)
[2018-06-04] MEDS: Aspirin 81 MG TAB.CHEW 324 MG PO (07:00)
[2018-06-04] MEDS: Gabapentin 300 MG Capsule PO (11:15)
[2018-06-04] MEDS: DULoxetine Hcl 30 MG Capsule PO (11:15)
[2018-06-04] MEDS: lamoTRIgine 150 MG Tablet 300 MG PO (11:16)
--- NOTE | 2018-06-04 13:49 | STRESSREP_ITS ---
Stress Test Report Date: 06/04/2018 Procedure: Pharmacologic stress nuclear imaging study Indications: Chest pain Consent: Per the patient Procedure: The patient underwent pharmacologic (Regadenoson) evaluation with a peak heart rate of 114 beats per minute (71 predicted maximal heart rate) and a peak blood pressure of 142/70 mmHg. The baseline ECG demonstrated normal sinus rhythm. The peak pharmacologic ECG demonstrated no obvious ECG changes. There were no cardiac dysrhythmias pretest, during pharmacologic infusion, or recovery. There was no complaint of chest discomfort during pharmacologic infusion or recovery. The examination was discontinued secondary to completion of protocol. Impression: 1. Pharmacologic (Regadenoson) evaluation 2. Peak pharmacologic ECG with no obvious ECG changes. 3. There were no cardiac dysrhythmias pretest, during pharmacologic infusion, or recovery 4. Nuclear images pending Myocardial perfusion imaging study: Technique: The patient was injected with 11.9 millicuries of technetium 99m Cardiolite and subsequently rest SPECT Cardiolite nuclear imaging was obtained in the horizontal long, vertical long, and short axis views. The patient underwent pharmacologic (Regadenoson) evaluation with a peak heart rate of 114 beats per minute (71 % percent predicted maximal heart rate) and a peak blood pressure of 42/70 mmHg. The patient was injected with 35.7 millicuries of technetium 99m Cardiolite and subsequently stress SPECT Cardiolite nuclear imaging was obtained in the horizontal long, vertical long, and short axis views. A gated Cardiolite study at peak stress was obtained. Interpretation: Rest and stress SPECT Cardiolite nuclear imaging status post realignment, normalization, and attenuation correction demonstrate relative uniform tracer uptake and myocardial perfusion appearing within normal limits. There is end systolic thickening and brightening. The gated Cardiolite study demonstrates myocardial thickening and inward wall motion. The reported LVEF is 87 %. Impression: 1. Rest and stress SPECT Cardiolite nuclear imaging demonstrate relative uniform tracer uptake and myocardial perfusion appearing within normal limits. 2. The gated Cardiolite study reports an LVEF of 87 %. This note was generated with [employer] software. It may contain incorrect words, spelling, and punctuation that were not noted in checking the note before signing.
--- NOTE | 2018-06-04 14:31 | DCINST_ITS ---
- Discharge Diagnoses Current Active Problems: Current Active and Chronic Problems (Last Updated 06/03/18 @ 13:17 by Cinthya Weeks) Anxiety with depression (Chronic) You will use the following diet at home:: No restrictions Your food should be the consistency of: Regular Discharge Activity: Return to Normal Activity Weight Bearing Status: Full weight bearing Allergies/Adverse Reactions: Allergies Sulfa (Sulfonamide Antibiotics) Adverse Reaction (Verified 06/03/18 13:23) Other Z-GUMARO Adverse Reaction (Uncoded 01/15/17 21:39) Other Medications to take at Discharge ALPRAZolam [Xanax] 2 mg PO QHS 01/15/17 Albuterol IH (ProAir) [Proair Hfa] 1 - 2 puff INHALATION Q6H PRN PRN 01/15/17 Cholecalciferol (Vitamin D3) [Vitamin D3] 1,000 unit PO DINNER 01/15/17 Cyanocobalamin (Vitamin B-12) [Vitamin B-12] 1,000 mcg PO DAILY 01/15/17 Duloxetine Hcl [Cymbalta] 30 mg PO DAILY 01/15/17 Fluticasone 0.05% [Flonase Nasal [place]] 1 spray NASAL DAILY PRN 01/15/17 Gabapentin [Neurontin] 300 mg PO BIDCM 01/15/17 Lamotrigine [Lamictal] 300 mg PO BID 01/15/17 Levocarnitine Tartrate [l-Carnitine] 330 mg PO TID 01/15/17 Ubidecarenone [Co Q-10] 200 mg PO TID 01/15/17 busPIRone [Buspar] 15 mg PO TID 01/15/17 Acetaminophen [Tylenol Tablet] 650 mg PO Q6H PRN PRN #0 tab 01/16/17 Aspirin [Aspir-Low] 81 mg PO DAILY 05/20/18 Pramipexole Di-HCl [Mirapex ER] 3 mg PO QHS 05/20/18 Propranolol HCl [Inderal (Beta Brianne)] 10 mg PO TID 05/20/18 Cyclobenzaprine [Flexeril] 10 mg PO TID PRN PRN #30 tab 06/04/18 Nitrofurantoin Macrocrystal [Nitrofurantoin] 50 mg PO PRN PRN 06/04/18 The following prescriptions were given: Cyclobenzaprine [Flexeril] 10 mg PO TID PRN PRN #30 tab PRN Reason: Spasms Primary Care Physician: Stevie Rooney MD [Primary Care Provider] - Please follow up with your Primary Care Physician in: in 1-2 weeks Test Results: Test results from this visit will be discussed in further detail at your follow- up appointment, if applicable.
--- NOTE | 2018-06-06 08:41 | PCM.DC.SUM ---
Discharge Date and Diagnosis Date of Admission: 06/04/18 Date of Discharge: 06/04/18 - Primary Discharge Diagnosis #1 musculoskeletal chest pain #2 seizure disorder - Secondary Discharge Diagnosis Chronic Problems (Last Updated 06/03/18 @ 13:17 by Cinthya Weeks) Anxiety with depression (Chronic) Cholecystitis (Chronic) Arthritis (Chronic) seasonal allergies (Chronic) Seizure (Chronic) CC (collagenous colitis) (Chronic) Mitochondrial disease (Chronic) Hospital Course and Treatment Operations: None Procedures: Nuclear stress test Summary of Care Provided: The patient is a 62 year old F who was seen in the emergency room at [facility] with chief complaint of chest and back pain. Workup in the emergency room included labs which were unremarkable including troponin. CT of the chest showed no evidence of PE or dissection, CT the abdomen and pelvis was done and it showed no acute process. Patient was placed and observation status on PCU, cardiac enzymes were cycled and these remained normal. Patient underwent a nuclear stress test on 06/04/18 which was negative for reversible ischemia. Patient was seen and examined on 06/04/18 and felt to be stable for discharge home Discharge Activity: Return to Normal Activity Weight Bearing Status: Full weight bearing Home Medications: Medications to take at Discharge ALPRAZolam [Xanax] 2 mg PO QHS 01/15/17 Albuterol IH (ProAir) [Proair Hfa] 1 - 2 puff INHALATION Q6H PRN PRN 01/15/17 Cholecalciferol (Vitamin D3) [Vitamin D3] 1,000 unit PO DINNER 01/15/17 Cyanocobalamin (Vitamin B-12) [Vitamin B-12] 1,000 mcg PO DAILY 01/15/17 Duloxetine Hcl [Cymbalta] 30 mg PO DAILY 01/15/17 Fluticasone 0.05% [Flonase Nasal [place]] 1 spray NASAL DAILY PRN 01/15/17 Gabapentin [Neurontin] 300 mg PO BIDCM 01/15/17 Lamotrigine [Lamictal] 300 mg PO BID 01/15/17 Levocarnitine Tartrate [l-Carnitine] 330 mg PO TID 01/15/17 Ubidecarenone [Co Q-10] 200 mg PO TID 01/15/17 busPIRone [Buspar] 15 mg PO TID 01/15/17 Acetaminophen [Tylenol Tablet] 650 mg PO Q6H PRN PRN #0 tab 01/16/17 Aspirin [Aspir-Low] 81 mg PO DAILY 05/20/18 Pramipexole Di-HCl [Mirapex ER] 3 mg PO QHS 05/20/18 Propranolol HCl [Inderal (Beta Brianne)] 10 mg PO TID 05/20/18 Cyclobenzaprine [Flexeril] 10 mg PO TID PRN PRN #30 tab 06/04/18 Nitrofurantoin Macrocrystal [Nitrofurantoin] 50 mg PO PRN PRN 06/04/18 Following Prescrptions Were Given to Patient: Cyclobenzaprine [Flexeril] 10 mg PO TID PRN PRN #30 tab PRN Reason: Spasms Primary Care Physician: Stevie Rooney MD [Primary Care Provider] - Please follow up with your Primary Care Physician in: in 1-2 weeks Disposition: Home Minutes spent on discharge:: 27 Patient Condition:: Stable Medical Necessity - Tobacco Use Smoking Status: Never smoker Meaningful Use Info Meaningful Use Diagnoses (Choose all that apply): None applicable Code Visit OBSV E&M: 97078 Observation care discharge
== END 2018-06-04 14:49 | disposition home or self-care (01) ==
LOC: ED 01:30 → PCU 05:17
PROVIDERS: Admitting Provider Hospitalist; Emergency Provider Emergency Medicine; Family Provider Family Medicine; PCP Family Medicine; Visit Provider Internal Medicine
DX: R07.89 Other chest pain (principal); M54.9 Dorsalgia, unspecified; R06.02 Shortness of breath; E78.5 Hyperlipidemia, unspecified; Z82.49 Family history of ischemic heart disease and other diseases of the circulatory system; F41.8 Other specified anxiety disorders; Z79.899 Other long term (current) drug therapy; Z79.82 Long term (current) use of aspirin; Z86.73 Personal history of transient ischemic attack (TIA), and cerebral infarction without residual deficits; M19.90 Unspecified osteoarthritis, unspecified site; E88.40 Mitochondrial metabolism disorder, unspecified; G40.909 Epilepsy, unspecified, not intractable, without status epilepticus
CPT/HCPCS: 36415; 71275; 74177; 78452; 80048; 80053; 81001; 83690; 84443; 84484; 85025; 85610; 85730; 93005; 93017; 96374; 96375; 99218; 99283; A9500; J7030; Q9967; A4216; G0378; J2405; J2785

== ENCOUNTER → 2018-06-09 11:26 | Outpatient (CLI) | payer OTHER, BC, SELFPAY | PROVIDERS: Family Provider Family Medicine; PCP Family Medicine; Visit Provider Internal Medicine | DX: K81.0 Acute cholecystitis (principal); Z90.49 Acquired absence of other specified parts of digestive tract; Z48.01 Encounter for change or removal of surgical wound dressing ==

== ENCOUNTER 2018-06-26 06:22 | Day surgery (SDC) | payer OTHER, BC, SELFPAY ==
[2018-06-26] VITALS (7 sets, daily range): BP systolic 103–128; BP diastolic 64–74; PULSE 68–81; RESP 14–18; TEMP 36.1–37.1; O2SAT 93–97; BMI 36.8
--- NOTE | 2018-06-26 08:00 | GALL_PTH ---
PATIENT: ALICJA EISENBERG LOC: [facility] [place] U#:[id number] AGE/SX: 62/F ROOM: RE06/26/[address]: Dr. Cornel Gayle MD : 1955 BED: DIS: 06/26/2018 SPEC #: [id number] RECD: 06/26/18 09:24 STATUS: ANDREW VICTORIA #: [id number] KRISTIAN: 06/26/18 08:[address]: Cornel Gayle DEPT: SURGICAL PATHOLOGY RECD BY: Marquise Devine ENTERED: 06/26/18 10:06 SP TYPE: LY DUBOSE DR: Dr. Stevie Rooney MD Tissues: Gallbladder, NOS Procedures: Surgery Specimen Level III HEADER OPERATION: Laparoscopic cholecystectomy with IOC PRE-OP DIAGNOSIS: Cholecystitis TISSUE SUBMITTED: Gallbladder MICROSCOPIC DIAGNOSIS Gallbladder, cholecystectomy: Chronic cholecystitis and cholelithiasis. Benign pericystic lymph node AM:sondra 06/27/18 MICROSCOPIC DESCRIPTION Slides are reviewed. GROSS DESCRIPTION Received is one container labeled with the patient's name and designated gallbladder. The specimen consists of a gallbladder measuring 6.5 x 2.5 x 2.3 cm. The external surface is smooth and glistening. Focally, it is granular, hemorrhagic and contains cautery artifact. The lumen of the gallbladder contains a small amount of mucoid bile and multiple mulberry-shaped, chalky-yellow calculi ranging in size from <0.5 to 0.6 cm. The mucosa is bile-stained and without any mass lesions. The gallbladder wall averages 0.4 cm in thickness and is free of mass lesions. Transit Police Officer sections of the gallbladder and the cystic duct are submitted in one cassette. / AM:sondra 06/26/18 TC:3 CPT: 47898
[2018-06-26] MEDS: Bupiv/Epi 0.5% Mpf 30 ML Vial (09:20)
--- NOTE | 2018-06-26 09:20 | PCM.OPRPT ---
Problem List (1) Cholecystitis Status: Chronic Report of Operation Date of Procedure: 06/26/18 Pre-Operative Diagnosis: History of acute cholecystitis with presence of cholecystostomy tube Post-Operative Diagnosis: Same Surgery/Procedure Performed:: Laparoscopic cholecystectomy with removal of cholecystostomy tube and intraoperative cholangiogram Specimen's removed: Gallbladder and contents Description of Procedure: After obtaining informed consent patient was brought back to the operating room. General anesthesia was induced. The abdomen was prepped and draped in usual sterile fashion. A small midline incision was made superior to the umbilicus and deepened to the level of fascia. The fascia was elevated and incised. Next the peritoneum was elevated and incised in the same fashion. Finger sweep was performed and the Castellanos trocar was placed into the abdomen. The balloon was inflated. The abdomen was inflated to 15 mmHg. Next a camera was introduced into the abdomen and the abdomen was inspected. Next under direct visualization three 5-mm ports were placed one subxiphoid and 2 subcostal. Next the gallbladder was elevated and retracted toward the right shoulder. There were adhesions to the omentum which were bluntly taken down. The cholecystostomy tube was then cut at the skin level and removed from the gallbladder and discarded. The peritoneum was stripped from the gallbladder. The infundibulum was located and retracted laterally. Next the triangle of Calot was dissected and the cystic duct and cystic artery were identified. Cholangiograms were performed. The Camacho catheter was used to clamp across the infundibulum and the needle was inserted into the gallbladder. Under fluoroscopy contrast was instilled into the gallbladder and the common duct, cystic duct as well as proximal hepatic ducts were identified. 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 There was good filling of the duodenum. There were no filling defects noted in the common bile duct. The clamp was removed as well as the needle and the infundibulum was grasped once more. Three hemolock clips were placed across the cystic duct. The cystic duct was then divided leaving 2 clips on the stump. The cystic artery was clipped and divided in the same fashion. The hook cautery was then used to take the gallbladder off of the gallbladder bed. There was a hole in the gallbladder from retraction which did leak some gallstones and bile. This was suctioned up and the stones removed. Hemostasis was obtained. Gallbladder fossa was irrigated and no active bleeding or bile leakage was noted. Next the camera switched to a 5 mm camera and introduced in the subxiphoid port. An Endopouch bag was placed through the umbilical port and the gallbladder was placed into it. The gallbladder was then removed through the umbilical incision. The camera was then reinserted through the umbilical port. The gallbladder fossa was inspected once more and noted to be hemostatic with no leaking bile. The abdomen was suctioned dry the 5 mm ports were removed under direct visualization. The umbilical port was then removed and the air was removed from the abdomen. Next using an 0 Vicryl suture the umbilical fascia was closed in a [id number] fashion. The umbilical port site was irrigated local anesthetic was administered to all the incisions. All the incisions were closed subcuticular 4-0 Monocryl sutures followed by Steri-Strips and dressings. The patient was awoken and taken to PACU in stable condition. - Admit VTE Documentation VTE Mechan Device Prophylaxis: SCD's
--- NOTE | 2018-06-26 09:24 | PCM.DC.GB ---
Discharge Diet: Light diet - advance as tolerated Discharge Activity: Return to Normal Activity, May Not Drive - for 2-3 days or while taking narcotic pain medicataions., - - Do not drive, work heavy equipment or sign legal documents for 24 hours. May shower in (days): 1 - with the bandage in place. Additional Activity Instructions:: Pain medication may cause nausea. You should typically eat light foods as you take your pain medications. Pain medication may also cause constipation. If this is a problem for you, please discuss with your doctor. Call your doctor if your incision/area has: Continuous Slow Oozing, Sudden Increased Bleeding, Increased Pain/ Swelling, Increased Redness, Foul Smelling Discharge, Fever of 101 or Higher Call your doctor if you observe: Fever of 101 or Higher Suture Line Care: Avoid Pulling/Pushing, Avoid Pinching/Bending Additional Dressing/Incision Instructions:: Leave operative bandaids on for 2 days. When you remove dressing, leave Steri-Strips on until your follow-up appointment, or until the Steri-Strips fall off on their own. Allergies/Adverse Reactions: Allergies Sulfa (Sulfonamide Antibiotics) Adverse Reaction (Verified 06/03/18 13:23) Other Z-GUMARO Adverse Reaction (Uncoded 01/15/17 21:39) Other Medications to take at Discharge ALPRAZolam [Xanax] 2 mg PO QHS 01/15/17 Albuterol IH (ProAir) [Proair Hfa] 1 - 2 puff INHALATION Q6H PRN PRN 01/15/17 Cholecalciferol (Vitamin D3) [Vitamin D3] 1,000 unit PO DINNER 01/15/17 Cyanocobalamin (Vitamin B-12) [Vitamin B-12] 1,000 mcg PO DAILY 01/15/17 Duloxetine Hcl [Cymbalta] 30 mg PO DAILY 01/15/17 Fluticasone 0.05% [Flonase Nasal [place]] 1 spray NASAL DAILY PRN 01/15/17 Gabapentin [Neurontin] 300 mg PO TID 01/15/17 Lamotrigine [Lamictal] 300 mg PO BID 01/15/17 Levocarnitine Tartrate [l-Carnitine] 330 mg PO TID 01/15/17 Ubidecarenone [Co Q-10] 200 mg PO TID 03/21/17 busPIRone [Buspar] 15 mg PO TID 01/15/17 Acetaminophen [Tylenol Tablet] 650 mg PO Q6H PRN PRN #0 tab 01/16/17 Aspirin [Aspir-Low] 81 mg PO DAILY 05/20/18 Pramipexole Di-HCl [Mirapex ER] 3 mg PO QHS 05/20/18 Propranolol HCl [Inderal (Beta Brianne)] 10 mg PO TID 05/20/18 Cyclobenzaprine [Flexeril] 10 mg PO TID PRN PRN #30 tab 06/04/18 Nitrofurantoin Macrocrystal [Nitrofurantoin] 50 mg PO PRN PRN 06/04/18 Ibuprofen 800 mg PO PRN PRN 06/19/18 Lansoprazole [Prevacid] 30 mg PO DAILY 06/19/18 Oxycodone HCl/Acetaminophen [Percocet 5/325] 1 - 2 tablet PO Q4H PRN PRN 7 Days #40 tablet 06/26/18 The following prescriptions were given: Oxycodone HCl/Acetaminophen [Percocet 5/325] 1 - 2 tablet PO Q4H PRN PRN 7 Days #40 tablet PRN Reason: Pain Primary Care Physician: Stevie Rooney MD [Primary Care Provider] - Test Results: Test results from this visit will be discussed in further detail at your follow-up appointment, if applicable. Please Follow Up With: Cornel Gayle MD When: Please call to schedule 2 week follow up appointment. [phone]
== END 2018-06-26 12:03 | disposition home or self-care (01) ==
LOC: SDC 06:22 → AC 06:24
PROVIDERS: Family Provider Family Medicine; PCP Family Medicine; Visit Provider Surgery
PROC: (CPT 47610; principal; 2018-06-26 07:40)
DX: K80.10 Calculus of gallbladder with chronic cholecystitis without obstruction (principal); J30.2 Other seasonal allergic rhinitis; R56.9 Unspecified convulsions; E88.40 Mitochondrial metabolism disorder, unspecified; K21.9 Gastro-esophageal reflux disease without esophagitis; E78.00 Pure hypercholesterolemia, unspecified; F41.9 Anxiety disorder, unspecified; F32.9 Major depressive disorder, single episode, unspecified; J44.9 Chronic obstructive pulmonary disease, unspecified; M46.90 Unspecified inflammatory spondylopathy, site unspecified; Z79.51 Long term (current) use of inhaled steroids; Z79.899 Other long term (current) drug therapy; Z79.82 Long term (current) use of aspirin
CPT/HCPCS: 47563; 74300; 76000; 88304; 93005; J7120; J2405

== ENCOUNTER → 2018-08-07 09:10 | Outpatient (CLI) | payer OTHER, BC, SELFPAY ==
[2018-08-07 09:40] LABS: Hematocrit 38.6 % (37-47); Mean Corp Hgb Conc 31.1 g/gl (32-36); Mean Corpuscular Hgb 28.2 pg (27.0-32.0); Mean Corpuscular Volume 90.8 fL (81-99); Mean Platelet Vol. 8.4 fl (6.2-12.0); Platelet Count 314 K/mm3 (150-450); RBC Distribution Width SD 46.6 fl (35.1-43.9); Red Blood Count 4.25 M/mm3 (4.2-5.4); White Blood Count 4.6 K/mm3 (4.4-11.0)
[2018-08-07 09:43] LABS: Scan Indicated on CBC? Y/N NO
[2018-08-07 10:09] LABS: Anion Gap 7 (5-15); BUN 25 mg/dL (7-18); BUN/Creat Ratio 25.5 RATIO (10-20); Chloride 107 mmol/L (98-107); Creatinine, Serum 0.98 mg/dL (0.55-1.02); EST Glomerular Filtration Rate 62 mL/min (>60); Est Glom Filt Rate - Afr Amer 74 mL/min (>60); Glucose 93 mg/dL (74-106); Potassium 4.2 mmol/L (3.5-5.1); Sodium Level 142 mmol/L (136-145)
== END ==
PROVIDERS: Family Provider Family Medicine; PCP Family Medicine; Referring Provider Orthopaedic Surgery; Visit Provider Orthopaedic Surgery
DX: Z01.818 Encounter for other preprocedural examination (principal)
CPT/HCPCS: 36415; 80048; 85027

== ENCOUNTER → 2018-08-13 09:21 | Outpatient (CLI) | payer OTHER, BC, SELFPAY ==
[2018-08-13 11:17] LABS: ALB/GLOB Ratio 1.1 RATIO (0.9-2.4); AST(SGOT) 12 U/L (15-37); Alanine Aminotransfer ALT/SGPT 19 U/L (13-56); Albumin, Serum 3.8 g/dL (3.2-5.0); Alkaline Phosphatase 89 U/L (45-117); Anion Gap 7 (5-15); BUN 21 mg/dL (7-18); BUN/Creat Ratio 20.6 RATIO (10-20); Calcium,Total 9.2 mg/dL (8.5-10.1); Chloride 105 mmol/L (98-107); Cholesterol 203 mg/dL (200); Creatinine, Serum 1.02 mg/dL (0.55-1.02); EST Glomerular Filtration Rate 59 mL/min (>60); Est Glom Filt Rate - Afr Amer 71 mL/min (>60); Globulin 3.4 g/dL (2.2-4.2); Glucose 85 mg/dL (74-106); High Density Lipoprotein 63 mg/dL; Potassium 4.2 mmol/L (3.5-5.1); Protein, Total 7.2 g/dL (6.4-8.2); Sodium Level 140 mmol/L (136-145); Thyroid Stim Hormone (TSH) 4.06 uIU/mL (0.358-3.74); Triglycerides 148 mg/dL; Very Low Density Lipoprotein 30 mg/dL (5-40)
== END ==
PROVIDERS: Family Provider Family Medicine; PCP Family Medicine
DX: E78.1 Pure hyperglyceridemia (principal); E66.01 Morbid (severe) obesity due to excess calories
CPT/HCPCS: 36415; 80053; 80061; 84443

== ENCOUNTER → 2018-11-06 08:43 | Outpatient (CLI) | payer OTHER, BC, SELFPAY ==
--- NOTE | 2018-11-06 08:47 | BI_ITS ---
MAMMOGRAPHY - BILATERAL DIAGNOSTIC REASON FOR EXAM: Female, 62 years old. Right breast lump since October 24, 2018. PERTINENT HISTORY: Non-contributory. TECHNIQUE: Digital bilateral breast sofie (3D mammographic acquisition) in the CC and MLO projections. 2-D mediolateral oblique (MLO) and craniocaudad (CC) views of both breasts were obtained. CAD: Full Field Digital Mammography with Computer Added Detection was performed. COMPARISON: Comparison is made with prior mammogram dated November 19, 2017 and October 08, 2016. FINDINGS: Breast Composition: There are scattered areas of fibroglandular density. There are no dominant masses or suspicious calcifications. Stable benign-appearing bilateral axillary lymph nodes. No other significant abnormalities are identified. There has been no significant change since the prior study. BI/DIAG MAMM W/CAD, BILAT IMPRESSION: Stable bilateral diagnostic mammogram. With the patient's history of a palpable abnormality in the right breast, correlation with ultrasound is recommended. ASSESSMENT CATEGORY: BIRADS Category 0: Incomplete. Need additional imaging evaluation. A letter regarding these results will be sent to the patient by the facility within 30 days. Approximately 10% of breast cancers are not detected by mammography. A normal mammogram should not delay biopsy of a clinically suspicious abnormality. Electronically Signed: Dandre Garay MD at 9:59 EST Tel [phone], Service support ,
--- NOTE | 2018-11-06 08:48 | US_ITS ---
STUDY: ULTRASOUND BREAST - RIGHT REASON FOR EXAM: Female, 62 years old. Palpable lump in the right breast. TECHNIQUE: Axial and longitudinal images of the RIGHT breast were performed with a high resolution ultrasound transducer. COMPARISON: Comparison is made with prior mammogram done earlier today. FINDINGS: RIGHT Breast: The inferior aspect of the right breast was examined by ultrasound. There is a homogeneous fibroglandular tissue. No solid or cystic mass lesion is seen. US/Breast Limited Unilateral IMPRESSION: Unremarkable sonographic examination of the inferior aspect of the right breast. ASSESSMENT CATEGORY: BIRADS Category 1: Negative. A letter regarding these results will be sent to the patient by the facility within 30 days. Electronically Signed: Dandre Garay MD at 10:00 EST Tel [phone], Service support ,
== END ==
PROVIDERS: Family Provider Family Medicine; PCP Family Medicine; Referring Provider Obstetrics & Gynecology; Visit Provider Obstetrics & Gynecology
DX: N63.13 Unspecified lump in the right breast, lower outer quadrant (principal)
CPT/HCPCS: 76642; 77062; 77066; G0279

== ENCOUNTER → 2019-01-05 10:43 | Outpatient (CLI) | payer OTHER, BC, SELFPAY ==
[2019-01-05 13:40] LABS: T4 Free Direct 0.99 ng/dL (0.76-1.46); Thyroid Stim Hormone (TSH) 3.26 uIU/mL (0.358-3.74)
== END ==
PROVIDERS: Family Provider Family Medicine; PCP Family Medicine; Visit Provider Family Medicine
DX: E03.9 Hypothyroidism, unspecified (principal); F41.8 Other specified anxiety disorders
CPT/HCPCS: 36415; 84439; 84443

== ENCOUNTER → 2019-03-26 | Outpatient (CLI) | payer OTHER, BC, SELFPAY ==
[2018-06-26 06:41] VITALS: BMI 36.8
[2019-03-26 09:57] LABS: Absolute Lymphocyte Count 1.74 X10^3/ul (0.83-4.51); Absolute Neutrophil Count 2.2 X10^3/uL (2.0-7.7); Basophil# 0.08 X10^3/uL; Basophil% 1.7 % (0-1); Eosinophil# 0.25 X10^3/uL; Eosinophils% 5.3 % (0-5); Hemoglobin 12.5 g/dl (12.0-15.0); Lymphocyte # 1.74 X10^3/ul (4.0); Lymphocyte % 37.1 % (19-41); Mean Corp Hgb Conc 32.1 g/gl (32-36); Mean Corpuscular Hgb 28.4 pg (27.0-32.0); Mean Corpuscular Volume 88.6 fL (81-99); Mean Platelet Vol. 8.6 fl (6.2-12.0); Monocyte# 0.45 X10^3/uL; Monocyte% 9.6 % (0-10); Neutrophil # 2.15 X10^3/uL (2.7-7.7); Neutrophil % 45.9 % (47-70); Platelet Count 345 K/mm3 (150-450); RBC Distribution Width CV 14.1 % (11.6-14.6); RBC Distribution Width SD 46.2 fl (35.1-43.9); White Blood Count 4.7 K/mm3 (4.4-11.0)
[2019-03-26 09:59] LABS: POSITIVE COUNT NO; POSITIVE DIFFERENTIAL NO; POSITIVE MORPHOLOGY NO
[2019-03-26 10:21] LABS: Vitamin B12 895 pg/mL (211-911)
[2019-03-26 10:59] LABS: AST(SGOT) 15 U/L (15-37); Alanine Aminotransfer ALT/SGPT 26 U/L (13-56); Albumin, Serum 3.7 g/dL (3.2-5.0); Alkaline Phosphatase 59 U/L (45-117); Globulin 3.3 g/dL (2.2-4.2); T3 Uptake 33 % (30-39); T4 Total, Thyroxin 8.3 ug/dL (4.8-13.9); T7 / Free Thyroxin Index 2.7 (1.4-4.5); Thyroid Stim Hormone (TSH) 3.01 uIU/mL (0.358-3.74)
== END | disposition home or self-care (01) ==
LOC: LAB 09:27
PROVIDERS: Family Provider Family Medicine; PCP Family Medicine; Referring Provider Psychiatry & Neurology Neurology; Visit Provider Psychiatry & Neurology Neurology
DX: H50.34 Intermittent alternating exotropia (principal); R41.0 Disorientation, unspecified; R53.83 Other fatigue
CPT/HCPCS: 36415; 80076; 82140; 82607; 82746; 84436; 84443; 84479; 84481; 85025

== ENCOUNTER → 2019-07-07 | Outpatient (CLI) | payer OTHER, BC, SELFPAY ==
[2019-07-07 09:33] LABS: Vitamin B12 709 pg/mL (211-911)
[2019-07-07 09:39] LABS: Ferritin 23 ng/mL (8-252); Iron 60 ug/dL (50-170); Iron Binding Capacity,Total 457 ug/dL (250-450); PERCENT IRON SATURATION 13.1 % (15.0-55.0); T3 Uptake 33 % (30-39); T4 Free Direct 0.96 ng/dL (0.76-1.46); T4 Total, Thyroxin 9.1 ug/dL (4.8-13.9); Thyroid Stim Hormone (TSH) 3.51 uIU/mL (0.358-3.74)
== END | disposition home or self-care (01) ==
PROVIDERS: Family Provider Family Medicine; PCP Family Medicine; Referring Provider Psychiatry & Neurology Neurology; Visit Provider Psychiatry & Neurology Neurology
DX: E72.20 Disorder of urea cycle metabolism, unspecified (principal); G25.81 Restless legs syndrome; R41.0 Disorientation, unspecified
CPT/HCPCS: 36415; 82140; 82607; 82728; 82746; 83540; 83550; 84436; 84439; 84443; 84479

== ENCOUNTER 2019-08-04 06:53 | Day surgery (SDC) | payer OTHER, BC, SELFPAY ==
--- NOTE | 2019-07-17 01:44 | HP_ITS ---
Intake Vital Signs 07/17/19 Body Mass Index (BMI) 36.8 07/17/19 Height 5 ft 1 in 07/17/19 Weight: 207 lb 07/17/19 Body Mass Index (BMI) 39.1 07/17/19 Blood Pressure 111/79 07/17/19 Blood Pressure Location Rt brachial 07/17/19 Respiratory Rate 18 Intake Visit Reasons: C-Scope Consult/Anemia Chief Complaint: Chest Pain/Tightness Manufacturing Executive Required: No Is patient in pain?: No Allergies celecoxib [From Celebrex] Allergy (Mild, Verified 07/17/19 13:21) Unknown Sulfa (Sulfonamide Antibiotics) Adverse Reaction (Verified 07/17/19 13:21) Other Z-GUMARO Adverse Reaction (Uncoded 01/15/17 21:39) Other Medications ALPRAZolam [Xanax] 2 mg PO QHS 01/15/17 [History Confirmed 07/17/19] Albuterol IH (ProAir) [Proair Hfa] 1 - 2 puff INHALATION Q6H PRN PRN 01/15/17 [History Confirmed 07/17/19] Cholecalciferol (Vitamin D3) [Vitamin D3] 1,000 unit PO DINNER 01/15/17 [History Confirmed 07/17/19] Cyanocobalamin (Vitamin B-12) [Vitamin B-12] 1,000 mcg PO DAILY 01/15/17 [History Confirmed 07/17/19] Duloxetine Hcl [Cymbalta] 30 mg PO DAILY 01/15/17 [History Confirmed 07/17/19] Fluticasone 0.05% [Flonase Nasal [place]] 1 spray NASAL DAILY PRN 01/15/17 [History Confirmed 07/17/19] Gabapentin [Neurontin] 300 mg PO TID 01/15/17 [History Confirmed 07/17/19] Lamotrigine [Lamictal] 300 mg PO BID 01/15/17 [History Confirmed 07/17/19] Levocarnitine Tartrate [l-Carnitine] 330 mg PO TID 01/15/17 [History Confirmed 07/17/19] Ubidecarenone [Co Q-10] 200 mg PO TID 01/15/17 [History Confirmed 07/17/19] busPIRone [Buspar] 15 mg PO TID 01/15/17 [History Confirmed 07/17/19] Acetaminophen [Tylenol Tablet] 650 mg PO Q6H PRN PRN #0 tab 01/16/17 [Rx Confirmed 07/17/19] Aspirin [Aspir-Low] 81 mg PO DAILY 05/20/18 [History Confirmed 07/17/19] Pramipexole Di-HCl [Mirapex ER] 3 mg PO QHS 05/20/18 [History Confirmed 07/17/19] Nitrofurantoin Macrocrystal [Nitrofurantoin] 50 mg PO PRN PRN 06/04/18 [History Confirmed 07/17/19] Ibuprofen 800 mg PO PRN PRN 06/19/18 [History Confirmed 07/17/19] ascorbic acid (vitamin C) 1,000 mg tablet 1 g PO Q6H 07/17/19 [History Confirmed 07/17/19] ferrous sulfate 325 mg (65 mg iron) tablet,delayed release 325 mg PO DAILY 07/17/19 [History Confirmed 07/17/19] furosemide 20 mg tablet 20 mg PO .prn tab 07/17/19 [History Confirmed 07/17/19] propranolol 10 mg tablet 30 mg PO .qd tab 07/17/19 [History Confirmed 07/17/19] sumatriptan 25 mg tablet 25 mg PO ONCE 07/17/19 [History Confirmed 07/17/19] PFSH Medical History Cholecystitis (Chronic) Liver abscess (Inactive) Arthritis (Chronic) seasonal allergies (Chronic) Seizure (Chronic) Chest pain (Acute) CC (collagenous colitis) (Chronic) Mitochondrial disease (Chronic) Surgical History H/O tubal ligation (Acute) History of carpal tunnel release (Acute) S/P laparoscopic cholecystectomy (Acute ~06/26/18) Family History Mother Diabetes Father Heart disease Social History (Updated 07/17/19 @ 13:44 by Cornel Gayle MD) Smoking Status: Never smoker alcohol intake: never substance use type: does not use HPI HPI HPI: ALIJCA EISENBERG, is a 63 F who presents to the office today for HPI HPI Surgical H&P: Yes HPI: ALICJA ESIENBERG, is a 63 F who presents to the office today for iron deficiency anemia. Patient denies any blood in her stool or abdominal pain. She denies any family history of colon cancer. Her last colonoscopy was one year ago but it was incomplete due to poor prep. ROS General General: Yes weight change and fatigue Musc Musculoskeletal: Yes back problems and arthritis Cardio Cardiovascular: No murmur, pacemaker, heart disease, atrial fibrillation, high blood pressure, heart attack, heart stent, palpitations, shortness of breat with exertion or chest pain Psych Psychiatric: Yes depression and anxiety Resp Respiratory: Yes shortness of breath, No sleep apnea, No cough, No COPD, No asthma, No emphysema, No wheezing Gastro Gastrointestinal: No abdominal pain, No nausea or vomiting, No diarrhea, Yes constipation, No blood in stool, Yes acid reflux, Yes hemorrhoids, No ulcers, No gallbladder problem, No black,tarry stools Abdiel Hematologic: No blood thinners Exam Const General: cooperative Orientation: alert, oriented x3 Resp Effort & Inspection: normal respiratory effort Auscultation: clear to auscultation bilaterally Cardio Rate: regular rate Rhythm: regular rhythm Heart Sounds: no murmurs GI Inspection: non-distended Palpation: soft, nontender Assessment & Plan Problems 1. Iron deficiency anemia, unspecified iron deficiency anemia type D50.9 Plan Patient has iron deficiency anemia and I recommend upper and lower endoscopy. Patient had failed endoscopy in the past due to poor prep. I will perform a 2- day bowel prep to ensure colon cleansing. I explained endoscopy in detail to the patient. I explained the risks including but not limited to stroke or heart attack with anesthesia, perforation of the GI tract, bleeding, infection. I explained that any of these could necessitate further emergency surgery. The patient understands and all questions were answered sufficiently. The patient wishes to proceed with procedure. Cornel Gayle MD Pager: [facility] [address] [place] [address], [address] [place] [address] Office: Orders Orders: Colonoscopy Today D50.9 EGD Today D50.9 Coding Level of Care Code Off vis,est,level 3 Diagnoses Iron deficiency anemia, unspecified iron deficiency anemia type D50.9 ??Iron deficiency anemia type: unspecified iron deficiency 07/17/19 1344 <Electronically signed by Cornel waters MD> Date _ Cornel Gayle MD I have re-examined the patient. There are no clinical changes since date of exam.
[2019-07-17 13:27] VITALS: BMI 36.8
[2019-08-04] VITALS (7 sets, daily range): BP systolic 123–149; BP diastolic 70–87; PULSE 84–89; RESP 16; TEMP 36.1–36.4; O2SAT 100; BMI 39.8
[2019-08-04] MEDS: Lactated Ringers 1,000 ML 100 ML IV (07:40)
--- NOTE | 2019-08-04 08:27 | OP.ENDO_ITS ---
08/04/2019 Stevie Rooney Re : Upper GI endoscopy procedure for Elsa Bobby Dear Toribio This procedure was performed on Sunday, August 04, 2019. My impressions and recommendations are as follows: Impressions : - Gastritis. - The examination was otherwise normal. - No specimens collected. Recommendations : - Discharge patient to home. - Resume previous diet. - Use Prilosec (omeprazole) 20 mg PO daily. - Continue present medications. My findings are described in the full procedure note, which is enclosed. If I can be of further assistance, please feel free to contact me at Doctor phone number(s): , Work: . Sincerely, Cornel Gayle MD 08/04/2019 8:27:40 AM This report has been signed electronically.
--- NOTE | 2019-08-04 08:29 | OP.ENDO_ITS ---
08/04/2019 Stevie Rooney Re : Colonoscopy procedure for Elsa Bobby Dear Toribio This procedure was performed on Sunday, August 04, 2019. My impressions and recommendations are as follows: Impressions : - The entire examined colon is normal on direct and retroflexion views. - No specimens collected. Recommendations : - Discharge patient to home. - Resume previous diet. - Continue present medications. - Repeat colonoscopy in 10 years for screening purposes. My findings are described in the full procedure note, which is enclosed. If I can be of further assistance, please feel free to contact me at Doctor phone number(s): , Work: . Sincerely, Cornel Gayle MD 08/04/2019 8:28:59 AM This report has been signed electronically.
== END 2019-08-04 09:19 | disposition home or self-care (01) ==
LOC: EN 06:54 → AC 06:59
PROVIDERS: Family Provider Family Medicine; PCP Family Medicine; Referring Provider Family Medicine; Visit Provider Surgery
PROC: 0DJD8ZZ Inspection of Lower Intestinal Tract, Via Natural or Artificial Opening Endoscopic (ICD-10-PCS; CPT 45378; principal; 2019-08-04 07:55)
DX: K29.70 Gastritis, unspecified, without bleeding (principal); D50.9 Iron deficiency anemia, unspecified; K52.831 Collagenous colitis; M19.90 Unspecified osteoarthritis, unspecified site; G40.909 Epilepsy, unspecified, not intractable, without status epilepticus; K21.9 Gastro-esophageal reflux disease without esophagitis; F41.9 Anxiety disorder, unspecified; F32.9 Major depressive disorder, single episode, unspecified; Z86.73 Personal history of transient ischemic attack (TIA), and cerebral infarction without residual deficits; Z86.79 Personal history of other diseases of the circulatory system; Z79.51 Long term (current) use of inhaled steroids; Z79.82 Long term (current) use of aspirin; Z79.899 Other long term (current) drug therapy
CPT/HCPCS: 43235; 45378; J7120

== ENCOUNTER → 2019-11-17 13:46 | Outpatient (CLI) | payer OTHER, BC, SELFPAY ==
[2019-08-04 07:25] VITALS: BMI 39.8
[2019-11-20 13:27] LABS: HPV APTIMA, High Risk Negative (Negative)
== END ==
PROVIDERS: Visit Provider Obstetrics & Gynecology
DX: Z12.4 Encounter for screening for malignant neoplasm of cervix (principal)
CPT/HCPCS: 87624; 88175; G0145

== ENCOUNTER → 2019-11-26 13:39 | Outpatient (CLI) | payer OTHER, BC, SELFPAY ==
[2019-08-04 07:25] VITALS: BMI 39.8
--- NOTE | 2019-11-26 13:44 | BI_ITS ---
MAMMOGRAPHY - BILATERAL SCREENING REASON FOR EXAM: Female, 63 years old. Routine annual screening examination. PERTINENT HISTORY: Non-contributory. TECHNIQUE: Digital bilateral breast kirsten (3D mammographic acquisition) in the CC and MLO projections. 2-D mediolateral oblique (MLO) and craniocaudad (CC) views of both breasts were obtained. CAD: Full Field Digital Mammography with Computer Added Detection was performed. COMPARISON: Comparison is made with prior study dated November 19, 2017 and November 06, 2018. FINDINGS: Breast Composition: There are scattered areas of fibroglandular density. There are no dominant masses or suspicious calcifications. Stable benign-appearing left axillary lymph nodes. No other significant abnormalities are identified. There has been no significant change since the prior study. BI/SCREEN MAMM (CAD) W/KIRSTEN BILAT IMPRESSION: Stable bilateral screening mammogram. Yearly follow-up mammogram recommended. (A) ASSESSMENT CATEGORY: BIRADS Category 2: Benign. A letter regarding these results will be sent to the patient by the facility within 30 days. Approximately 10% of breast cancers are not detected by mammography. A normal mammogram should not delay biopsy of a clinically suspicious abnormality. [id number] Electronically Signed: Dandre Garay, at 15:05 EST , Service support ,
== END ==
LOC: OPBI 13:42
PROVIDERS: PCP Family Medicine; Referring Provider Obstetrics & Gynecology; Visit Provider Obstetrics & Gynecology
DX: Z12.31 Encounter for screening mammogram for malignant neoplasm of breast (principal)
CPT/HCPCS: 77063; 77067

== ENCOUNTER → 2019-12-02 10:00 | Outpatient (CLI) | payer OTHER, BC, SELFPAY ==
[2019-11-26 14:31] VITALS: BMI 35.4
--- NOTE | 2019-12-02 10:04 | BD_ITS ---
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 COMPARISON: Comparison is made with prior examination dated November 19, 2017. FINDINGS: Lumbar Spine (L1-L4): g/cm2 (1.001) / T-score (-1.4) / Z-score (0.0) Findings are suggestive of osteopenia with a low fracture risk. Left Femur Total: g/cm2 (0.936) / T-score (-0.6) / Z-score (0.5) Left Femoral Neck: g/cm2 (0.814) / T-score (-1.6) / Z-score (-0.3) Right Femur Total: g/cm2 (0.895) / T-score (-0.9) / Z-score (0.1) Right Femoral Neck: g/cm2 (0.847) / T-score (-1.4) / Z-score (-0.1) The T-Scores on the most recent prior examination were: Lumbar Spine (L1-L4): There has been improvement of bone density since the previous examination. Left Femur Total: which represents an improvement of 5.5%. Right Femur Total: which represents an improvement of 2.2%. BD/Dexa Bone Density Study IMPRESSION: The patient is considered osteopenic as outlined below according to World Buddy Organization (WHO) criteria with a moderate fracture risk. There has been improvement of bone density since the previous examination. Reference Information: The T-score is the number of standard deviations above or below the standard which is normal for young adults at their peak bone mineral density. The World Health Organization (WHO) interprets the T-scores as follows: Above -1 Normal bone density Between -1 and -2.5 Osteopenia Equal to / or below -2.5 Osteoporosis As a practical clinical guideline, osteopenia may be graded as follows: Mild -1 through -1.5 Moderate -1.6 through -2.0 Severe -2.1 through -2.4 The Z-score is the number of standard deviations above or below age-matched controls. A Z-score of less than -1.5 would be considered abnormal. References: 1. NIH Osteoporosis and Related Bone Diseases http://www.osteo.org 2. International Society for Clinical Densitometry http://www.iscd.org 3. National Osteoporosis Foundation http://www.nof.org Electronically Signed: Dandre Garay, at 10:17 EST , Service support ,
== END ==
PROVIDERS: PCP Family Medicine; Referring Provider Internal Medicine Endocrinology, Diabetes & Metabolism; Visit Provider Internal Medicine Endocrinology, Diabetes & Metabolism
DX: Z78.0 Asymptomatic menopausal state (principal)
CPT/HCPCS: 77080

== ENCOUNTER → 2020-09-01 08:57 | Outpatient (CLI) | payer OTHER, BC, SELFPAY ==
[2019-11-26 14:31] VITALS: BMI 35.4
[2020-09-01 12:27] LABS: Absolute Lymphocyte Count 1.36 X10^3/uL (0.83-4.51); Absolute Neutrophil Count 2.6 X10^3/uL (2.0-7.7); Basophil# 0.05 X10^3/uL; Basophil% 1.1 % (0-1); Eosinophil# 0.07 X10^3/uL; Eosinophils% 1.6 % (0-5); Hematocrit 40.9 % (37-47); Hemoglobin 13.1 g/dL (12.0-15.0); Lymphocyte # 1.36 X10^3/ul (4.0); Lymphocyte % 30.6 % (19-41); Mean Corpuscular Hgb 29.2 pg (27.0-32.0); Mean Corpuscular Volume 91.1 fL (81-99); Mean Platelet Vol. 8.7 fl (6.2-12.0); Monocyte# 0.36 X10^3/uL; Monocyte% 8.1 % (0-10); NRBC Flagged by Analyzer 0 % (0-5); Neutrophil # 2.59 X10^3/uL (2.7-7.7); Neutrophil % 58.2 % (47-70); Platelet Count 432 K/mm3 (150-450); RBC Distribution Width CV 13.5 % (11.6-14.6); RBC Distribution Width SD 44.8 fl (35.1-43.9); Red Blood Count 4.49 M/mm3 (4.2-5.4); White Blood Count 4.5 K/mm3 (4.4-11.0)
[2020-09-01 13:12] LABS: ALB/GLOB Ratio 1.2 RATIO (0.9-2.4); AST(SGOT) 12 U/L (15-37); Alanine Aminotransfer ALT/SGPT 24 U/L (13-56); Alkaline Phosphatase 51 U/L (45-117); Anion Gap 5 (5-15); BUN 20 mg/dL (7-18); BUN/Creat Ratio 19.2 RATIO (10-20); Calcium,Total 9.1 mg/dL (8.5-10.1); Chloride 107 mmol/L (98-107); Cholesterol 177 mg/dL (200); Creatinine, Serum 1.04 mg/dL (0.55-1.02); EST Glomerular Filtration Rate 57 mL/min (>60); Est Glom Filt Rate - Afr Amer 69 mL/min (>60); Ferritin 40 ng/mL (8-252); Globulin 3.3 g/dL (2.2-4.2); Glucose 79 mg/dL (74-106); High Density Lipoprotein 99 mg/dL; Iron 62 ug/dL (50-170); Potassium 3.7 mmol/L (3.5-5.1); Protein, Total 7.3 g/dL (6.4-8.2); Sodium Level 140 mmol/L (136-145); Triglycerides 47 mg/dL; Very Low Density Lipoprotein 9 mg/dL (5-40)
== END ==
PROVIDERS: PCP Family Medicine; Visit Provider Family Medicine
DX: Z00.00 Encounter for general adult medical examination without abnormal findings (principal); D50.9 Iron deficiency anemia, unspecified
CPT/HCPCS: 36415; 80053; 80061; 82728; 83540; 85025

== ENCOUNTER → 2020-09-14 13:55 | Outpatient (CLI) | payer OTHER, BC, SELFPAY ==
[2019-11-26 14:31] VITALS: BMI 35.4
--- NOTE | 2020-09-14 13:58 | RAD_ITS ---
HISTORY: mid to lower back pain x 1.5 years, NKI ADDITIONAL HISTORY: None provided. EXAMINATION/TECHNIQUE: XR Spine Lumbar 2 or 3 Views Number of images including paperwork: 3 COMPARISON: CT abdomen and pelvis 06/14/2018 FINDINGS: VERTEBRAE: No acute fracture. Mineralization appears decreased. VERTEBRAL ALIGNMENT: No traumatic subluxation. DISKS AND JOINTS: Mild multilevel discogenic degenerative changes. Facet arthropathy, most pronounced L4-S1. SOFT TISSUES: Vascular calcifications. RAD/Lumbar Spine 2 or 3 Views IMPRESSION: Degenerative changes without acute abnormality. at 0524 Reported and signed by: Monica Cueva MD Electronically Signed: Moniac Cueva MD at 5:24 EST Tel , Service support ,
--- NOTE | 2020-09-14 13:58 | RAD_ITS ---
HISTORY: mid to lower back pain x 1.5 years, NKI ADDITIONAL HISTORY: None provided. EXAMINATION/TECHNIQUE: XR Spine Thoracic 3 Views Number of images including paperwork: 3 COMPARISON: CT chest 06/04/2018 FINDINGS: VERTEBRAE: No acute fracture. VERTEBRAL ALIGNMENT: No traumatic subluxation. DISKS AND JOINTS: Mild multilevel discogenic degenerative changes of the thoracic spine. Cervical spine degenerative changes partially visible. SOFT TISSUES: Unremarkable paraspinous soft tissues. RAD/Thoracic Spine 3 Views IMPRESSION: No acute osseous abnormality. Thoracic spondylosis. at 0525 Reported and signed by: Monica Cueva MD Electronically Signed: Monica Cueva MD at 5:25 EST Tel , Service support ,
== END ==
PROVIDERS: PCP Family Medicine; Referring Provider Anesthesiology Pain Medicine; Visit Provider Anesthesiology Pain Medicine
DX: M54.9 Dorsalgia, unspecified (principal)
CPT/HCPCS: 72072; 72100

== ENCOUNTER 2020-10-27 09:00 | Outpatient (RCR) | payer OTHER, BC, SELFPAY ==
[2019-11-26 14:31] VITALS: BMI 35.4
--- NOTE | 2020-09-20 10:03 | HP.PTEVAL_ITS ---
Patient's Visit Information ALICJA EISENBERG is a 64 year old F referred to Physical Therapy by Dr. Candy Luna MD with a diagnosis of BACK PAIN. Date of Evaluation: 09/20/20 Physical Therapist: Laisha Russ PT, Cert MDT - Visit Plan Frequency: 2-3x /Week Duration: 4-6 Weeks Plan: MODALITIES NEEDED. POSTURE CORRECTION/STRENGTHENING, INSTRUCTION IN APPROPRIATE BODY MECHANICS AND ACTIVITY MODIFICATIONS. DLS STARTING WITH A NEUTRAL SPINE PROGRESSING ROM TOLERATED. AGUILAR LE ROM, STRETCHING AND STRENGTHENING. HEP INSTRUCTION. PATIENT IS NOT A GOOD CANDIDATE FOR AQUATIC THERAPY BASED ON PAST EXPERIENCE. 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 Present symptoms: RIGHT MID-BACK PAIN. Present since: ABOUT 18 MONTHS. Pain Scale: WORST 9/10, LEAST 2/10. Currently: 2/10. Commenced as a result of: NO APPARENT REASON. Symptoms at onset: SAME. Worse: BENDING TO DO DISHES, TO FOLD CLOTHES. STARTS HURTING WITHIN 5 TO 10 MINUTES WHEN HAS TO BEND FORWARD. Better: LYING DOWN. Disturbed sleep: NO. Previous history/Previous treatment: H/O LOWER BACK PAIN BUT NOT PAIN UP THIS HIGH IN THE BACK. H/O NAOMI'S BUT NO BACK SURGERY. NO CHIROPRACTOR. Treatment this episode: MALOXACAM, MUSCLE RELAXER AND VICODIN - TAKING THE EDGE OFF. HAS TRIED INJECTION IN THIS AREA FROM DR. LEIJA ABOUT A YEAR AGO AND IT DIDN'T HELP. Coughing/sneezing/straining: POSITIVE. Gait: INDEP GAIT WITHOUT AD. Accidents: NO. Unexplained weight loss: NO. Imaging: RECENT THORACIC X-RAY BY DR. LUNA - No acute osseous abnormality. Thoracic spondylosis. PMH: MITROCONDRIAL DISORDER, EPILEPSY - LAST SEIZURE WAS ABOUT 2 YEARS AGO - PATIENT REQUESTS THAT WE JUST LET HER GO THROUGH THE SEIZURE IF IT OCCURS HERE AND SOMETIMES SHE CAN TELL WHEN IT IS COMING ON. USUALLY NO NEED TO CALL 911. OTHER: STATES SHE SAW DR. JASMINE A FEW MONTHS AGO FOR RIGHT HIP PAIN AND TRIED PT AT [facility] BUT STATES IT WAS TOO PAINFUL. DR. JASMINE GAVE HER A SHOT IN HER HIP AND IT HELPED. - Objective Sitting/Standing Posture: POOR. VERY SLOUCHED. FH. RS'S. INCREASED KYPHOSIS. NO TORTICOLLIS AND NO RELEVENT LATERAL LUMBAR SHIFT. AGUILAR GENU VALGUS. Active Correction of posture: NE. Other Observations: INDEP GAIT INTO PT WITHOUT ASSISTIVE DEVICE. Motor deficit: AGUILAR UE AND LE STRENGTH GROSSLY 4/5 WITH MMT'ING WITH A LITTLE NOTABLE WEAKNESS MORE IN THE LEFT LE COMPARED TO RIGHT. Sensory deficit: AGUILAR UE AND LE LIGHT TOUCH SENSATION APPEARS INTACT AND SYMMETRICAL. ROM deficit: AGUILAR UE'S AND LE'S APPEAR WFL. Reflexes: NT. Dural Signs: NEGATIVE. Lumbar mvmt loss: flex - NIL. ext - MIN. R SG - MOD. L SG - MIN. THORACIC MVMT LOSS: MOD AGUILAR ROTATION. CERVICAL MVMT LOSS: GROSSLY MODERATE MVMT LOSS ALL PLANES AND PAIN WITH AGUILAR SB TESTING. Core strength: POOR. SCAPULAR STRENGTH: POOR. Palpation: NO ACUTE SPINE OR PARASPINAL TENDERNES WITH LIGHT PALAPTION. TREATMENT: NEUROMUSCULAR REEDUCATION - RETRAINING OF MVMT AND POSTURE FOR SITTING, LYING AND STANDING ACTIVITIES. - Goals Goal 1:: DECREASE C/O MID BACK PAIN Goal Time Frame: 4-6 Weeks Goal 2:: IMPROVE PERSONAL CARE, LIFTING, WALKING, SITTING, STANDING, SLEEP, SOCIAL LIFE, TRAVEL AND HOMEMAKING FUNCTION Goal Time Frame: 4-6 Weeks Goal 3:: INSTRUCT IN PROPHYLAXIS Goal Time Frame: 4-6 Weeks - Anticipated Interventions Patient/Client Instruction: Educate patient on: Condition, Plan of Care, Risk Factors, Benefits of Fitness Program For the Purpose of:: To improve self management Therapeutic Exercise to Include: Strength training, Body mechanics, Postural training, Flexibilty training, Neuromotor development, Dynamic Lumbar Stabilization, Scapular Strength/Stabilization For the Purpose of:: To decrease pain, To increase ROM, To improve muscle performance and motor function, To increase tolerance to activity/condition/position, To improve ability of physical actions for ho me/community/work/leisure TENS: Yes IF ES: Yes Thermo therapy (hot pack): Yes Ultrasound (thermal/non thermal): Yes For the Purpose of:: To decrease pain, To improve nutrient delivery to tissue Thank you for the opportunity to evaluate your patient. For Medicare and Medicare HMO plans, please review the plan of care and approve it. It will need to be FAXED BACK to us at [phone] for Medicare purposes. For Medicare only, by signing this I certify the plan of care. Please let me know if there are questions or concerns regarding this plan of care. Physician Signature: Date:
--- NOTE | 2020-10-27 10:09 | HP.PTDCSUM ---
It has been my pleasure to treat ALICJA EISENBERG referred by Dr. Candy Luna MD, with the diagnosis of BACK PAIN for a total of 10 visit(s). Discharge Date: 10/27/20 Please see the following information for a summary of their discharge status. Subjective: MY BACK HAS BEEN BETTER. MY BACK IS DOING OK. CAN FOLD EVERYTHING NOW SOMETIMES BEFORE IT STARTS HURTING. LEFT HIP DOESN'T HURT BAD BEFORE EITHER BUT STILL HAVING PAIN DOWN THE FRONT OF THE THIGH. THIGH PAIN INCREASES WITH INCREASED WALKING. FOLLOW UP PENDING WITH DR. LUNA 11/16/19. REPORTS DR. LUNA KNOWS ABOUT HER L HIP/THIGH PAIN. PATIENT REPORTS THAT IN GENERAL SHE SHE IS STILL GETTING LONGER PERIODS OF BEING ABLE TO DO THINGS BEFORE NEEDING TO REST. LOW BACK Pain Intensity (Out of 10): 0 L HIP Pain Intensity (Out of 10): 7 % Improvement: 40 Objective/Function: PATIENT WAS SEEN TODAY FOR RE-ASSESSMENT OF PROGRESS TOWARD THE SET PT GOALS AND THE NEED FOR FURTHER PHYSICAL THERAPY VS READINESS FOR DISCHARGE. UPON EXAM TODAY PATIENT DEMO'S IMPROVED PAINFREE LUMBAR ROM AND SOME IMPROVEMENT IN HER LE STRENGTH WELL. SHE IS INDEP WITH A HEP AND APPROPRIATE FOR DISCHARGE AT THIS TIME. PATIENT IS AGREEABLE. Lumbar mvmt loss: flex - NIL. ext - MIN. R SG - MIN. L SG - MIN. AGUILAR LE STRENGTH: RIGHT HIP 4/5, KNEE EXT 5/5, KNEE FLEX 5/5, ANKLE 5/5. LEFT HIP 4-/5, KNEE EXT 4/5, KNEE FLEX 4/5, ANKLE 5/5. Goal 1:: DECREASE C/O MID BACK PAIN Goal Progress: Goal Met Goal 2:: IMPROVE PERSONAL CARE, LIFTING, WALKING, SITTING, STANDING, SLEEP, SOCIAL LIFE, TRAVEL AND HOMEMAKING FUNCTION Goal Progress: Goal Met Goal 3:: INSTRUCT IN PROPHYLAXIS Goal Progress: Goal Met Plan: D/C TO HEP If there are questions or concerns regarding this patient's physical therapy, please feel free to call me at [phone]. Thank you for the referral of this patient. Sincerely, Laisha Russ, PT, Cert MDT
== END 2020-10-27 19:00 | disposition home or self-care (01) ==
LOC: PT 09:00
PROVIDERS: PCP Family Medicine; Referring Provider Anesthesiology Pain Medicine; Visit Provider Anesthesiology Pain Medicine
DX: M54.9 Dorsalgia, unspecified (principal)
CPT/HCPCS: 97014; 97035; 97110; 97162; 97164; 97530; G0283

== ENCOUNTER → 2020-11-16 09:30 | Outpatient (CLI) | payer OTHER, SELFPAY ==
[2019-11-26 14:31] VITALS: BMI 35.4
--- NOTE | 2020-11-16 10:00 | RAD_ITS ---
STUDY: X-RAY - PELVIS AND LEFT HIP REASON FOR EXAM: Female, 64 years old. PAIN, NKI TECHNIQUE: 3 views of the pelvis and hip. COMPARISON: None. FINDINGS: There is a non-specific bowel gas pattern. Normal visualized soft tissue structures. Normal bilateral iliac wings, sacroiliac joints and visualized sacrum. Normal bilateral superior and inferior pubic rami. Normal pubic symphysis. Normal bilateral ischial tuberosities. There are osteoarthritic changes of the femoral head with marginal osteophyte formation. There is osteoarthritic spur formation of the acetabular rim. There is mild articular joint space narrowing of the hip. RAD/HIP, UNI W/ Pelvis 2-3 Views IMPRESSION: Mild degenerative changes Electronically Signed: Umang Zamora DO at 5:04 EST Tel , Service support ,
== END ==
PROVIDERS: PCP Family Medicine; Referring Provider Anesthesiology Pain Medicine; Visit Provider Anesthesiology Pain Medicine
DX: M25.552 Pain in left hip (principal)
CPT/HCPCS: 73502

== ENCOUNTER → 2021-02-10 08:46 | Outpatient (CLI) | payer OTHER, SELFPAY ==
[2019-11-26 14:31] VITALS: BMI 35.4
[2021-02-10 10:10] LABS: Absolute Lymphocyte Count 1.38 X10^3/uL (0.83-4.51); Absolute Neutrophil Count 2.3 X10^3/uL (2.0-7.7); Basophil# 0.08 X10^3/uL; Basophil% 1.8 % (0-1); Eosinophil# 0.24 X10^3/uL; Eosinophils% 5.5 % (0-5); Hematocrit 42.4 % (37-47); Hemoglobin 13.3 g/dL (12.0-15.0); Lymphocyte # 1.38 X10^3/ul (0.83-4.51); Lymphocyte % 31.9 % (19-41); Mean Corp Hgb Conc 31.4 g/dL (32-36); Mean Corpuscular Hgb 29.4 pg (27.0-32.0); Mean Corpuscular Volume 93.6 fL (81-99); Mean Platelet Vol. 8.8 fl (6.2-12.0); Monocyte# 0.31 X10^3/uL; Monocyte% 7.2 % (0-10); NRBC Flagged by Analyzer 0 % (0-5); Neutrophil % 53.1 % (47-70); Platelet Count 419 K/mm3 (150-450); RBC Distribution Width CV 13.5 % (11.6-14.6); RBC Distribution Width SD 45.8 fl (35.1-43.9); Red Blood Count 4.53 M/mm3 (4.2-5.4); White Blood Count 4.3 K/mm3 (4.4-11.0)
[2021-02-10 10:39] LABS: ALB/GLOB Ratio 1.2 RATIO (0.9-2.4); AST(SGOT) 12 U/L (15-37); Alanine Aminotransfer ALT/SGPT 21 U/L (13-56); Albumin, Serum 3.8 g/dL (3.2-5.0); Alkaline Phosphatase 62 U/L (45-117); Anion Gap 4 (5-15); BUN 23 mg/dL (7-18); BUN/Creat Ratio 27.1 RATIO (10-20); Calcium,Total 9.2 mg/dL (8.5-10.1); Chloride 106 mmol/L (98-107); Creatinine, Serum 0.85 mg/dL (0.55-1.02); EST Glomerular Filtration Rate 72 mL/min (>60); Est Glom Filt Rate - Afr Amer 87 mL/min (>60); Globulin 3.3 g/dL (2.2-4.2); Glucose 81 mg/dL (74-106); Potassium 3.9 mmol/L (3.5-5.1); Protein, Total 7.1 g/dL (6.4-8.2); Sodium Level 140 mmol/L (136-145)
[2021-02-13 21:53] LABS: Lamotrigine (Lamictal) Level 6.1 ug/mL (2.0-20.0)
== END ==
PROVIDERS: PCP Family Medicine; Visit Provider Psychiatry & Neurology Neurology
DX: G40.109 Localization-related (focal) (partial) symptomatic epilepsy and epileptic syndromes with simple partial seizures, not intractable, without status epilepticus (principal)
CPT/HCPCS: 36415; 80053; 82542; 85025

== ENCOUNTER → 2021-04-05 08:14 | Outpatient (CLI) | payer OTHER, SELFPAY ==
[2019-11-26 14:31] VITALS: BMI 35.4
[2021-04-05 09:08] LABS: Absolute Neutrophil Count 2.3 X10^3/uL (2.0-7.7); Basophil% 2.1 % (0-1); Eosinophils% 4.1 % (0-5); Hematocrit 41.7 % (37-47); Hemoglobin 13.4 g/dL (12.0-15.0); Mean Corp Hgb Conc 32.1 g/dL (32-36); Mean Corpuscular Hgb 29.3 pg (27.0-32.0); Mean Platelet Vol. 8.9 fl (6.2-12.0); Monocyte# 0.41 X10^3/uL; Monocyte% 8.4 % (0-10); NRBC Flagged by Analyzer 0 % (0-5); Neutrophil # 2.33 X10^3/uL (2.7-7.7); Platelet Count 391 K/mm3 (150-450); RBC Distribution Width CV 12.8 % (11.6-14.6); RBC Distribution Width SD 42.1 fl (35.1-43.9); Red Blood Count 4.58 M/mm3 (4.2-5.4); White Blood Count 4.9 K/mm3 (4.4-11.0)
[2021-04-05 09:58] LABS: ALB/GLOB Ratio 1.2 RATIO (0.9-2.4); AST(SGOT) 24 U/L (15-37); Alanine Aminotransfer ALT/SGPT 28 U/L (13-56); Albumin, Serum 3.7 g/dL (3.2-5.0); Alkaline Phosphatase 80 U/L (45-117); Anion Gap 5 (5-15); BUN 20 mg/dL (7-18); BUN/Creat Ratio 21.2 RATIO (10-20); Calcium,Total 8.9 mg/dL (8.5-10.1); Chloride 107 mmol/L (98-107); Creatinine, Serum 0.94 mg/dL (0.55-1.02); EST Glomerular Filtration Rate 64 mL/min (>60); Est Glom Filt Rate - Afr Amer 77 mL/min (>60); Ferritin 31 ng/mL (8-252); Globulin 3.1 g/dL (2.2-4.2); Glucose 82 mg/dL (74-106); Iron 68 ug/dL (50-170); Potassium 3.7 mmol/L (3.5-5.1); Protein, Total 6.8 g/dL (6.4-8.2); Sodium Level 140 mmol/L (136-145); T4 Free Direct 0.95 ng/dL (0.76-1.46); Thyroid Stim Hormone (TSH) 3.88 uIU/mL (0.358-3.74)
== END ==
PROVIDERS: PCP Family Medicine; Referring Provider Family Medicine; Visit Provider Family Medicine
DX: D50.9 Iron deficiency anemia, unspecified (principal); R25.1 Tremor, unspecified; G40.909 Epilepsy, unspecified, not intractable, without status epilepticus
CPT/HCPCS: 36415; 80053; 82728; 83540; 84439; 84443; 85025

== ENCOUNTER → 2022-06-22 | Outpatient (CLI) | payer BC, SELFPAY ==
[2022-06-22 09:07] LABS: Ferritin 21 ng/mL (8-252); Iron 65 ug/dL (50-170); Iron Binding Capacity,Total 324 ug/dL (250-450)
== END | disposition home or self-care (01) ==
PROVIDERS: PCP Family Medicine; Referring Provider Psychiatry & Neurology Neurology; Visit Provider Psychiatry & Neurology Neurology
DX: G25.81 Restless legs syndrome (principal)
CPT/HCPCS: 36415; 82728; 83540; 83550

== ENCOUNTER → 2022-09-05 | Outpatient (CLI) | payer BC, SELFPAY ==
--- NOTE | 2022-09-05 08:30 | EKG12_ITS ---
Test Reason : PRE-OP Blood Pressure : / mmHG Vent. Rate : 081 BPM Atrial Rate : 081 BPM P-R Int : 170 ms QRS Dur : 088 ms QT Int : 374 ms P-R-T Axes : 060 -18 056 degrees QTc Int : 434 ms Normal sinus rhythm Normal ECG Confirmed by KANG CEJA, MITCHELL ([id number]), mapping editor SYDNEY NOLAN ([id number]) on 09/11/2022 10:58:18 AM Referred By: Sanchez De Confirmed By:ISRRAEL KAPADIA MD
[2022-09-05 09:07] LABS: Absolute Lymphocyte Count 1.45 X10^3/uL (0.83-4.51); Absolute Neutrophil Count 2.7 X10^3/uL (2.0-7.7); Basophil# 0.07 X10^3/uL; Basophil% 1.4 % (0-1); Eosinophil# 0.23 X10^3/uL; Eosinophils% 4.7 % (0-5); Hematocrit 41.8 % (37-47); Hemoglobin 13.3 g/dL (12.0-15.0); Lymphocyte # 1.45 X10^3/ul (0.83-4.51); Lymphocyte % 29.5 % (19-41); Mean Corp Hgb Conc 31.8 g/dL (32-36); Mean Corpuscular Hgb 28.7 pg (27.0-32.0); Mean Corpuscular Volume 90.1 fL (81-99); Mean Platelet Vol. 8.7 fl (6.2-12.0); Monocyte% 8.1 % (0-10); NRBC Flagged by Analyzer 0 % (0-5); Neutrophil # 2.74 X10^3/uL (2.7-7.7); Neutrophil % 55.9 % (47-70); Platelet Count 412 K/mm3 (150-450); RBC Distribution Width SD 45.8 fl (35.1-43.9); Red Blood Count 4.64 M/mm3 (4.2-5.4); White Blood Count 4.9 K/mm3 (4.4-11.0)
[2022-09-05 09:27] LABS: Anion Gap 4 (5-15); BUN 15 mg/dL (7-18); BUN/Creat Ratio 16.7 RATIO (10-20); Calcium,Total 9.4 mg/dL (8.5-10.1); Chloride 109 mmol/L (98-107); EST Glomerular Filtration Rate 67 mL/min (>60); Est Glom Filt Rate - Afr Amer 81 mL/min (>60); Glucose 93 mg/dL (74-106); Potassium 4.1 mmol/L (3.5-5.1); Sodium Level 141 mmol/L (136-145)
[2022-09-05 10:48] LABS: Hemoglobin A1c 5.1 % (3.8-5.6)
== END | disposition home or self-care (01) ==
PROVIDERS: Physician Assistant; PCP Family Medicine; Referring Provider Orthopaedic Surgery; Visit Provider Orthopaedic Surgery
DX: Z01.810 Encounter for preprocedural cardiovascular examination (principal)
CPT/HCPCS: 36415; 80048; 83036; 85025; 93005

== ENCOUNTER → 2023-02-19 | Outpatient (CLI) | payer MEDICARE, BC, SELFPAY ==
[2023-02-19 12:58] LABS: Absolute Lymphocyte Count 1.44 X10^3/uL (0.83-4.51); Absolute Neutrophil Count 2.1 X10^3/uL (2.0-7.7); Basophil# 0.04 X10^3/uL; Eosinophil# 0.12 X10^3/uL; Hematocrit 44.3 % (37-47); Hemoglobin 14.2 g/dL (12.0-15.0); Lymphocyte # 1.44 X10^3/ul (0.83-4.51); Lymphocyte % 36.1 % (19-41); Mean Corp Hgb Conc 32.1 g/dL (32-36); Mean Corpuscular Hgb 29.6 pg (27.0-32.0); Mean Corpuscular Volume 92.5 fL (81-99); Monocyte# 0.27 X10^3/uL; Monocyte% 6.8 % (0-10); NRBC Flagged by Analyzer 0 % (0-5); Neutrophil # 2.11 X10^3/uL (2.7-7.7); Neutrophil % 52.8 % (47-70); Platelet Count 420 K/mm3 (150-450); RBC Distribution Width SD 44.5 fl (35.1-43.9); Red Blood Count 4.79 M/mm3 (4.2-5.4)
[2023-02-19 13:32] LABS: Vitamin B12 934 pg/mL (211-911); Vitamin D,25 Hydroxy 29.2 ng/mL
[2023-02-19 13:37] LABS: ALB/GLOB Ratio 1.2 RATIO (0.9-2.4); AST(SGOT) 16 U/L (15-37); Alanine Aminotransfer ALT/SGPT 27 U/L (13-56); Albumin, Serum 3.9 g/dL (3.2-5.0); Alkaline Phosphatase 63 U/L (45-117); Anion Gap 3 (5-15); BUN 18 mg/dL (7-18); BUN/Creat Ratio 20.2 RATIO (10-20); Calcium,Total 8.7 mg/dL (8.5-10.1); Chloride 108 mmol/L (98-107); Cholesterol 184 mg/dL (200); Creatinine, Serum 0.89 mg/dL (0.55-1.02); EST Glomerular Filtration Rate 68 mL/min (>60); Est Glom Filt Rate - Afr Amer 82 mL/min (>60); Globulin 3.2 g/dL (2.2-4.2); Glucose 95 mg/dL (74-106); High Density Lipoprotein 50 mg/dL; Potassium 3.7 mmol/L (3.5-5.1); Protein, Total 7.1 g/dL (6.4-8.2); Sodium Level 137 mmol/L (136-145); Thyroid Stim Hormone (TSH) 1.06 uIU/mL (0.358-3.74); Triglycerides 236 mg/dL; Very Low Density Lipoprotein 47 mg/dL (5-40)
[2023-02-21 16:09] LABS: Lamotrigine (Lamictal) Level 3.2 ug/mL (2.0-20.0)
== END | disposition home or self-care (01) ==
PROVIDERS: PCP Internal Medicine; Visit Provider Internal Medicine
DX: G40.109 Localization-related (focal) (partial) symptomatic epilepsy and epileptic syndromes with simple partial seizures, not intractable, without status epilepticus (principal); E55.9 Vitamin D deficiency, unspecified; E03.9 Hypothyroidism, unspecified
CPT/HCPCS: 36415; 80053; 80061; 82306; 82542; 82607; 84443; 85025

== ENCOUNTER → 2023-03-14 | Outpatient (CLI) | payer MEDICARE, BC, SELFPAY ==
[2023-03-14 12:12] LABS: Absolute Lymphocyte Count 1.29 X10^3/uL (0.83-4.51); Absolute Neutrophil Count 2.9 X10^3/uL (2.0-7.7); Basophil# 0.08 X10^3/uL; Basophil% 1.6 % (0-1); Eosinophil# 0.43 X10^3/uL; Eosinophils% 8.5 % (0-5); Hematocrit 42.1 % (37-47); Hemoglobin 13.3 g/dL (12.0-15.0); Lymphocyte # 1.29 X10^3/ul (0.83-4.51); Lymphocyte % 25.5 % (19-41); Mean Corp Hgb Conc 31.6 g/dL (32-36); Mean Corpuscular Hgb 29.6 pg (27.0-32.0); Mean Corpuscular Volume 93.8 fL (81-99); Mean Platelet Vol. 8.9 fl (6.2-12.0); Monocyte# 0.39 X10^3/uL; Monocyte% 7.7 % (0-10); NRBC Flagged by Analyzer 0 % (0-5); Neutrophil # 2.85 X10^3/uL (2.7-7.7); Neutrophil % 56.3 % (47-70); Platelet Count 496 K/mm3 (150-450); RBC Distribution Width CV 12.7 % (11.6-14.6); RBC Distribution Width SD 43.7 fl (35.1-43.9); Red Blood Count 4.49 M/mm3 (4.2-5.4); White Blood Count 5.1 K/mm3 (4.4-11.0)
[2023-03-14 13:11] LABS: ALB/GLOB Ratio 1.4 RATIO (0.9-2.4); AST(SGOT) 19 U/L (15-37); Alanine Aminotransfer ALT/SGPT 27 U/L (13-56); Albumin, Serum 4.1 g/dL (3.2-5.0); Alkaline Phosphatase 60 U/L (45-117); Anion Gap 7 (5-15); BUN 28 mg/dL (7-18); Calcium,Total 9.2 mg/dL (8.5-10.1); Chloride 110 mmol/L (98-107); Creatinine, Serum 0.97 mg/dL (0.55-1.02); EST Glomerular Filtration Rate 62 mL/min (>60); Est Glom Filt Rate - Afr Amer 74 mL/min (>60); Globulin 2.9 g/dL (2.2-4.2); Glucose 93 mg/dL (74-106); Potassium 4.1 mmol/L (3.5-5.1); Rheumatoid Factor < 10.0 IU/mL (<15); Sodium Level 141 mmol/L (136-145)
[2023-03-14 13:33] LABS: Hepatitis C Antibody Non-Reactive (Nonreactive)
[2023-03-15 16:09] LABS: ANTINUCLEAR ANTIBODIES DIRECT Negative (Negative); RNP Ab <0.2 AI (0.0-0.9); Smith Ab <0.2 AI (0.0-0.9)
[2023-03-18 19:07] LABS: Albumin 3.8 g/dL (2.9-4.4); Alpha-1-Globulins 0.2 g/dL (0.0-0.4); Alpha-2-Globulins 0.6 g/dL (0.4-1.0); CCP IgG Antibodies 2 units (0-19); Gamma Globulin 0.8 g/dL (0.4-1.8); Immunoglobulin A 137 mg/dL (87-352); Immunoglobulin G 666 mg/dL (586-1602); Immunoglobulin M 230 mg/dL (26-217); Lamotrigine (Lamictal) Level 4.4 ug/mL (2.0-20.0); PROEL- TOTAL PROTEIN 6.4 g/dL (6.0-8.5); VITAMIN B6 16.6 ug/L (3.4-65.2); Vitamin B1, Thiamine 168.8 nmol/L (66.5-200.0)
== END | disposition home or self-care (01) ==
LOC: BIMLAB 11:01
PROVIDERS: PCP Internal Medicine; Referring Provider Psychiatry & Neurology Neurology; Visit Provider Psychiatry & Neurology Neurology
DX: G40.309 Generalized idiopathic epilepsy and epileptic syndromes, not intractable, without status epilepticus (principal); R20.2 Paresthesia of skin
CPT/HCPCS: 36415; 80053; 82542; 82784; 84165; 84207; 84425; 85025; 86038; 86200; 86235; 86334; 86431; 86803

== ENCOUNTER → 2023-08-14 | Outpatient (CLI) | payer MEDICARE, BC, SELFPAY ==
[2023-08-14 13:05] LABS: Mucous, Urine 0 SEEN /hpf (<or=2+); Red Blood Cells-Urine 0 SEEN /hpf (0-5)
[2023-08-14 13:21] LABS: Color, Urine Straw (Yellow); Glucose, Dipstick Normal (Normal); Ketone-Dipstick Negative (Negative); Leukocyte Esterase-Dipstick 500 /ul (Negative); Nitrite-Dipstick Negative (Negative); Occult Blood-Urine 25 /ul (Negative); Protein-Dipstick Negative (Negative); Specific Gravity, Urine 1.005 (1.002-1.030); Urine Bilirubin Dipstick Negative (Negative); Urine Clarity Clear (Clear); Urine Urobilinogen Normal (Normal)
[2023-08-14 13:43] LABS: Bacteria 1+ /hpf (None Seen); Squamous Epithelial Cells - UA 0-5 SEEN /hpf (5-10); White Blood Cells 50-100 SEEN /hpf (0-5)
== END | disposition home or self-care (01) ==
LOC: LABSPEC 13:00
PROVIDERS: PCP Internal Medicine; Referring Provider Physician Assistant; Visit Provider Physician Assistant
DX: R30.0 Dysuria (principal)
CPT/HCPCS: 81001; 87086; 87186

== ENCOUNTER → 2023-09-26 | Outpatient (CLI) | payer MEDICARE, BC, SELFPAY ==
[2023-09-26 08:58] LABS: Bacteria 0 SEEN /hpf (None Seen); Mucous, Urine 0 SEEN /hpf (<or=2+); Red Blood Cells-Urine 0 SEEN /hpf (0-5)
[2023-09-26 10:14] LABS: Color, Urine Yellow (Yellow); Glucose, Dipstick Normal (Normal); Ketone-Dipstick Negative (Negative); Leukocyte Esterase-Dipstick 25 /ul (Negative); Nitrite-Dipstick Negative (Negative); Occult Blood-Urine 10 /ul (Negative); Protein-Dipstick Negative (Negative); Specific Gravity, Urine 1.015 (1.002-1.030); Urine Bilirubin Dipstick Negative (Negative); Urine Clarity Clear (Clear); Urine Urobilinogen Normal (Normal); Urine pH 6.5 (5.0 - 8.0)
[2023-09-26 10:45] LABS: White Blood Cells 5-10 SEEN /hpf (0-5)
[2023-09-26 10:46] LABS: Squamous Epithelial Cells - UA 0-5 SEEN /hpf (5-10)
== END | disposition home or self-care (01) ==
LOC: LABSPEC 08:56
PROVIDERS: PCP Internal Medicine; Visit Provider Physician Assistant Surgical
DX: N39.0 Urinary tract infection, site not specified (principal); R30.0 Dysuria
CPT/HCPCS: 81001; 87086; 87088

== ENCOUNTER → 2024-02-06 | Outpatient (CLI) | payer MEDICARE, BC, SELFPAY ==
[2024-02-06 07:22] LABS: Absolute Lymphocyte Count 1.72 X10^3/uL (0.83-4.51); Absolute Neutrophil Count 2.2 X10^3/uL (2.0-7.7); Basophil# 0.11 X10^3/uL; Basophil% 2.4 % (0-1); Eosinophil# 0.25 X10^3/uL; Eosinophils% 5.4 % (0-5); Hematocrit 40.7 % (37-47); Hemoglobin 13.2 g/dL (12.0-15.0); Lymphocyte # 1.72 X10^3/ul (0.83-4.51); Mean Corp Hgb Conc 32.4 g/dL (32-36); Mean Corpuscular Hgb 29.9 pg (27.0-32.0); Mean Corpuscular Volume 92.1 fL (81-99); Mean Platelet Vol. 9.5 fl (6.2-12.0); Monocyte# 0.39 X10^3/uL; Monocyte% 8.4 % (0-10); NRBC Flagged by Analyzer 0 % (0-5); Neutrophil # 2.16 X10^3/uL (2.7-7.7); Neutrophil % 46.4 % (47-70); Platelet Count 385 K/mm3 (150-450); RBC Distribution Width CV 13.5 % (11.6-14.6); RBC Distribution Width SD 45.8 fl (35.1-43.9); Red Blood Count 4.42 M/mm3 (4.2-5.4); White Blood Count 4.7 K/mm3 (4.4-11.0)
[2024-02-06 08:42] LABS: ALB/GLOB Ratio 1.1 RATIO (0.9-2.4); AST(SGOT) 17 U/L (15-37); Alanine Aminotransfer ALT/SGPT 28 U/L (13-56); Albumin, Serum 3.6 g/dL (3.2-5.0); Alkaline Phosphatase 70 U/L (45-117); Anion Gap 3 (5-15); BUN 25 mg/dL (7-18); BUN/Creat Ratio 27.9 RATIO (10-20); Calcium,Total 9.1 mg/dL (8.5-10.1); Chloride 111 mmol/L (98-107); Cholesterol 217 mg/dL (200); EST Glomerular Filtration Rate 67 mL/min (>60); Est Glom Filt Rate - Afr Amer 81 mL/min (>60); Globulin 3.2 g/dL (2.2-4.2); Glucose 93 mg/dL (74-106); High Density Lipoprotein 57 mg/dL; Potassium 4.1 mmol/L (3.5-5.1); Protein, Total 6.8 g/dL (6.4-8.2); Sodium Level 141 mmol/L (136-145); Thyroid Stim Hormone (TSH) 4.44 uIU/mL (0.358-3.74); Triglycerides 154 mg/dL; Very Low Density Lipoprotein 31 mg/dL (5-40)
[2024-02-06 08:48] LABS: Vitamin B12 669 pg/mL (211-911)
== END | disposition home or self-care (01) ==
LOC: LAB 06:38
PROVIDERS: PCP Internal Medicine; Referring Provider Internal Medicine; Visit Provider Internal Medicine
DX: E03.9 Hypothyroidism, unspecified (principal); M85.80 Other specified disorders of bone density and structure, unspecified site
CPT/HCPCS: 36415; 80053; 80061; 82306; 82607; 84443; 85025

== ENCOUNTER → 2024-02-21 | Outpatient (CLI) | payer MEDICARE, BC, SELFPAY ==
[2024-02-24 15:07] LABS: Lamotrigine (Lamictal) Level 7.7 ug/mL (2.0-20.0)
== END | disposition home or self-care (01) ==
PROVIDERS: PCP Internal Medicine; Referring Provider Psychiatry & Neurology Neurology; Visit Provider Psychiatry & Neurology Neurology
DX: G40.109 Localization-related (focal) (partial) symptomatic epilepsy and epileptic syndromes with simple partial seizures, not intractable, without status epilepticus (principal)
CPT/HCPCS: 36415; 82542

== ENCOUNTER → 2024-02-25 | Outpatient (CLI) | payer MEDICARE, BC, SELFPAY ==
--- NOTE | 2024-02-25 09:39 | VDLE_ITS ---
Reason For Study: Left leg swelling RIGHT LEFT CFV is compressible, spontaneous, phasic, GSV is normal. competent and demonstrates normal CFV is compressible, spontaneous, phasic, augmentation. competent, and demonstrates normal Procedure augmentation. This is a venous duplex using B-mode, color FV is compressible, spontaneous, phasic, flow and spectral Doppler. competent and demonstrates normal Exam performed in department. augmentation. A preliminary report was called and/or faxed POP V is compressible, spontaneous, phasic, to Dr. Prieto. competent and demonstrates normal augmentation. T/P Trunk is compressible. PTV is compressible. LT PerV is compressible. VL/Venous Duplex US, Unilateral Interpretation Summary Deep veins of the left lower extremity are patent and compressible segmentally. There is no evidence of left lower extremity deep vein thrombosis. The left great saphenous vein kiera ears patent and compressible segmentally. Ordering Physician: Katia Prieto Referring Physician: Katia Prieto Performed By: Domonique Schroeder RVT
== END | disposition home or self-care (01) ==
LOC: CVS 09:38
PROVIDERS: PCP Internal Medicine; Referring Provider Internal Medicine; Visit Provider Internal Medicine
DX: R06.02 Shortness of breath (principal)
CPT/HCPCS: 93971

== ENCOUNTER → 2024-03-06 | Outpatient (CLI) | payer MEDICARE, BC, SELFPAY ==
--- NOTE | 2024-03-06 10:42 | ECHOCS_ITS ---
Reason For Study: Murmur Procedure This was a 2D Doppler, Color Flow transthoracic echocardiogram. Contrast injection was performed. Exam performed in department. Left Ventricle Normal size and thickness. The left ventricular ejection fraction is 65 %. Normal diastology for age. Right Ventricle Normal right ventricle. Atria The left atrium is mildly enlarged. Normal right atrium. Bubble contrast study is negative for PFO/ASD. Mitral Valve Mild-Moderate (1-2+) mitral valve insufficiency. Tricuspid Valve Trivial tricuspid valve insufficiency. Normal pulmonary artery pressure. Aortic Valve Trisinus/trileaflet aortic valve. Trivial aortic valve insufficiency. Pulmonic Valve The pulmonic valve is not well visualized. Great Vessels Normal sized aortic root. Pericardium/Pleural No pericardial effusion. Medication Performed a rapid injection of agitated mix of 9 cc saline and 1cc air to assess for atrial septal defect. Diluted definity 1.5ml given slow IV push to enhance endocardial definition. MMode/2D Measurements & Calculations LVIDd: 3.6 cm IVSd: 1.1 cm Ao root diam: 2.9 cm LVIDs: 2.6 cm LVPWd: 1.0 cm RVDd: 3.6 cm FS: 28.2 % LAV(MOD-bp): 55.0 ml LVAd ap4: 28.1 cm2 SV(MOD-sp4): 59.6 ml LAV(MOD-bp) Indexed: 29.6 ml/m2 LVLd ap4: 7.1 cm LAV(MOD-sp2): 58.5 ml EDV(MOD-sp4): 92.3 ml LAV(MOD-sp4): 50.5 ml EDV(sp4-el): 95.2 ml LVAs ap4: 14.2 cm2 LVLs ap4: 5.1 cm ESV(MOD-sp4): 32.7 ml ESV(sp4-el): 33.4 ml EF(MOD-sp4): 64.6 % EF(sp4-el): 64.9 % SV(sp4-el): 61.8 ml LA A4 area: 19.0 cm2 LA dimension(2D): 4.1 cm RA A4 area: 10.6 cm2 TAPSE: 2.0 cm Time Measurements MV dec time: 0.21 sec Doppler Measurements & Calculations MV E max gabino: 72.1 cm/sec Lat Peak E' Gabino: 12.8 cm/sec Med Peak E' Gabino: 7.1 cm/sec MV A max gabino: 101.0 cm/sec E/E' lat: 5.6 E/E' med: 10.2 MV E/A: 0.71 MV dec slope: 339.8 cm/sec2 Ao V2 max: 156.4 cm/sec LV V1 max: 117.8 cm/sec Ao max P.8 mmHg LV V1 max P.6 mmHg Ao V2 mean: 105.8 cm/sec LV V1 mean P.2 mmHg Ao mean P.1 mmHg LV V1 mean: 83.3 cm/sec Ao V2 VTI: 35.7 cm LV V1 VTI: 28.1 cm AV (velocity ratio): 0.79 PA V2 max: 102.5 cm/sec TR max gabino: 227.6 cm/sec TR max P.7 mmHg ECHO/Echo Complete W/ Contrast Interpretation Summary The left ventricular ejection fraction is 65 %. The left atrium is mildly enlarged. Mild-Moderate (1-2+) mitral valve insufficiency. Ordering Physician: Olga Ayala Referring Physician: Katia Prieto Performed By: Saskia Carlos, RDCS, RVT
== END | disposition home or self-care (01) ==
LOC: CVS 10:42
PROVIDERS: PCP Internal Medicine; Referring Provider Physician Assistant; Visit Provider Physician Assistant
DX: R01.1 Cardiac murmur, unspecified (principal)
CPT/HCPCS: 93306; Q9957; A4216; C8929

== ENCOUNTER → 2024-03-12 | Outpatient (CLI) | payer MEDICARE, BC, SELFPAY ==
--- NOTE | 2024-03-12 09:50 | VDLE_ITS ---
Reason For Study: BLE Swelling RIGHT LEFT CFV is compressible, spontaneous, phasic, CFV is compressible, spontaneous, phasic, competent and demonstrates normal competent, and demonstrates normal augmentation. augmentation. FV is compressible, spontaneous, phasic, FV is compressible, spontaneous, phasic, competent and demonstrates normal competent and demonstrates normal augmentation. augmentation. POP V is compressible, spontaneous, phasic, POP V is compressible, spontaneous, phasic, competent and demonstrates normal competent and demonstrates normal augmentation. augmentation. T/P Trunk is compressible. T/P Trunk is compressible. PTV is compressible. PTV is compressible. RT PerV is compressible. LT PerV is compressible. SFJ is competent and measures 0.50 cm. SFJ is INCOMPETENT and measures 0.72 cm. GSV proximal thigh measures 0.35 x0.31 cm. GSV proximal thigh measures 0.53 x 0.53 cm. GSV at knee measures 0.29 x 0.30 cm. GSV at knee measures 0.50 x 0.48 cm. GSV is competent throughout. GSV above knee is INCOMPETENT for greater SSV proximal calf is competent and measures than 0.5 seconds. 0.27 x 0.25 cm. GSV below knee is competent. Procedure SSV proximal calf is competent and measures Exam performed in department. 0.39 x 0.37 cm. This is a venous duplex using B-mode, color Non vascularized anechoic area measuring flow and spectral Doppler. approximately 4.01cm x 1.21cm is noted in the The exam was diagnostic. Lt POP Fossa. Patient was scanned in reverse Trendelenburg position during reflux assessment. VL/Venous Duplex US - Jaren Extrem Interpretation Summary Deep veins of the bilateral lower extremities are patent and compressible segme ntally. There is no evidence of bilateral lower extremity deep vein thrombosis. The bilateral great saphenous veins appear patent and compressible segmentally. Positive for reflux in the left saphenofemoral junction, great saphenous vein a zeyad the knee. Non vascularized anechoic area measuring approximately 4.01cm x 1.21cm is noted in the left popliteal fossa. Ordering Physician: Olga Ayala Referring Physician: Katia Prieto Performed By: Dave Levy RVT
== END | disposition home or self-care (01) ==
LOC: CVS 09:49
PROVIDERS: PCP Internal Medicine; Referring Provider Physician Assistant; Visit Provider Physician Assistant
DX: R60.0 Localized edema (principal)
CPT/HCPCS: 93970

== ENCOUNTER → 2024-06-11 | Outpatient (CLI) | payer MEDICARE, BC, SELFPAY ==
[2024-06-11 10:10] LABS: Hematocrit 43.3 % (37-47); Hemoglobin 13.9 g/dL (12.0-15.0); Mean Corp Hgb Conc 32.1 g/dL (32-36); Mean Corpuscular Hgb 29.2 pg (27.0-32.0); Mean Platelet Vol. 9.8 fl (6.2-12.0); Platelet Count 394 K/mm3 (150-450); RBC Distribution Width CV 13.5 % (11.6-14.6); RBC Distribution Width SD 45.7 fl (35.1-43.9); Red Blood Count 4.76 M/mm3 (4.2-5.4); White Blood Count 4.1 K/mm3 (4.4-11.0)
[2024-06-11 10:11] LABS: Erythrocyte Sedimentation Rate 7 mm/hr (0-30)
[2024-06-11 11:51] LABS: ALB/GLOB Ratio 1.2 RATIO (0.9-2.4); AST(SGOT) 17 U/L (15-37); Alanine Aminotransfer ALT/SGPT 21 U/L (13-56); Alkaline Phosphatase 70 U/L (45-117); Anion Gap 9 (5-15); BUN 21 mg/dL (7-18); BUN/Creat Ratio 22.8 RATIO (10-20); CPK Total, Creatine Kinase 73 U/L (26-192); Calcium,Total 9.2 mg/dL (8.5-10.1); Chloride 108 mmol/L (98-107); Creatinine, Serum 0.92 mg/dL (0.55-1.02); EST Glomerular Filtration Rate 65 mL/min (>60); Est Glom Filt Rate - Afr Amer 78 mL/min (>60); Globulin 3.2 g/dL (2.2-4.2); Glucose 88 mg/dL (74-106); Magnesium 2.3 mg/dL (1.6-2.6); Potassium 3.8 mmol/L (3.5-5.1); Protein, Total 7.2 g/dL (6.4-8.2); Sodium Level 141 mmol/L (136-145)
[2024-06-11 13:45] LABS: Vitamin B12 973 pg/mL (211-911)
[2024-06-12 13:42] LABS: ANTINUCLEAR ANTIBODIES DIRECT Negative (Negative)
[2024-06-15 10:07] LABS: Aldolase 6.2 U/L (3.3-10.3); Myoglobin, Serum 72 ng/mL (25-58); Vitamin B1, Thiamine 155.4 nmol/L (66.5-200.0)
== END | disposition home or self-care (01) ==
PROVIDERS: PCP Internal Medicine; Referring Provider Psychiatry & Neurology Neurology; Visit Provider Psychiatry & Neurology Neurology
DX: R53.83 Other fatigue (principal); E88.40 Mitochondrial metabolism disorder, unspecified
CPT/HCPCS: 36415; 80053; 82085; 82550; 82607; 82746; 83735; 83874; 84425; 84443; 85027; 85652; 86038; 86225; 86235

== ENCOUNTER → 2024-06-16 | Outpatient (CLI) | payer MEDICARE, BC, SELFPAY ==
[2024-06-16 11:18] LABS: Ferritin 165 ng/mL (8-252); Iron 86 ug/dL (50-170)
[2024-06-18 17:07] LABS: Lamotrigine (Lamictal) Level 4.4 ug/mL (2.0-20.0)
== END | disposition home or self-care (01) ==
LOC: MTLAB 07:48
PROVIDERS: PCP Internal Medicine; Referring Provider Psychiatry & Neurology Neurology; Visit Provider Psychiatry & Neurology Neurology
DX: G40.909 Epilepsy, unspecified, not intractable, without status epilepticus (principal); Z86.2 Personal history of diseases of the blood and blood-forming organs and certain disorders involving the immune mechanism
CPT/HCPCS: 36415; 82140; 82542; 82728; 83540

== ENCOUNTER → 2024-06-30 | Outpatient (CLI) | payer MEDICARE, BC, SELFPAY ==
--- NOTE | 2024-06-30 06:40 | MRI_ITS ---
STUDY: MRI BRAIN WITH AND WITHOUT CONTRAST REASON FOR EXAM: Female, 68 years old. hx seizures; migraine headaches; visual auras TECHNIQUE: Standardized multiplanar fat and water weighted pulse sequences were obtained. IV 17ml clariscan was administered for the contrast portion of the examination. COMPARISON: September 26, 2015 FINDINGS: Normal size of the ventricles and extra-axial spaces for the patient''s age. There are a few scattered punctate white matter lesions likely representing chronic small vessel ischemic changes without mass effect or restricted diffusion. Normal bilateral basal ganglia. Normal thalami. There is no extra-axial fluid accumulation. Normal flow voids within the major intracranial circulation suggesting patency by spin echo criteria. Normal venous enhancement. There is no enhancing intra-axial or extra-axial abnormality. Empty sella deformity of uncertain clinical significance. Normal, infundibular stalk, optic chiasm and hypothalamus. Normal tectal plate and pineal gland. Normal midbrain, chacorta and medulla. Normal cerebellum. Normal basal cisterns. Normal bilateral temporal bones. Normal bilateral internal auditory canals. No demonstrated orbital abnormality, within the constraints of a routine brain study. Mild mucosal thickening of the bilateral maxillary sinuses.. Normal calvarium and skull base. Normal visualized soft tissue structures. Normal visualized upper cervical spine. No significant change in the degree of white matter disease since prior exam There is improvement in the degree of right maxillary sinusitis since prior exam although the mucosal disease on the left is new finding. MRI/Brain W/WO Contrast IMPRESSION: Mild nonspecific periventricular white matter disease most likely chronic small vessel ischemia without evidence for acute infarct. No mass or other enhancing lesions following contrast administration Electronically Signed: Yousuf Meier MD at 23:02 EDT ,
== END | disposition home or self-care (01) ==
LOC: MRI 06:29
PROVIDERS: PCP Internal Medicine; Referring Provider Psychiatry & Neurology Neurology; Visit Provider Psychiatry & Neurology Neurology
DX: G40.909 Epilepsy, unspecified, not intractable, without status epilepticus (principal); G44.209 Tension-type headache, unspecified, not intractable; H53.9 Unspecified visual disturbance
CPT/HCPCS: 70553; A9575

== ENCOUNTER → 2024-07-09 | Outpatient (CLI) | payer MEDICARE, BC, SELFPAY | END | disposition home or self-care (01) | PROVIDERS: PCP Internal Medicine; Referring Provider Psychiatry & Neurology Neurology; Visit Provider Psychiatry & Neurology Neurology | DX: G47.10 Hypersomnia, unspecified (principal) | CPT/HCPCS: 95806; 95819 ==

== ENCOUNTER → 2024-07-30 | Outpatient (CLI) | payer MEDICARE, BC, SELFPAY ==
[2024-07-30 10:06] LABS: Squamous Epithelial Cells - UA 0 SEEN /hpf (5-10)
[2024-07-30 10:13] LABS: Glucose, Dipstick Normal (Normal); Ketone-Dipstick Negative (Negative); Leukocyte Esterase-Dipstick Negative /ul (Negative); Nitrite-Dipstick Positive (Negative); Occult Blood-Urine 10 /ul (Negative); Protein-Dipstick 30 mg/dl (Negative); Urine Clarity Clear (Clear); Urine Urobilinogen 8 mg/dl (Normal)
[2024-07-30 10:18] LABS: Color, Urine SEE COMMENT BELOW (Yellow); Urine Bilirubin Dipstick 6 mg/dL (Negative)
[2024-07-30 10:27] LABS: Bacteria 2+ /hpf (None Seen); Mucous, Urine 2+ /hpf (<or=2+); Red Blood Cells-Urine 0-5 SEEN /hpf (0-5); Transitional Epithelial - Ur 0-5 SEEN /hpf (0-5); White Blood Cells 10-25 SEEN /hpf (0-5)
== END | disposition home or self-care (01) ==
PROVIDERS: PCP Internal Medicine; Referring Provider Physician Assistant Surgical; Visit Provider Physician Assistant Surgical
DX: N39.0 Urinary tract infection, site not specified (principal)
CPT/HCPCS: 81001; 87086; 87088

== ENCOUNTER → 2024-10-23 | Outpatient (CLI) | payer MEDICARE, BC, SELFPAY ==
--- NOTE | 2024-10-23 12:48 | US_ITS ---
HISTORY: UTI. TECHNIQUE: Trinidad scale and color doppler images were obtained of the kidneys. 64 images. COMPARISON: CT 06/04/2018. FINDINGS: RIGHT KIDNEY: 10.1 cm in length. Cortical thickness 1.2 cm. Echogenicity unremarkable. No hydronephrosis. No gross renal mass demonstrated. LEFT KIDNEY: 10.9 cm in length. Cortical thickness 1.2 cm. Echogenicity unremarkable. No hydronephrosis. No gross renal mass demonstrated. URINARY BLADDER: Unremarkable and 72 cc with a 2 mm wall thickness. Bilateral ureteral jets visualized. US/Kidney and Bladder IMPRESSION: Unremarkable examination of the kidneys. Electronically Signed: Leann Humphreys MD at 15:15 EST ,
== END | disposition home or self-care (01) ==
LOC: US 12:47
PROVIDERS: PCP Internal Medicine; Referring Provider Urology; Visit Provider Urology
DX: N39.0 Urinary tract infection, site not specified (principal)
CPT/HCPCS: 76770